=== PATIENT | female | born 1950 | race Caucasian/White ===

== ENCOUNTER 2017-01-08 17:03 | Inpatient (IN) | payer OTHER ==
[~2017-01-08] VITALS: Ht 157.5 cm; Wt 110.8 kg
[2017-01-08] MEDS ORDERED: dilTIAZem IV PUSH 25 MG/5 ML VIAL IVP ONE (18:15)
[2017-01-08] MEDS ORDERED: HYDROmorphone 2 MG/ML VIAL IV ONE (18:15)
[2017-01-08] MEDS ORDERED: IV NORMAL SALINE 1000ML BAG 1,000 ML IV ONE (18:15)
[2017-01-08] MEDS ORDERED: ONDANSETRON PF 4 MG/2 ML VIAL. IV ONE (18:15)
[2017-01-08 18:22] LABS: BASO # 0.1 x10^3/uL (0.0-0.2); BASO % 1 % (0-3); EOS % 1 % (0-3); HEMATOCRIT 48.1 % (36.0-47.0); HEMOGLOBIN 16.2 g/dL (12.0-15.5); LYMPH # 1.3 x10^3/uL (1.0-4.8); LYMPH % 13 % (24-48); MEAN CORPUSCULAR HEMOGLOBIN 34 pg (25-35); MEAN CORPUSCULAR HGB CONC 34 g/dL (31-37); MEAN CORPUSCULAR VOLUME 99 fL (79-100); MONO % 8 % (0-9); NEUT % 76 % (31-73); PLATELET COUNT 215 x10^3/uL (140-400); RED BLOOD COUNT 4.84 x10^6/uL (3.50-5.40); WHITE BLOOD COUNT 9.6 x10^3/uL (4.0-11.0)
[2017-01-08 18:30] LABS: PROTHROMBIN TIME PATIENT 12.6 SEC (11.7-14.0)
[2017-01-08 18:45] LABS: CALCIUM 10.1 mg/dL (8.5-10.1); CREATININE 0.9 mg/dL (0.6-1.0); GFR 62.3; POTASSIUM 3.7 mmol/L (3.5-5.1)
[2017-01-08 18:51] LABS: TOTAL BILIRUBIN 0.9 mg/dL (0.2-1.0); TOTAL PROTEIN 8.2 g/dL (6.4-8.2)
[2017-01-08] MEDS ORDERED: NITROGLYCERIN SUBLINGUAL 0.4 MG BOTTLE OF 25. SL PRN (19:15)
[2017-01-08] MEDS ORDERED: ACETAMINOPHEN 325 MG TABLET. PO PRN (19:15)
[2017-01-08] MEDS ORDERED: fentaNYL PF VIAL 100 MCG/2 ML VIAL IV PRN (19:15)
[2017-01-08] MEDS ORDERED: ONDANSETRON PF 4 MG/2 ML VIAL. IV PRN ×3 (19:15→19:30)
--- NOTE | 2017-01-08 19:34 | PDOC1 ---
History and Physical Date of Admission Date of Admission DATE: 01/08/17 TIME: 19:26 Identification/Chief Complaint Chief Complaint palpitations, SOA Problems: Source Source: Caregiver, Chart review, Patient History of Present Illness History of Present Illness 66 y.o obese female, BMI 36, sent by [facility] after being found on Atrial fib flutter with HR 112 at the office,. NEw to her, NO hx CAD, CHF, atrial fib, Only HTN, dyslipidemia and OA with prev knee sxs. She actually fell few days ago, hurt her back, went to [place] er where xrays done showed no fx and was dcd on PO flexeril, pain meds, with no resolve, SHe came to her PCP as ff up for her back pain issue today and thats where they found she was in atrial fib, hence advised ER,. NOW at ER, HR 112, some palpitations, 2 cups black coffee drinker, no known thyroid issues. BEing started omn cardizem gtt. Her back pain is signif, more bothersome to her than anything else. Past Medical History Cardiovascular: HTN, Hyperlipidemia Past Surgical History Past Surgical History: , Hysterectomy, Other (mensical sx) Family History Family History: Hypertension Social History Smoke: Quit ALCOHOL: none Drugs: None Current Medications Current Medications Current Medications Hydromorphone HCl (Dilaudid) 1 mg 1X ONCE IV Last administered on 01/08/17 18 :56; Start 01/08/17 at 18:15; Stop 01/08/17 at 18:16; Status DC Ondansetron HCl (Zofran) 4 mg 1X ONCE IV Last administered on 01/08/17 18:55 ; Start 01/08/17 at 18:15; Stop 01/08/17 at 18:16; Status DC Sodium Chloride 1,000 ml @ 1,000 mls/hr 1X ONCE IV Last administered on 18:52; Start 01/08/17 at 18:15; Stop 01/08/17 at 19:14; Status DC Diltiazem HCl 125 mg/Dextrose 125 ml @ 0 mls/hr CONT PRN IV SEE I/O RECORD Last administered on 01/08/17 18:46; Start 01/08/17 at 18:15 Diltiazem HCl (Cardizem) 10 mg 1X ONCE IVP Last administered on 01/08/17t 18: 53; Start 01/08/17 at 18:15; Stop 01/08/17 at 18:16; Status DC Ondansetron HCl (Zofran) 4 mg PRN Q8HRS PRN IV NAUSEA/VOMITING; Start 01/08/17 at 19:15; Stop 01/09/17 at 19:14 Fentanyl Citrate (Fentanyl 2ml Vial) 50 mcg PRN Q2HR PRN IV PAIN; Start at 19:15; Stop 01/09/17 at 19:14 Acetaminophen (Tylenol) 650 mg PRN Q4HRS PRN PO FEVER; Start 01/08/17 at 19:15 ; Stop 01/09/17 at 19:14 Nitroglycerin (Nitrostat) 0.4 mg PRN Q5MIN PRN SL CHEST PAIN; Start 01/08/17 at 19:15; Stop 01/09/17 at 19:14 Allergies Allergies: Coded Allergies: codeine (Unverified Adverse Reaction, Mild, Nausea and Vomiting, 09/27/13) ROS Review of System as per HPI, palpitations, no chest pain, does have SOA Physical Exam General: Alert, Oriented X3, Cooperative, No acute distress HEENT: PERRLA, EOMI Lungs: Clear to auscultation, Normal air movement, Other (dec BS sec to inc AP diameter) Heart: S1S2, no thrills, no rubs, no gallops, no murmurs, irregularly irregular Cardiovascular: S1, S2 Abdomen: Normal bowel sounds, Soft, No tenderness, No hepatosplenomegaly, No masses Extremities: No clubbing, No cyanosis, No edema, Normal pulses, No tenderness/ swelling Skin: No rashes, No breakdown, No significant lesion Neuro: Normal gait, Normal speech, Strength at 5/5 X4 ext, Normal tone, Sensation intact, Cranial nerves 3-12 NL, Reflexes 2+ Psych/Mental Status: Mental status NL, Mood NL Vitals Vitals Vital Signs Date Time Temp Pulse Resp B/P (MAP) Pulse Ox O2 Delivery O2 Flow Rate FiO2 01/08/17 19:00 118 18 140/83 (102) 95 Room Air 01/08/17 17:51 98.0 98.0 Labs Labs Laboratory Tests Test 01/08/17 17:40 White Blood Count 9.6 x10^3/uL (4.0-11.0) Red Blood Count 4.84 x10^6/uL (3.50-5.40) Hemoglobin 16.2 g/dL (12.0-15.5) Hematocrit 48.1 % (36.0-47.0) Mean Corpuscular Volume 99 fL (79-100) Mean Corpuscular Hemoglobin 34 pg (25-35) Mean Corpuscular Hemoglobin Concent 34 g/dL (31-37) Red Cell Distribution Width 14.0 % (11.5-14.5) Platelet Count 215 x10^3/uL (140-400) Neutrophils (%) (Auto) 76 % (31-73) Lymphocytes (%) (Auto) 13 % (24-48) Monocytes (%) (Auto) 8 % (0-9) Eosinophils (%) (Auto) 1 % (0-3) Basophils (%) (Auto) 1 % (0-3) Neutrophils # (Auto) 7.3 x10^3uL (1.8-7.7) Lymphocytes # (Auto) 1.3 x10^3/uL (1.0-4.8) Monocytes # (Auto) 0.8 x10^3/uL (0.0-1.1) Eosinophils # (Auto) 0.1 x10^3/uL (0.0-0.7) Basophils # (Auto) 0.1 x10^3/uL (0.0-0.2) Prothrombin Time 12.6 SEC (11.7-14.0) Prothromb Time International Ratio 1.0 (0.8-1.1) Sodium Level 143 mmol/L (136-145) Potassium Level 3.7 mmol/L (3.5-5.1) Chloride Level 100 mmol/L (98-107) Carbon Dioxide Level 32 mmol/L (21-32) Anion Gap 11 (6-14) Blood Urea Nitrogen 23 mg/dL (7-20) Creatinine 0.9 mg/dL (0.6-1.0) Estimated GFR (Cockcroft-Gault) 62.3 BUN/Creatinine Ratio 26 (6-20) Glucose Level 118 mg/dL (70-99) Calcium Level 10.1 mg/dL (8.5-10.1) Total Bilirubin 0.9 mg/dL (0.2-1.0) Aspartate Amino Transf (AST/SGOT) 30 U/L (15-37) Alanine Aminotransferase (ALT/SGPT) 32 U/L (14-59) Alkaline Phosphatase 95 U/L (46-116) Troponin I Quantitative < 0.017 ng/mL (0.000-0.055) FR-Xsz-A-Type Natriuretic Peptide 699 pg/mL (0-124) Total Protein 8.2 g/dL (6.4-8.2) Albumin 4.0 g/dL (3.4-5.0) Albumin/Globulin Ratio 1.0 (1.0-1.7) Thyroid Stimulating Hormone (TSH) 2.007 uIU/mL (0.358-3.74) Laboratory Tests Test 01/08/17 17:40 White Blood Count 9.6 x10^3/uL (4.0-11.0) Red Blood Count 4.84 x10^6/uL (3.50-5.40) Hemoglobin 16.2 g/dL (12.0-15.5) Hematocrit 48.1 % (36.0-47.0) Mean Corpuscular Volume 99 fL (79-100) Mean Corpuscular Hemoglobin 34 pg (25-35) Mean Corpuscular Hemoglobin Concent 34 g/dL (31-37) Red Cell Distribution Width 14.0 % (11.5-14.5) Platelet Count 215 x10^3/uL (140-400) Neutrophils (%) (Auto) 76 % (31-73) Lymphocytes (%) (Auto) 13 % (24-48) Monocytes (%) (Auto) 8 % (0-9) Eosinophils (%) (Auto) 1 % (0-3) Basophils (%) (Auto) 1 % (0-3) Neutrophils # (Auto) 7.3 x10^3uL (1.8-7.7) Lymphocytes # (Auto) 1.3 x10^3/uL (1.0-4.8) Monocytes # (Auto) 0.8 x10^3/uL (0.0-1.1) Eosinophils # (Auto) 0.1 x10^3/uL (0.0-0.7) Basophils # (Auto) 0.1 x10^3/uL (0.0-0.2) Prothrombin Time 12.6 SEC (11.7-14.0) Prothromb Time International Ratio 1.0 (0.8-1.1) Sodium Level 143 mmol/L (136-145) Potassium Level 3.7 mmol/L (3.5-5.1) Chloride Level 100 mmol/L (98-107) Carbon Dioxide Level 32 mmol/L (21-32) Anion Gap 11 (6-14) Blood Urea Nitrogen 23 mg/dL (7-20) Creatinine 0.9 mg/dL (0.6-1.0) Estimated GFR (Cockcroft-Gault) 62.3 BUN/Creatinine Ratio 26 (6-20) Glucose Level 118 mg/dL (70-99) Calcium Level 10.1 mg/dL (8.5-10.1) Total Bilirubin 0.9 mg/dL (0.2-1.0) Aspartate Amino Transf (AST/SGOT) 30 U/L (15-37) Alanine Aminotransferase (ALT/SGPT) 32 U/L (14-59) Alkaline Phosphatase 95 U/L (46-116) Troponin I Quantitative < 0.017 ng/mL (0.000-0.055) MG-Inu-O-Type Natriuretic Peptide 699 pg/mL (0-124) Total Protein 8.2 g/dL (6.4-8.2) Albumin 4.0 g/dL (3.4-5.0) Albumin/Globulin Ratio 1.0 (1.0-1.7) Thyroid Stimulating Hormone (TSH) 2.007 uIU/mL (0.358-3.74) VTE Prophylaxis Ordered VTE Prophylaxis Devices: Yes VTE Pharmacological Prophylaxi: Yes Assessment/Plan Assessment/Plan 1. New atrial fib/flutter RVR 2. Obesity BMI 36 3. Recent fall with back injury 4. Acute back pain no resolve with PO pain meds 5. HTN, dyslipidemia - chronic stable 6. Ex smoker - quit 30 yrs ago Plan: Admit 2 [place] [facility] consult Check TSH, check mag calcium given atrial fib Will likely need at least echo Lovenox for DVT prophy CHADS score 2 - will defer AC to cards - depends whether how long she remains atrial fib COnsult physiatry re back pain [place] of lidoderm patch CHRISTOPHER flexeril, nSAID and prn narcs If no resolve might need MRI or CT back PT/OT PLan of care dw family and pt - agreeable Seen at ER RAMANDEEP BABCOCK MD Jan 08, 2017 19:33
--- NOTE | 2017-01-08 20:15 | PHYS DOC ---
Past Medical History Past Medical History: Anxiety, Depression, High Cholesterol, Hypertension Past Surgical History: Hysterectomy Additional Information: Quit about 30 years ago. Alcohol Use: None Additional Information: "Use to drink quite often but quit about the same time, years ago." Drug Use: None, Barbituate Adult General Chief Complaint Chief Complaint: OTHER COMPLAINTS HPI HPI Patient is a 66 year old female with a history of hypertension, high cholesterol, obstructive sleep apnea, presents here today secondary to abnormal EKG that was found with Dr. Archer's office. Patient reports that she fell on Wednesday and was seen at [facility] by me. Patient reports that she was given adequate pain medicines and then followed up with Dr. Archer. Patient saw Dr. Archer in his office today secondary to persistent pain to her lower back. While in his office the patient was found to be in rapid A. fib. Patient was transferred here to the ER for further evaluation. Patient denies any fevers shakes chills. Patient has any vomiting or diarrhea. Patient reports she does feel nauseous. Patient has any chest pain or pressure. Patient has any shortness of breath. Patient reports that she does have lower extremity edema however that is chronic and unchanged. Patient denies any orthopnea PND or dyspnea on exertion. Patient has any history of diabetes lung liver or kidney problems. Patient has no history of hypertension, stroke, CHF, PE, DVT. Patient does not smoke or drink. Review of systems: Constitutional: Denies fever or chills Eyes: Denies change in visual acuity, redness, or eye pain HENT: Denies nasal congestion or sore throat All other review systems are negative except as documented in the history of present illness portion. Physical exam: Constitutional: Well developed, well nourished, no acute distress, non-toxic appearance. HENT: Normocephalic, atraumatic, bilateral external ears normal, oropharynx moist, no oral exudates, nose normal. Eyes: PERRLA, EOMI, conjunctiva normal, no discharge. Neck: Normal range of motion, no tenderness, supple, no stridor. Cardiovascular: Irregularly irregular tachycardic rhythm. Lungs & Thorax: Bilateral breath sounds clear to auscultation Abdomen: Bowel sounds normal, soft, no tenderness, no masses, no pulsatile masses. Skin: Warm, dry, no erythema, no rash. Cool and clammy. Back: No tenderness, no CVA tenderness. Extremities: No tenderness, no cyanosis, no clubbing, ROM intact, 1+ bipedal edema. No calf tenderness. Neurologic: Alert and oriented X 3, normal motor function, normal sensory function, no focal deficits noted. Psychologic: Affect normal, judgement normal, mood normal. EKG: Atrial fibrillation with nonspecific ST-T wave abnormalities heart rate of [address] elevation [place]. Right bundle-branch block. Chest x-ray reveals enlarged heart no infiltrates or effusions. Patient's labs were within normal limits except for BNP of 699. Assessment and plan This is a 58-year-old female who presents here today secondary to new onset atrial fibrillation. Patient aside from being cool and clammy is asymptomatic. Patient denies any chest pain shortness of breath dysuria exertion or other heart failure symptoms. While the ER the patient was started on a Cardizem drip and bolus of Cardizem. Patient will be admitted to the [facility] for further evaluation and management of her new onset atrial fibrillation. Case has been discussed with Dr. davidson with assisting with care of this patient. Cardiology will be consult. Critical care time of 35 minutes reutilized and treatment and management of this patient's atrial fibrillation, SVT with RVR, new onset. Patient was given IV Cardizem to control her rate. Patient's blood pressure and rhythm has been monitored while in the ED. Current Medications Current Medications Current Medications Medications (Trade) Dose Ordered Sig/Moose Start Time Stop Time Status Last Admin Dose Admin Diltiazem HCl (Cardizem) 10 mg 1X ONCE 01/08/17 18:15 01/08/17 18:16 DC 01/08/17 18:53 10 MG Diltiazem HCl 125 mg/Dextrose 125 ml @ 0 mls/hr CONT PRN 01/08/17 18:15 01/08/17 18:46 2.5 MLS/HR Hydromorphone HCl (Dilaudid) 1 mg 1X ONCE 01/08/17 18:15 01/08/17 18:16 DC 01/08/17 18:56 1 MG Ondansetron HCl (Zofran) 4 mg 1X ONCE 01/08/17 18:15 01/08/17 18:16 DC 01/08/17 18:55 4 MG Sodium Chloride 1,000 ml @ 1,000 mls/hr 1X ONCE 01/08/17 18:15 01/08/17 19:14 DC 01/08/17 18:52 1,000 MLS/HR Allergies Allergies Allergies Coded Allergies Type Severity Reaction Last Updated Verified codeine Adverse Reaction Mild Nausea and Vomiting 09/27/13 No Current Patient Data Vital Signs Vital Signs Date Time Temp Pulse Resp B/P (MAP) Pulse Ox O2 Delivery O2 Flow Rate FiO2 01/08/17 19:00 118 18 140/83 (102) 95 Room Air 01/08/17 17:51 98.0 98.0 Lab Values Laboratory Tests Test 01/08/17 17:40 White Blood Count 9.6 x10^3/uL (4.0-11.0) Red Blood Count 4.84 x10^6/uL (3.50-5.40) Hemoglobin 16.2 g/dL (12.0-15.5) H Hematocrit 48.1 % (36.0-47.0) H Mean Corpuscular Volume 99 fL (79-100) Mean Corpuscular Hemoglobin 34 pg (25-35) Mean Corpuscular Hemoglobin Concent 34 g/dL (31-37) Red Cell Distribution Width 14.0 % (11.5-14.5) Platelet Count 215 x10^3/uL (140-400) Neutrophils (%) (Auto) 76 % (31-73) H Lymphocytes (%) (Auto) 13 % (24-48) L Monocytes (%) (Auto) 8 % (0-9) Eosinophils (%) (Auto) 1 % (0-3) Basophils (%) (Auto) 1 % (0-3) Neutrophils # (Auto) 7.3 x10^3uL (1.8-7.7) Lymphocytes # (Auto) 1.3 x10^3/uL (1.0-4.8) Monocytes # (Auto) 0.8 x10^3/uL (0.0-1.1) Eosinophils # (Auto) 0.1 x10^3/uL (0.0-0.7) Basophils # (Auto) 0.1 x10^3/uL (0.0-0.2) Prothrombin Time 12.6 SEC (11.7-14.0) Prothrombin Time INR 1.0 (0.8-1.1) Sodium Level 143 mmol/L (136-145) Potassium Level 3.7 mmol/L (3.5-5.1) Chloride Level 100 mmol/L (98-107) Carbon Dioxide Level 32 mmol/L (21-32) Anion Gap 11 (6-14) Blood Urea Nitrogen 23 mg/dL (7-20) H Creatinine 0.9 mg/dL (0.6-1.0) Estimated GFR (Cockcroft-Gault) 62.3 BUN/Creatinine Ratio 26 (6-20) H Glucose Level 118 mg/dL (70-99) H Calcium Level 10.1 mg/dL (8.5-10.1) Magnesium Level 1.9 mg/dL (1.8-2.4) Total Bilirubin 0.9 mg/dL (0.2-1.0) Aspartate Amino Transferase (AST) 30 U/L (15-37) Alanine Aminotransferase (ALT) 32 U/L (14-59) Alkaline Phosphatase 95 U/L (46-116) Troponin I Quantitative < 0.017 ng/mL (0.000-0.055) KQ-Ssf-L-Type Natriuretic Peptide 699 pg/mL (0-124) H Total Protein 8.2 g/dL (6.4-8.2) Albumin 4.0 g/dL (3.4-5.0) Albumin/Globulin Ratio 1.0 (1.0-1.7) Thyroid Stimulating Hormone (TSH) 2.007 uIU/mL (0.358-3.74) Laboratory Tests 01/08/17 17:40 Laboratory Tests 01/08/17 17:40 EKG EKG [] Radiology/Procedures Radiology/Procedures [] Course & Med Decision Making Course & Med Decision Making Pertinent Labs and Imaging studies reviewed. (See chart for details) [] Dragon Disclaimer Dragon Disclaimer This electronic medical record was generated, in whole or in part, using a voice recognition dictation system. Departure Departure Impression: Primary Impression: New onset a-fib Disposition: ADMITTED INPATIENT Admitting Physician: Meredith Farley Condition: GUARDED Referrals: BEBETO ARCHER Jr, MD (PCP) YASMEEN REAL MD Jan 08, 2017 20:15
[2017-01-08 20:30] VITALS: BP 146/67
[2017-01-08] MEDS: LIDOCAINE (700MG/PATCH) PATCH. TD SCH (21:37)
[2017-01-08] MEDS: IBUPROFEN 600 MG TABLET. PO SCH (21:38)
[2017-01-08] MEDS: CYCLOBENZAPRINE 10 MG TABLET. PO SCH (21:38)
[2017-01-08] MEDS ORDERED: CYCL10TA2 PO (22:53)
[2017-01-08] MEDS ORDERED: HYDR-2758 PO (22:53)
[2017-01-08] MEDS ORDERED: LOSA1TAB22 PO (22:53)
[2017-01-08] MEDS ORDERED: SERT100T PO (22:53)
[2017-01-08] MEDS ORDERED: SIMV40TA3 PO (22:53)
[2017-01-08] MEDS ORDERED: IBUP-1007 PO (22:53)
[2017-01-08 23:45] VITALS: BP 129/67
[2017-01-09 03:30] VITALS: BP 113/71
[2017-01-09 07:00] VITALS: BP 106/64
[2017-01-09] MEDS ORDERED: DOCU-109 PO (07:17)
[2017-01-09] MEDS ORDERED: ENOXAPARIN 40 MG/0.4 ML SYRINGE. SQ SCH (09:00)
--- NOTE | 2017-01-09 09:06 | RAD ---
AP chest. History: Supraventricular tachycardia AP view was taken of the chest. Heart is upper normal in size. There is no effusion. There are no confluent infiltrates. Impression: 1. No acute chest disease.
[2017-01-09] MEDS: MAGNESIUM HYDROXIDE 2,400 MG/30 ML ORAL.SUSP. PO PRN (09:22)
[2017-01-09] MEDS: CYCLOBENZAPRINE 10 MG TABLET. PO SCH (09:23)
[2017-01-09] MEDS: LIDOCAINE (700MG/PATCH) PATCH. TD SCH (09:23)
[2017-01-09] MEDS: POLYETHYLENE GLYCOL 3350 17 GM PACKET. PO SCH (09:23)
[2017-01-09] MEDS: IBUPROFEN 600 MG TABLET. PO SCH (09:24)
--- NOTE | 2017-01-09 10:51 | PDOC ---
PROGRESS NOTES Chief Complaint Chief Complaint 1. New atrial fib/flutter RVR 2. Obesity BMI 36 3. Recent fall with back injury 4. Acute back pain no resolve with PO pain meds 5. HTN, dyslipidemia - chronic stable 6. Ex smoker - quit 30 yrs ago History of Present Illness History of Present Illness BAck hurts mid to lower, right side more Fell recently - xrays at [facility] neg In and out of atrial fib - [place] [facility] [place] electrical cardioversion on wednesday PLAN: CArdioversion Wednesday [facility] Phsyiatry is now seeing pt - dw physiatry might need some imaging - my lidoderm, NSAId etc not affording good relief Ok to have PT/OT - Dw Charlee Vitals Vitals Vital Signs Date Time Temp Pulse Resp B/P (MAP) Pulse Ox O2 Delivery O2 Flow Rate FiO2 01/09/17 07:00 97.6 82 18 106/64 (78) 90 Room Air 97.6 01/08/17 20:00 2.0 Physical Exam General: Alert, Oriented X3, Cooperative, No acute distress Abdomen: Normal bowel sounds, Soft, No tenderness, No hepatosplenomegaly, No masses Extremities: No clubbing, No cyanosis, No edema, Normal pulses, No tenderness/ swelling Skin: No rashes, No breakdown, No significant lesion Labs LABS Laboratory Tests Test 01/08/17 17:40 01/09/17 01:00 01/09/17 06:45 White Blood Count 9.6 x10^3/uL (4.0-11.0) Red Blood Count 4.84 x10^6/uL (3.50-5.40) Hemoglobin 16.2 g/dL (12.0-15.5) Hematocrit 48.1 % (36.0-47.0) Mean Corpuscular Volume 99 fL (79-100) Mean Corpuscular Hemoglobin 34 pg (25-35) Mean Corpuscular Hemoglobin Concent 34 g/dL (31-37) Red Cell Distribution Width 14.0 % (11.5-14.5) Platelet Count 215 x10^3/uL (140-400) Neutrophils (%) (Auto) 76 % (31-73) Lymphocytes (%) (Auto) 13 % (24-48) Monocytes (%) (Auto) 8 % (0-9) Eosinophils (%) (Auto) 1 % (0-3) Basophils (%) (Auto) 1 % (0-3) Neutrophils # (Auto) 7.3 x10^3uL (1.8-7.7) Lymphocytes # (Auto) 1.3 x10^3/uL (1.0-4.8) Monocytes # (Auto) 0.8 x10^3/uL (0.0-1.1) Eosinophils # (Auto) 0.1 x10^3/uL (0.0-0.7) Basophils # (Auto) 0.1 x10^3/uL (0.0-0.2) Prothrombin Time 12.6 SEC (11.7-14.0) Prothromb Time International Ratio 1.0 (0.8-1.1) Sodium Level 143 mmol/L (136-145) Potassium Level 3.7 mmol/L (3.5-5.1) Chloride Level 100 mmol/L (98-107) Carbon Dioxide Level 32 mmol/L (21-32) Anion Gap 11 (6-14) Blood Urea Nitrogen 23 mg/dL (7-20) Creatinine 0.9 mg/dL (0.6-1.0) Estimated GFR (Cockcroft-Gault) 62.3 BUN/Creatinine Ratio 26 (6-20) Glucose Level 118 mg/dL (70-99) Calcium Level 10.1 mg/dL (8.5-10.1) Magnesium Level 1.9 mg/dL (1.8-2.4) Total Bilirubin 0.9 mg/dL (0.2-1.0) Aspartate Amino Transf (AST/SGOT) 30 U/L (15-37) Alanine Aminotransferase (ALT/SGPT) 32 U/L (14-59) Alkaline Phosphatase 95 U/L (46-116) Troponin I Quantitative < 0.017 ng/mL (0.000-0.055) < 0.017 ng/mL (0.000-0.055) < 0.017 ng/mL (0.000-0.055) AA-Rbb-I-Type Natriuretic Peptide 699 pg/mL (0-124) Total Protein 8.2 g/dL (6.4-8.2) Albumin 4.0 g/dL (3.4-5.0) Albumin/Globulin Ratio 1.0 (1.0-1.7) Thyroid Stimulating Hormone (TSH) 2.007 uIU/mL (0.358-3.74) Review of Systems Review of Systems back hurts, no CP, no SOA Comment Review of Relevant I have reviewed the following items peter (where applicable) has been applied. Labs Laboratory Tests Test 01/08/17 17:40 01/09/17 01:00 01/09/17 06:45 White Blood Count 9.6 x10^3/uL (4.0-11.0) Red Blood Count 4.84 x10^6/uL (3.50-5.40) Hemoglobin 16.2 g/dL (12.0-15.5) Hematocrit 48.1 % (36.0-47.0) Mean Corpuscular Volume 99 fL (79-100) Mean Corpuscular Hemoglobin 34 pg (25-35) Mean Corpuscular Hemoglobin Concent 34 g/dL (31-37) Red Cell Distribution Width 14.0 % (11.5-14.5) Platelet Count 215 x10^3/uL (140-400) Neutrophils (%) (Auto) 76 % (31-73) Lymphocytes (%) (Auto) 13 % (24-48) Monocytes (%) (Auto) 8 % (0-9) Eosinophils (%) (Auto) 1 % (0-3) Basophils (%) (Auto) 1 % (0-3) Neutrophils # (Auto) 7.3 x10^3uL (1.8-7.7) Lymphocytes # (Auto) 1.3 x10^3/uL (1.0-4.8) Monocytes # (Auto) 0.8 x10^3/uL (0.0-1.1) Eosinophils # (Auto) 0.1 x10^3/uL (0.0-0.7) Basophils # (Auto) 0.1 x10^3/uL (0.0-0.2) Prothrombin Time 12.6 SEC (11.7-14.0) Prothromb Time International Ratio 1.0 (0.8-1.1) Sodium Level 143 mmol/L (136-145) Potassium Level 3.7 mmol/L (3.5-5.1) Chloride Level 100 mmol/L (98-107) Carbon Dioxide Level 32 mmol/L (21-32) Anion Gap 11 (6-14) Blood Urea Nitrogen 23 mg/dL (7-20) Creatinine 0.9 mg/dL (0.6-1.0) Estimated GFR (Cockcroft-Gault) 62.3 BUN/Creatinine Ratio 26 (6-20) Glucose Level 118 mg/dL (70-99) Calcium Level 10.1 mg/dL (8.5-10.1) Magnesium Level 1.9 mg/dL (1.8-2.4) Total Bilirubin 0.9 mg/dL (0.2-1.0) Aspartate Amino Transf (AST/SGOT) 30 U/L (15-37) Alanine Aminotransferase (ALT/SGPT) 32 U/L (14-59) Alkaline Phosphatase 95 U/L (46-116) Troponin I Quantitative < 0.017 ng/mL (0.000-0.055) < 0.017 ng/mL (0.000-0.055) < 0.017 ng/mL (0.000-0.055) YR-Oia-A-Type Natriuretic Peptide 699 pg/mL (0-124) Total Protein 8.2 g/dL (6.4-8.2) Albumin 4.0 g/dL (3.4-5.0) Albumin/Globulin Ratio 1.0 (1.0-1.7) Thyroid Stimulating Hormone (TSH) 2.007 uIU/mL (0.358-3.74) Laboratory Tests Test 01/08/17 17:40 01/09/17 01:00 01/09/17 06:45 White Blood Count 9.6 x10^3/uL (4.0-11.0) Red Blood Count 4.84 x10^6/uL (3.50-5.40) Hemoglobin 16.2 g/dL (12.0-15.5) Hematocrit 48.1 % (36.0-47.0) Mean Corpuscular Volume 99 fL (79-100) Mean Corpuscular Hemoglobin 34 pg (25-35) Mean Corpuscular Hemoglobin Concent 34 g/dL (31-37) Red Cell Distribution Width 14.0 % (11.5-14.5) Platelet Count 215 x10^3/uL (140-400) Neutrophils (%) (Auto) 76 % (31-73) Lymphocytes (%) (Auto) 13 % (24-48) Monocytes (%) (Auto) 8 % (0-9) Eosinophils (%) (Auto) 1 % (0-3) Basophils (%) (Auto) 1 % (0-3) Neutrophils # (Auto) 7.3 x10^3uL (1.8-7.7) Lymphocytes # (Auto) 1.3 x10^3/uL (1.0-4.8) Monocytes # (Auto) 0.8 x10^3/uL (0.0-1.1) Eosinophils # (Auto) 0.1 x10^3/uL (0.0-0.7) Basophils # (Auto) 0.1 x10^3/uL (0.0-0.2) Prothrombin Time 12.6 SEC (11.7-14.0) Prothromb Time International Ratio 1.0 (0.8-1.1) Sodium Level 143 mmol/L (136-145) Potassium Level 3.7 mmol/L (3.5-5.1) Chloride Level 100 mmol/L (98-107) Carbon Dioxide Level 32 mmol/L (21-32) Anion Gap 11 (6-14) Blood Urea Nitrogen 23 mg/dL (7-20) Creatinine 0.9 mg/dL (0.6-1.0) Estimated GFR (Cockcroft-Gault) 62.3 BUN/Creatinine Ratio 26 (6-20) Glucose Level 118 mg/dL (70-99) Calcium Level 10.1 mg/dL (8.5-10.1) Magnesium Level 1.9 mg/dL (1.8-2.4) Total Bilirubin 0.9 mg/dL (0.2-1.0) Aspartate Amino Transf (AST/SGOT) 30 U/L (15-37) Alanine Aminotransferase (ALT/SGPT) 32 U/L (14-59) Alkaline Phosphatase 95 U/L (46-116) Troponin I Quantitative < 0.017 ng/mL (0.000-0.055) < 0.017 ng/mL (0.000-0.055) < 0.017 ng/mL (0.000-0.055) VW-Bhr-J-Type Natriuretic Peptide 699 pg/mL (0-124) Total Protein 8.2 g/dL (6.4-8.2) Albumin 4.0 g/dL (3.4-5.0) Albumin/Globulin Ratio 1.0 (1.0-1.7) Thyroid Stimulating Hormone (TSH) 2.007 uIU/mL (0.358-3.74) Medications Current Medications Hydromorphone HCl (Dilaudid) 1 mg 1X ONCE IV Last administered on 01/08/17 18 :56; Start 01/08/17 at 18:15; Stop 01/08/17 at 18:16; Status DC Ondansetron HCl (Zofran) 4 mg 1X ONCE IV Last administered on 01/08/17 18:55 ; Start 01/08/17 at 18:15; Stop 01/08/17 at 18:16; Status DC Sodium Chloride 1,000 ml @ 1,000 mls/hr 1X ONCE IV Last administered on 18:52; Start 01/08/17 at 18:15; Stop 01/08/17 at 19:14; Status DC Diltiazem HCl 125 mg/Dextrose 125 ml @ 0 mls/hr CONT PRN IV SEE I/O RECORD Last administered on 01/09/17 06:14; Start 01/08/17 at 18:15 Diltiazem HCl (Cardizem) 10 mg 1X ONCE IVP Last administered on 01/08/17 18: 53; Start 01/08/17 at 18:15; Stop 01/08/17 at 18:16; Status DC Ondansetron HCl (Zofran) 4 mg PRN Q8HRS PRN IV NAUSEA/VOMITING; Start 01/08/17 at 19:15; Stop 01/08/17 at 19:25; Status DC Fentanyl Citrate (Fentanyl 2ml Vial) 50 mcg PRN Q2HR PRN IV PAIN Last administered on 01/09/17 04:22; Start 01/08/17 at 19:15; Stop 01/09/17 at 19:14 Acetaminophen (Tylenol) 650 mg PRN Q4HRS PRN PO FEVER; Start 01/08/17 at 19:15 ; Stop 01/09/17 at 19:14 Nitroglycerin (Nitrostat) 0.4 mg PRN Q5MIN PRN SL CHEST PAIN; Start 01/08/17 at 19:15; Stop 01/09/17 at 19:14 Ondansetron HCl (Zofran) 4 mg PRN Q6HRS PRN IV NAUSEA/VOMITING Last administered on 01/09/17 07:22; Start 01/08/17 at 19:30; Stop 01/09/17 at 19:29 Cyclobenzaprine HCl (Flexeril) 10 mg TID PO Last administered on 01/09/17 09: 23; Start 01/08/17 at 21:00 Ibuprofen (Motrin) 600 mg TID PO Last administered on 01/09/17 09:24; Start at 21:00 Lidocaine (Lidoderm) 1 patch DAILY TD Last administered on 01/09/17 09:23; Start 01/08/17 at 19:30 Ondansetron HCl (Zofran) 4 mg PRN Q6HRS PRN IV NAUSEA/VOMITING; Start 01/08/17 at 19:30; Stop 01/09/17 at 19:29; Status UNV Enoxaparin Sodium (Lovenox 40mg Syringe) 40 mg Q24H SQ Last administered on 09:24; Start 01/09/17 at 09:00 Polyethylene Glycol (miraLAX PACKET) 17 gm DAILY PO Last administered on 09:23; Start 01/09/17 at 09:30 Magnesium Hydroxide (Milk Of Magnesia) 2,400 mg PRN DAILY PRN PO CONSTIPATION Last administered on 01/09/17 09:22; Start 01/09/17 at 09:00 Active Scripts Active Reported Colace (Docusate Sodium) 100 Mg Capsule 100 Mg PO BID PRN Hydrocodone-Apap 5-325 (Hydrocodone Bit/Acetaminophen) 1 Each Tablet 1 Tab PO PRN Q6HRS PRN Cyclobenzaprine Hcl 10 Mg Tablet 1 Tab PO TID Ibuprofen 600 Mg Tablet 600 Mg PO PRN Q6HRS PRN Simvastatin 40 Mg Tablet 1 Tab PO QHS Losartan-Hctz 100-25 Mg Tab (Losartan/Hydrochlorothiazide) 1 Each Tablet 1 Tab PO DAILY Zoloft (Sertraline Hcl) 100 Mg Tablet 1 Tab PO DAILY Vitals/I & O Vital Sign - Last 24 Hours 01/08/17 01/08/17 01/08/17 01/08/17 17:51 18:30 18:53 18:56 Temp 98.0 98.0 Pulse 119 130 133 Resp 21 20 16 B/P (MAP) 153/94 (113) 151/111 (124) 157/83 Pulse Ox 94 92 96 O2 Delivery Room Air Room Air Room Air 01/08/17 01/08/17 01/08/17 01/08/17 19:00 19:30 20:00 20:30 Temp 97.4 97.4 Pulse 118 110 106 96 Resp 18 20 20 20 B/P (MAP) 140/83 (102) 129/57 (81) 127/72 (90) 146/67 (93) Pulse Ox 95 88 94 99 O2 Delivery Room Air Room Air Nasal Cannula Room Air O2 Flow Rate 2.0 01/08/17 01/09/17 01/09/17 01/09/17 23:45 03:30 04:22 04:40 Temp 97.8 98.6 97.8 98.6 Pulse 104 94 Resp 18 16 18 16 B/P (MAP) 129/67 (87) 113/71 (85) Pulse Ox 95 90 O2 Delivery Room Air Room Air Room Air Room Air 01/09/17 07:00 Temp 97.6 97.6 Pulse 82 Resp 18 B/P (MAP) 106/64 (78) Pulse Ox 90 O2 Delivery Room Air Intake and Output 01/09/17 01/09/17 01/10/17 14:59 22:59 06:59 Intake Total 250 ml Balance 250 ml RAMANDEEP BABCOCK MD Jan 09, 2017 10:51
[2017-01-09 11:00] VITALS: BP 128/59
--- NOTE | 2017-01-09 11:13 | CONS ---
DATE OF CONSULTATION: 01/09/2017 REASON FOR CONSULTATION: New onset atrial fibrillation. HISTORY OF PRESENT ILLNESS: Mrs. Goldstein is a pleasant 66-year-old woman who comes to the hospital in the setting of new onset atrial fibrillation. She had a fall approximately 3 weeks ago and did not have any fractures. She was followed up in the primary care physician's office for persistent back pain, at which time she was noted to be in atrial fibrillation, and sent to the ER for further evaluation and treatment. She was started on Cardizem drip and has had control of her heart rate, and Cardiology has been asked to provide further input regarding her atrial fibrillation. In speaking with the patient, she reports fatigue over the course of the last [id number] or so. Denies any syncope, but does have occasional palpitations. She denies any chest pain. She does have a NYHA class 2-3 symptoms, depending on activity level. She reports compliance with her medications. She unfortunately is not compliant with her CPAP yet due to issues related to her mask. PAST MEDICAL HISTORY: 1. Obstructive sleep apnea. 2. Hypertension. 3. Dyslipidemia. 4. Morbid obesity. ALLERGIES: CODEINE. HOME CARDIOVASCULAR MEDICATIONS: 1. Simvastatin 40 mg daily. 2. Losartan/hydrochlorothiazide 100/25 daily. FAMILY HISTORY: Noncontributory. REVIEW OF SYSTEMS: Negative for 10 out of 14 systems reviewed, unless otherwise mentioned above in HPI. CURRENT CARDIOVASCULAR MEDICATIONS: Include diltiazem drip and Lovenox 40 mg subq for DVT dose. PHYSICAL EXAMINATION: VITAL SIGNS: Afebrile, heart rate 98, respiratory rate 18, blood pressure 106/64, 90% on room air. GENERAL: She is in mild distress due to back pain and lying in bed. HEAD AND NECK: Unremarkable. HEART: Irregularly irregular, without any significant murmurs, rubs, gallops. ABDOMEN: Obese, nontender, and unable to appreciate significant masses. EXTREMITIES: No clubbing, cyanosis or significant edema. MUSCULOSKELETAL: No obvious traumatic lesions noted, but significant immobility and decreased mobility of her legs due to pain. NEUROLOGIC: No focal deficits. DIAGNOSTIC STUDIES: Chest x-ray is unremarkable. Cardiac enzymes are negative x 3. BNP is mildly elevated at 699. Telemetry reveals atrial fibrillation with heart rate of 98. IMPRESSION: Presumed new onset atrial fibrillation in the setting of chronic comorbidities including hypertension, dyslipidemia, morbid obesity and obstructive sleep apnea. RECOMMENDATIONS: I discussed extensively with the patient the pathophysiology of atrial fibrillation including rate versus rhythm control, and the risks, benefits of anticoagulation. We also discussed the various approaches including a MCKAYLA-guided cardioversion as well as outpatient ablative therapies versus conservative management including medical management alone. At this present time, the patient wishes to pursue a cardioversion procedure, which I think is very reasonable. We will continue a Cardizem drip at this time and plan for a MCKAYLA-guided cardioversion on Wednesday, and we will initiate her on anticoagulation, given her CHADS-VASc score that is elevated at 3 for female gender, hypertension and age. Thank you for this consultation. SERENITY RICO MD DR: CHE/carolyn JOB#: [id number] / [id number] TARA
[2017-01-09] MEDS ORDERED: MAGNESIUM CITRATE 296 ML SOLUTION. PO PRN (11:30)
[2017-01-09] MEDS ORDERED: BISACODYL 10 MG SUPP.RECT. PR PRN (11:30)
--- NOTE | 2017-01-09 12:48 | EKG ---
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
[2017-01-09] MEDS: methylPREDNISolone 4 MG TABLET. PO SCH ×4 (12:55→21:06)
[2017-01-09] MEDS: PANTOPRAZOLE 40 MG TABLET.DR. PO SCH (12:55)
[2017-01-09] MEDS: BISACODYL 5 MG TABLET.DR. PO SCH (12:55)
[2017-01-09] MEDS: HYDROcodone/APAP 10/325 1 TAB TABLET PO PRN ×2 (12:56→21:07)
[2017-01-09] MEDS ORDERED: HEPARIN PF for SUB-Q USE 5,000 UNIT/0.5 ML VIAL. SQ SCH (14:00)
[2017-01-09 15:00] VITALS: BP 164/84
[2017-01-09] MEDS: APIXABAN 5 MG TABLET. PO SCH ×2 (15:38→21:06)
--- NOTE | 2017-01-09 16:24 | RAD ---
MRI lumbar spine 01/09/2017. Reason for exam: Low back pain and right leg radiculopathy 5 days after falling. Sagittal STIR and sagittal and axial T1 and T2-weighted images were performed. There are no available comparison radiographs. FINDINGS: L1-2: Minimal disc bulging is seen. There is no significant disc protrusion. The canal and foramina are not significantly narrowed. L2-3: There is moderate broad-based disc protrusion. This flattens the thecal sac anteriorly and extends into the lower foramina on each side. On the right, there may be some extrusion of disc superiorly behind L2. There are mild hypertrophic changes in the posterior elements and there is mild spinal stenosis. L3-4: There is degenerative loss of disc height. There is suggestion of previous surgery. There is no disc protrusion or spinal stenosis. The foramina are not significantly narrowed. L4-5: There is degenerative loss of disc height. There is no disc protrusion. The spinal canal is not narrowed. The foramina appear fairly well maintained. L5-S1: There is some posterior lateral disc bulging into the lower foramina. There is no midline disc protrusion or spinal stenosis. There is suggestion of mild foraminal narrowing. There is some loss of height involving L1 inferiorly with evidence of a fracture line and bone marrow edema. This suggests a recent fracture. There is mild retropulsion. There is roughly 30 percent loss of height. The other lumbar vertebral bodies are normal in height. There is mild edema at the inferior endplate of L2 and superior endplate of L3, likely reactive to the adjacent disc disease. The conus medullaris ends at L1-2. IMPRESSION: There is moderate compression of L1. This appears recent. There is disc protrusion at L2-3 with possible mild extrusion of disc behind L2 toward the right side. Electronically signed by: Gregg Levine Jr., MD (01/09/2017 4:20 PM) [facility]
[2017-01-09 19:55] VITALS: BP 150/94
[2017-01-09] MEDS ORDERED: SERTRALINE 50 MG TABLET. PO ONE (21:00)
[2017-01-09] MEDS: SIMVASTATIN 40 MG TABLET. PO SCH (21:06)
[2017-01-09 23:48] VITALS: BP 154/70
--- NOTE | 2017-01-09 23:56 | CONS ---
DATE OF CONSULTATION: 01/09/2017 LOCATION: She is in room 210. ATTENDING PHYSICIAN: Dr. Farley. The patient was seen at the request of Dr. Farley for rehab evaluation. HISTORY: This is a 66-year-old right-handed female patient with known hypertension, hyperlipidemia, status post hysterectomy, meniscus surgery to her knees, family history of hypertension. The patient quit smoking in the past. The patient has known ALLERGIC TO CODEINE. Dr. Jamison Perez is her family physician. She was admitted after being seen by her nurse practitioner at Dr. Perez's office, noted with new onset atrial fibrillation and she was admitted for further evaluation and treatment. No apparent thyroid issues. The patient admits to lower back pain on and off before, but since she fell accidentally landed on her buttock on 01/04/2017, she started having severe lower back pain with radiation to her right lower extremity with associated tingling and numbness. She is not sure if she is emptying her bladder completely. She also admits left shoulder pain going on for about 3 years. The patient lives in [facility]. No steps for her to manage. Her granddaughter and her family lives upstairs. The patient was independent with her mobility and self-care skills prior to the present fall. PHYSICAL EXAMINATION: Today, revealed a middle-aged female. She is alert, oriented to time, place, person and circumstance and follows commands appropriately, moves all 4 extremities voluntarily where she had 5/5 grade muscle strength and deep tendon reflexes are 1 to 2+ and symmetrical with absent right ankle jerks and she had equal perception of touch and pinprick sensation bilaterally, positive straight leg raising test on the right side, which causes pain in her back. She had some pain on external rotation at right hip joint. She had painful limited movements of her lumbar spine with tenderness to palpation over lumbar paraspinal muscles extending over to sacroiliac joint area and she also had some tenderness to palpation over anterior aspect of the left shoulder. The patient is independent from rolling side to side. I have not tested her transfers or ambulation skills at this time. She had mild crepitus on range of motion of her knee joints without any obvious knee joint effusion. ASSESSMENT: A middle-aged female with recent fall and lumbar sprain with probable associated degenerative disk disease with right lumbar radiculitis to rule out herniated nucleus pulposus at L5-S1 level. The patient also presents with chronic left shoulder tendinitis and degenerative joints of both knees without much pain and hypertension and recent onset atrial fibrillation. RECOMMENDATIONS: Agree with the plans for physical therapy to obtain MRI scan of her lumbar vertebrae without contrast and to start her on Medrol Dosepak and hydrocodone for pain control, Flexeril p.r.n. as she is already complaining about dry mouth to check post-voiding urine residual to make sure she is emptying her bladder completely. Dr. Farley, I appreciate asking me to participate in the care of this interesting patient. I will be glad to follow her with you as needed for her rehabilitation. LOYDA ELLER MD DR: CHRISSY/carolyn JOB#: [id number] / [id number]
[2017-01-10 03:55] VITALS: BP 128/78
[2017-01-10] MEDS: HYDROcodone/APAP 10/325 1 TAB TABLET PO PRN ×4 (06:47→22:30)
[2017-01-10 07:00] VITALS: BP 121/76
--- NOTE | 2017-01-10 08:30 | PDOC ---
CARDIOLOGY PROGRESS NOTE SUBJECTIVE: Continues to have back pain. Denies any chest pain. Dyspnea stable. Fatigue persistent Having trouble with constipation. OBJECTIVE: Vital SIgns: Vital Signs Date Time Temp Pulse Resp B/P (MAP) Pulse Ox O2 Delivery O2 Flow Rate FiO2 01/10/17 06:47 18 01/10/17 03:55 97.9 94 128/78 (95) 94 Nasal Cannula 2.0 97.9 Objective: Resting in bed. Uncomfortable from back pain. Irr irr rhythm. no murmurs lungs clr abd obese no edema. CURRENT MEDICATIONS: eliquis cardizem losartan simvastatin ASSESSMENT: 1. New onset atrial fibrillation 2. Morbid obesity 3. intractable back pain Problems: PLAN: 1. Plan for MCKAYLA/CVN in a.m. Discussed r/b/a and patient wishes to proceed. 2. Continue present meds. SERENITY RICO MD Jan 10, 2017 08:30
[2017-01-10] MEDS: BISACODYL 5 MG TABLET.DR. PO SCH (09:00)
[2017-01-10] MEDS: POLYETHYLENE GLYCOL 3350 17 GM PACKET. PO SCH (09:03)
[2017-01-10] MEDS: SERTRALINE 50 MG TABLET. PO SCH (09:03)
[2017-01-10] MEDS: APIXABAN 5 MG TABLET. PO SCH ×2 (09:04→20:46)
[2017-01-10] MEDS: LOSARTAN POTASSIUM 50 MG TABLET. PO SCH (09:04)
[2017-01-10] MEDS: hydroCHLOROthiazide 25 MG TABLET PO SCH (09:05)
[2017-01-10] MEDS: methylPREDNISolone 4 MG TABLET. PO SCH ×3 (09:05→18:27)
[2017-01-10] MEDS: PANTOPRAZOLE 40 MG TABLET.DR. PO SCH (09:05)
[2017-01-10] MEDS: LIDOCAINE (700MG/PATCH) PATCH. TD SCH (09:06)
[2017-01-10] MEDS: CYCLOBENZAPRINE 10 MG TABLET. PO PRN ×2 (09:17→20:54)
[2017-01-10 11:00] VITALS: BP 152/76
[2017-01-10] MEDS: ANTI-COAG MONITOR BY PHARMACY. MC PRN (11:10)
--- NOTE | 2017-01-10 12:10 | PDOC ---
PROGRESS NOTES Chief Complaint Chief Complaint 1. New atrial fib/flutter RVR 2. Obesity BMI 36 3. Recent fall with back injury 4. Acute back pain no resolve with PO pain meds 5. HTN, dyslipidemia - chronic stable 6. Ex smoker - quit 30 yrs ago 7. Disc Bulge 2, L2 compression fx L1, recent - recent fall History of Present Illness History of Present Illness BAck pain continues MRI shows: IMPRESSION: There is moderate compression of L1. This appears recent. There is disc protrusion at L2-3 with possible mild extrusion of disc behind L2 toward the right side. Need to inc pain meds Plans on electrical cardioversion of atrial fib on wednesday PLAN: Involve neurosx re the above mRI Inc lortab to q4 Dw RN and pt Vitals Vitals Vital Signs Date Time Temp Pulse Resp B/P (MAP) Pulse Ox O2 Delivery O2 Flow Rate FiO2 01/10/17 11:00 97.4 91 18 152/76 (101) 94 Nasal Cannula 2.0 97.4 Physical Exam General: Alert, Oriented X3, Cooperative, No acute distress Abdomen: Normal bowel sounds, Soft, No tenderness, No hepatosplenomegaly, No masses Extremities: No clubbing, No cyanosis, No edema, Normal pulses, No tenderness/ swelling Skin: No rashes, No breakdown, No significant lesion Review of Systems Review of Systems back pain, no palp, CP, or SOA Comment Review of Relevant I have reviewed the following items peter (where applicable) has been applied. Labs Laboratory Tests Test 01/08/17 17:40 01/09/17 01:00 01/09/17 06:45 White Blood Count 9.6 x10^3/uL (4.0-11.0) Red Blood Count 4.84 x10^6/uL (3.50-5.40) Hemoglobin 16.2 g/dL (12.0-15.5) Hematocrit 48.1 % (36.0-47.0) Mean Corpuscular Volume 99 fL (79-100) Mean Corpuscular Hemoglobin 34 pg (25-35) Mean Corpuscular Hemoglobin Concent 34 g/dL (31-37) Red Cell Distribution Width 14.0 % (11.5-14.5) Platelet Count 215 x10^3/uL (140-400) Neutrophils (%) (Auto) 76 % (31-73) Lymphocytes (%) (Auto) 13 % (24-48) Monocytes (%) (Auto) 8 % (0-9) Eosinophils (%) (Auto) 1 % (0-3) Basophils (%) (Auto) 1 % (0-3) Neutrophils # (Auto) 7.3 x10^3uL (1.8-7.7) Lymphocytes # (Auto) 1.3 x10^3/uL (1.0-4.8) Monocytes # (Auto) 0.8 x10^3/uL (0.0-1.1) Eosinophils # (Auto) 0.1 x10^3/uL (0.0-0.7) Basophils # (Auto) 0.1 x10^3/uL (0.0-0.2) Prothrombin Time 12.6 SEC (11.7-14.0) Prothromb Time International Ratio 1.0 (0.8-1.1) Sodium Level 143 mmol/L (136-145) Potassium Level 3.7 mmol/L (3.5-5.1) Chloride Level 100 mmol/L (98-107) Carbon Dioxide Level 32 mmol/L (21-32) Anion Gap 11 (6-14) Blood Urea Nitrogen 23 mg/dL (7-20) Creatinine 0.9 mg/dL (0.6-1.0) Estimated GFR (Cockcroft-Gault) 62.3 BUN/Creatinine Ratio 26 (6-20) Glucose Level 118 mg/dL (70-99) Calcium Level 10.1 mg/dL (8.5-10.1) Magnesium Level 1.9 mg/dL (1.8-2.4) Total Bilirubin 0.9 mg/dL (0.2-1.0) Aspartate Amino Transf (AST/SGOT) 30 U/L (15-37) Alanine Aminotransferase (ALT/SGPT) 32 U/L (14-59) Alkaline Phosphatase 95 U/L (46-116) Troponin I Quantitative < 0.017 ng/mL (0.000-0.055) < 0.017 ng/mL (0.000-0.055) < 0.017 ng/mL (0.000-0.055) WJ-Llk-W-Type Natriuretic Peptide 699 pg/mL (0-124) Total Protein 8.2 g/dL (6.4-8.2) Albumin 4.0 g/dL (3.4-5.0) Albumin/Globulin Ratio 1.0 (1.0-1.7) Thyroid Stimulating Hormone (TSH) 2.007 uIU/mL (0.358-3.74) Medications Current Medications Hydromorphone HCl (Dilaudid) 1 mg 1X ONCE IV Last administered on 01/08/17 18 :56; Start 01/08/17 at 18:15; Stop 01/08/17 at 18:16; Status DC Ondansetron HCl (Zofran) 4 mg 1X ONCE IV Last administered on 01/08/17 18:55 ; Start 01/08/17 at 18:15; Stop 01/08/17 at 18:16; Status DC Sodium Chloride 1,000 ml @ 1,000 mls/hr 1X ONCE IV Last administered on 18:52; Start 01/08/17 at 18:15; Stop 01/08/17 at 19:14; Status DC Diltiazem HCl 125 mg/Dextrose 125 ml @ 0 mls/hr CONT PRN IV SEE I/O RECORD Last administered on 01/09/17 06:14; Start 01/08/17 at 18:15 Diltiazem HCl (Cardizem) 10 mg 1X ONCE IVP Last administered on 01/08/17 18: 53; Start 01/08/17 at 18:15; Stop 01/08/17 at 18:16; Status DC Ondansetron HCl (Zofran) 4 mg PRN Q8HRS PRN IV NAUSEA/VOMITING; Start 01/08/17 at 19:15; Stop 01/08/17 at 19:25; Status DC Fentanyl Citrate (Fentanyl 2ml Vial) 50 mcg PRN Q2HR PRN IV PAIN Last administered on 01/09/17 04:22; Start 01/08/17 at 19:15; Stop 01/09/17 at 19:14 ; Status DC Acetaminophen (Tylenol) 650 mg PRN Q4HRS PRN PO FEVER; Start 01/08/17 at 19:15 ; Stop 01/09/17 at 19:14; Status DC Nitroglycerin (Nitrostat) 0.4 mg PRN Q5MIN PRN SL CHEST PAIN; Start 01/08/17 at 19:15; Stop 01/09/17 at 19:14; Status DC Ondansetron HCl (Zofran) 4 mg PRN Q6HRS PRN IV NAUSEA/VOMITING Last administered on 01/09/17 07:22; Start 01/08/17 at 19:30; Stop 01/09/17 at 19:29 ; Status DC Cyclobenzaprine HCl (Flexeril) 10 mg TID PO Last administered on 01/09/17 09: 23; Start 01/08/17 at 21:00; Stop 01/09/17 at 11:12; Status DC Ibuprofen (Motrin) 600 mg TID PO Last administered on 01/09/17 09:24; Start at 21:00; Stop 01/09/17 at 11:12; Status DC Lidocaine (Lidoderm) 1 patch DAILY TD Last administered on 01/10/17 09:06; Start 01/08/17 at 19:30 Ondansetron HCl (Zofran) 4 mg PRN Q6HRS PRN IV NAUSEA/VOMITING; Start 01/08/17 at 19:30; Stop 01/09/17 at 19:29; Status UNV Enoxaparin Sodium (Lovenox 40mg Syringe) 40 mg Q24H SQ Last administered on 09:24; Start 01/09/17 at 09:00; Stop 01/09/17 at 10:55; Status DC Polyethylene Glycol (miraLAX PACKET) 17 gm DAILY PO Last administered on 09:03; Start 01/09/17 at 09:30 Magnesium Hydroxide (Milk Of Magnesia) 2,400 mg PRN DAILY PRN PO CONSTIPATION Last administered on 01/09/17 09:22; Start 01/09/17 at 09:00 Heparin Sodium (Porcine) (Heparin Sq) 5,000 unit Q8HRS SQ ; Start 01/09/17 at 14 :00; Stop 01/09/17 at 14:00; Status DC Cyclobenzaprine HCl (Flexeril) 10 mg PRN Q6HRS PRN PO MUSCLE SPASMS Last administered on 01/10/17 09:17; Start 01/10/17 at 09:00 Methylprednisolone (Medrol) 8 mg BID PO Last administered on 01/09/17 21:06; Start 01/09/17 at 11:30; Stop 01/09/17 at 21:01; Status DC Methylprednisolone (Medrol) 4 mg BIDPCLD PO Last administered on 01/09/17 18: 30; Start 01/09/17 at 12:30; Stop 01/09/17 at 17:31; Status DC Methylprednisolone (Medrol) 4 mg TIDPC PO Last administered on 01/10/17 09:05 ; Start 01/10/17 at 08:30; Stop 01/10/17 at 17:31 Methylprednisolone (Medrol) 8 mg QHS PO ; Start 01/10/17 at 21:00; Stop at 21:01 Methylprednisolone (Medrol) 4 mg QIDAFTMEAL PO ; Start 01/11/17 at 09:00; Stop 01/11/17 at 21:01 Methylprednisolone (Medrol) 4 mg TID PO ; Start 01/12/17 at 09:00; Stop at 21:01 Methylprednisolone (Medrol) 4 mg BID PO ; Start 01/13/17 at 09:00; Stop at 21:01 Methylprednisolone (Medrol) 4 mg DAILY PO ; Start 01/14/17 at 09:00; Stop at 09:01 Pantoprazole Sodium (Protonix) 40 mg DAILYAC PO Last administered on 01/10/17 09:05; Start 01/09/17 at 11:30 Acetaminophen/ Hydrocodone Bitart (Lortab 10/325) 1 tab PRN Q6HRS PRN PO PAIN Last administered on 01/10/17 06:47; Start 01/09/17 at 11:15 Bisacodyl (Dulcolax Supp) 10 mg PRN DAILY PRN [place] CONSTIPATION; Start 01/09/17 at 11:30 Bisacodyl (Dulcolax Tab) 10 mg DAILY PO Last administered on 01/09/17 12:55; Start 01/09/17 at 12:00 Magnesium Citrate (Citroma) 296 ml PRN 1X PRN PO CONSTIPATION Last administered on 01/09/17 15:41; Start 01/09/17 at 11:30 Apixaban (Eliquis) 5 mg BID PO Last administered on 01/10/17 09:04; Start at 14:30 Diltiazem HCl (Cardizem 24hr Cd) 120 mg DAILY PO Last administered on 09:05; Start 01/09/17 at 14:30 Info (Anti-Coagulation Monitoring By Pharmacy) 1 each PRN DAILY PRN MC SEE COMMENTS Last administered on 01/10/17 11:10; Start 01/09/17 at 14:00 Simvastatin (Zocor) 40 mg QHS PO Last administered on 01/09/17 21:06; Start at 21:00 Losartan Potassium (Cozaar) 100 mg DAILY PO Last administered on 01/10/17 09: 04; Start 01/10/17 at 09:00 Sertraline HCl (Zoloft) 100 mg DAILY PO Last administered on 01/10/17 09:03; Start 01/10/17 at 09:00 Hydrochlorothiazide (Hydrodiuril) 25 mg DAILY PO Last administered on 09:05; Start 01/10/17 at 09:00 Sertraline HCl (Zoloft) 100 mg 1X ONCE PO Last administered on 01/09/17 21:07 ; Start 01/09/17 at 21:00; Stop 01/09/17 at 21:01; Status DC Active Scripts Active Reported Colace (Docusate Sodium) 100 Mg Capsule 100 Mg PO BID PRN Hydrocodone-Apap 5-325 (Hydrocodone Bit/Acetaminophen) 1 Each Tablet 1 Tab PO PRN Q6HRS PRN Cyclobenzaprine Hcl 10 Mg Tablet 1 Tab PO TID Ibuprofen 600 Mg Tablet 600 Mg PO PRN Q6HRS PRN Simvastatin 40 Mg Tablet 1 Tab PO QHS Losartan-Hctz 100-25 Mg Tab (Losartan/Hydrochlorothiazide) 1 Each Tablet 1 Tab PO DAILY Zoloft (Sertraline Hcl) 100 Mg Tablet 1 Tab PO DAILY Vitals/I & O Vital Sign - Last 24 Hours 01/09/17 01/09/17 01/09/17 01/09/17 12:56 15:00 15:39 19:28 Temp 97.8 97.8 Pulse 92 94 Resp 18 16 B/P (MAP) 164/84 (110) 164/84 Pulse Ox 93 O2 Delivery Nasal Cannula Nasal Cannula Room Air O2 Flow Rate 2.0 2.0 01/09/17 01/09/17 01/09/17 01/09/17 19:55 21:07 22:15 23:48 Temp 98.0 97.5 98.0 97.5 Pulse 100 108 Resp 16 16 16 B/P (MAP) 150/94 (112) 154/70 (98) Pulse Ox 92 96 O2 Delivery Room Air Room Air Room Air Nasal Cannula O2 Flow Rate 2.0 01/10/17 01/10/17 01/10/17 01/10/17 03:55 06:47 07:00 08:00 Temp 97.9 97.6 97.9 97.6 Pulse 94 88 Resp 16 18 18 B/P (MAP) 128/78 (95) 121/76 (91) Pulse Ox 94 92 O2 Delivery Nasal Cannula Nasal Cannula Nasal Cannula O2 Flow Rate 2.0 2.0 2.0 01/10/17 01/10/17 01/10/17 09:04 09:05 11:00 Temp 97.4 97.4 Pulse 99 90 91 Resp 18 B/P (MAP) 121/76 121/76 152/76 (101) Pulse Ox 94 O2 Delivery Nasal Cannula O2 Flow Rate 2.0 Intake and Output 01/10/17 01/10/17 01/11/17 15:00 23:00 07:00 Intake Total 250 ml Balance 250 ml RAMANDEEP BABCOCK MD Jan 10, 2017 12:10
[2017-01-10 15:01] VITALS: BP 138/78
[2017-01-10 19:27] VITALS: BP 135/83
[2017-01-10] MEDS: SIMVASTATIN 40 MG TABLET. PO SCH (20:46)
[2017-01-10] MEDS ORDERED: methylPREDNISolone 4 MG TABLET. PO SCH (21:00)
[2017-01-10 22:42] VITALS: BP 142/92
[2017-01-11 03:51] VITALS: BP 111/70
[2017-01-11] MEDS: ANTI-COAG MONITOR BY PHARMACY. MC PRN (08:49)
[2017-01-11] MEDS: PANTOPRAZOLE 40 MG TABLET.DR. PO SCH (08:53)
[2017-01-11] MEDS: SERTRALINE 50 MG TABLET. PO SCH (08:54)
[2017-01-11] MEDS: HYDROcodone/APAP 10/325 1 TAB TABLET PO PRN ×4 (08:56→22:55)
[2017-01-11] MEDS: LIDOCAINE (700MG/PATCH) PATCH. TD SCH (08:59)
[2017-01-11] MEDS: BISACODYL 5 MG TABLET.DR. PO SCH ×2 (09:00→16:49)
[2017-01-11] MEDS: LOSARTAN POTASSIUM 50 MG TABLET. PO SCH (09:00)
[2017-01-11] MEDS: APIXABAN 5 MG TABLET. PO SCH (09:00)
[2017-01-11] MEDS: methylPREDNISolone 4 MG TABLET. PO SCH ×4 (09:00→22:51)
[2017-01-11] MEDS: POLYETHYLENE GLYCOL 3350 17 GM PACKET. PO SCH ×2 (09:00→16:49)
--- NOTE | 2017-01-11 09:59 | PDOC ---
PROGRESS NOTES Subjective Subjective She continues with low back pain with radiation to right lower extremity. 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 Plan Plan of Care To ask for neurosurgical advises and to ask IR to see for consideration of L1 kyphoplasty. Comment Review of Relevant I have reviewed the following items peter (where applicable) has been applied. Medications Current Medications Hydromorphone HCl (Dilaudid) 1 mg 1X ONCE IV Last administered on 01/08/17 18 :56; Start 01/08/17 at 18:15; Stop 01/08/17 at 18:16; Status DC Ondansetron HCl (Zofran) 4 mg 1X ONCE IV Last administered on 01/08/17 18:55 ; Start 01/08/17 at 18:15; Stop 01/08/17 at 18:16; Status DC Sodium Chloride 1,000 ml @ 1,000 mls/hr 1X ONCE IV Last administered on 18:52; Start 01/08/17 at 18:15; Stop 01/08/17 at 19:14; Status DC Diltiazem HCl 125 mg/Dextrose 125 ml @ 0 mls/hr CONT PRN IV SEE I/O RECORD Last administered on 01/09/17 06:14; Start 01/08/17 at 18:15 Diltiazem HCl (Cardizem) 10 mg 1X ONCE IVP Last administered on 01/08/17 18: 53; Start 01/08/17 at 18:15; Stop 01/08/17 at 18:16; Status DC Ondansetron HCl (Zofran) 4 mg PRN Q8HRS PRN IV NAUSEA/VOMITING; Start 01/08/17 at 19:15; Stop 01/08/17 at 19:25; Status DC Fentanyl Citrate (Fentanyl 2ml Vial) 50 mcg PRN Q2HR PRN IV PAIN Last administered on 01/09/17 04:22; Start 01/08/17 at 19:15; Stop 01/09/17 at 19:14 ; Status DC Acetaminophen (Tylenol) 650 mg PRN Q4HRS PRN PO FEVER; Start 01/08/17 at 19:15 ; Stop 01/09/17 at 19:14; Status DC Nitroglycerin (Nitrostat) 0.4 mg PRN Q5MIN PRN SL CHEST PAIN; Start 01/08/17 at 19:15; Stop 01/09/17 at 19:14; Status DC Ondansetron HCl (Zofran) 4 mg PRN Q6HRS PRN IV NAUSEA/VOMITING Last administered on 01/09/17 07:22; Start 01/08/17 at 19:30; Stop 01/09/17 at 19:29 ; Status DC Cyclobenzaprine HCl (Flexeril) 10 mg TID PO Last administered on 01/09/17 09: 23; Start 01/08/17 at 21:00; Stop 01/09/17 at 11:12; Status DC Ibuprofen (Motrin) 600 mg TID PO Last administered on 01/09/17 09:24; Start at 21:00; Stop 01/09/17 at 11:12; Status DC Lidocaine (Lidoderm) 1 patch DAILY TD Last administered on 01/11/17 08:59; Start 01/08/17 at 19:30 Ondansetron HCl (Zofran) 4 mg PRN Q6HRS PRN IV NAUSEA/VOMITING; Start 01/08/17 at 19:30; Stop 01/09/17 at 19:29; Status UNV Enoxaparin Sodium (Lovenox 40mg Syringe) 40 mg Q24H SQ Last administered on 09:24; Start 01/09/17 at 09:00; Stop 01/09/17 at 10:55; Status DC Polyethylene Glycol (miraLAX PACKET) 17 gm DAILY PO Last administered on 09:03; Start 01/09/17 at 09:30 Magnesium Hydroxide (Milk Of Magnesia) 2,400 mg PRN DAILY PRN PO CONSTIPATION Last administered on 01/09/17 09:22; Start 01/09/17 at 09:00 Heparin Sodium (Porcine) (Heparin Sq) 5,000 unit Q8HRS SQ ; Start 01/09/17 at 14 :00; Stop 01/09/17 at 14:00; Status DC Cyclobenzaprine HCl (Flexeril) 10 mg PRN Q6HRS PRN PO MUSCLE SPASMS Last administered on 01/10/17 20:54; Start 01/10/17 at 09:00 Methylprednisolone (Medrol) 8 mg BID PO Last administered on 01/09/17 21:06; Start 01/09/17 at 11:30; Stop 01/09/17 at 21:01; Status DC Methylprednisolone (Medrol) 4 mg BIDPCLD PO Last administered on 01/09/17 18: 30; Start 01/09/17 at 12:30; Stop 01/09/17 at 17:31; Status DC Methylprednisolone (Medrol) 4 mg TIDPC PO Last administered on 01/10/17 18:27 ; Start 01/10/17 at 08:30; Stop 01/10/17 at 17:31; Status DC Methylprednisolone (Medrol) 8 mg QHS PO Last administered on 01/10/17 20:46; Start 01/10/17 at 21:00; Stop 01/10/17 at 21:01; Status DC Methylprednisolone (Medrol) 4 mg QIDAFTMEAL PO Last administered on 01/11/17 09:00; Start 01/11/17 at 09:00; Stop 01/11/17 at 21:01 Methylprednisolone (Medrol) 4 mg TID PO ; Start 01/12/17 at 09:00; Stop at 21:01 Methylprednisolone (Medrol) 4 mg BID PO ; Start 01/13/17 at 09:00; Stop at 21:01 Methylprednisolone (Medrol) 4 mg DAILY PO ; Start 01/14/17 at 09:00; Stop at 09:01 Pantoprazole Sodium (Protonix) 40 mg DAILYAC PO Last administered on 01/11/17 08:53; Start 01/09/17 at 11:30 Acetaminophen/ Hydrocodone Bitart (Lortab 10/325) 1 tab PRN Q6HRS PRN PO PAIN Last administered on 01/10/17 06:47; Start 01/09/17 at 11:15; Stop 01/10/17 at 12:09; Status DC Bisacodyl (Dulcolax Supp) 10 mg PRN DAILY PRN [place] CONSTIPATION; Start 01/09/17 at 11:30 Bisacodyl (Dulcolax Tab) 10 mg DAILY PO Last administered on 01/09/17 12:55; Start 01/09/17 at 12:00 Magnesium Citrate (Citroma) 296 ml PRN 1X PRN PO CONSTIPATION Last administered on 01/09/17 15:41; Start 01/09/17 at 11:30 Apixaban (Eliquis) 5 mg BID PO Last administered on 01/11/17 09:00; Start at 14:30 Diltiazem HCl (Cardizem 24hr Cd) 120 mg DAILY PO Last administered on 08:59; Start 01/09/17 at 14:30 Info (Anti-Coagulation Monitoring By Pharmacy) 1 each PRN DAILY PRN MC SEE COMMENTS Last administered on 01/11/17 08:49; Start 01/09/17 at 14:00 Simvastatin (Zocor) 40 mg QHS PO Last administered on 01/10/17 20:46; Start at 21:00 Losartan Potassium (Cozaar) 100 mg DAILY PO Last administered on 01/11/17 09: 00; Start 01/10/17 at 09:00 Sertraline HCl (Zoloft) 100 mg DAILY PO Last administered on 01/11/17 08:54; Start 01/10/17 at 09:00 Hydrochlorothiazide (Hydrodiuril) 25 mg DAILY PO Last administered on 09:05; Start 01/10/17 at 09:00 Sertraline HCl (Zoloft) 100 mg 1X ONCE PO Last administered on 01/09/17 21:07 ; Start 01/09/17 at 21:00; Stop 01/09/17 at 21:01; Status DC Acetaminophen/ Hydrocodone Bitart (Lortab 10/325) 1 tab PRN Q4HRS PRN PO PAIN Last administered on 01/11/17 08:56; Start 01/10/17 at 12:15 Active Scripts Active Reported Colace (Docusate Sodium) 100 Mg Capsule 100 Mg PO BID PRN Hydrocodone-Apap 5-325 (Hydrocodone Bit/Acetaminophen) 1 Each Tablet 1 Tab PO PRN Q6HRS PRN Cyclobenzaprine Hcl 10 Mg Tablet 1 Tab PO TID Ibuprofen 600 Mg Tablet 600 Mg PO PRN Q6HRS PRN Simvastatin 40 Mg Tablet 1 Tab PO QHS Losartan-Hctz 100-25 Mg Tab (Losartan/Hydrochlorothiazide) 1 Each Tablet 1 Tab PO DAILY Zoloft (Sertraline Hcl) 100 Mg Tablet 1 Tab PO DAILY Vitals/I & O Vital Sign - Last 24 Hours 01/10/17 01/10/17 01/10/17 01/10/17 11:00 12:29 13:29 15:01 Temp 97.4 97.5 97.4 97.5 Pulse 91 94 Resp 18 18 16 18 B/P (MAP) 152/76 (101) 138/78 (98) Pulse Ox 94 92 O2 Delivery Nasal Cannula Room Air Nasal Cannula Nasal Cannula O2 Flow Rate 2.0 2.0 2.0 01/10/17 01/10/17 01/10/17 01/10/17 18:28 19:27 20:40 22:30 Temp 98.2 98.2 Pulse 94 Resp 18 16 B/P (MAP) 135/83 (100) Pulse Ox 93 O2 Delivery Nasal Cannula Nasal Cannula Nasal Cannula Room Air O2 Flow Rate 2.0 2.0 2.0 01/10/17 01/11/17 01/11/17 01/11/17 22:42 03:51 08:56 08:59 Temp 98.1 97.5 98.1 97.5 Pulse 90 91 101 Resp 18 18 B/P (MAP) 142/92 (109) 111/70 (84) 124/76 Pulse Ox 91 93 O2 Delivery Nasal Cannula Nasal Cannula Room Air O2 Flow Rate 2.0 2.0 01/11/17 09:00 Pulse 101 B/P (MAP) 124/76 LOYDA ELLER MD Jan 11, 2017 09:59
[2017-01-11] MEDS: hydroCHLOROthiazide 25 MG TABLET PO SCH (10:34)
[2017-01-11] MEDS ORDERED: ASPIRIN ENTERIC COATED 325 MG TABLET.DR. PO ONE (10:45)
--- NOTE | 2017-01-11 10:45 | PDOC ---
DANAY JHAVERI COLOR WEIGHER 01/11/17 1045: CARDIO Progress Notes Date and Time Date of Service 01/11/2017 Time of Evaluation 0950 Subjective Subjective: No Chest Pain, No shortness of breath, No Palpitations, Other Vitals Vitals Vital Signs Date Time Temp Pulse Resp B/P (MAP) Pulse Ox O2 Delivery O2 Flow Rate FiO2 01/11/17 09:56 Room Air 01/11/17 09:00 101 124/76 01/11/17 03:51 97.5 18 93 2.0 97.5 Weight Weight [ ] Physical Exam HEENT: Neck Supple W Full Motion Chest: Symmetric LUNGS: Clear to Auscultation Heart: S1S2, no thrills, irregularly irregular Abdomen: Soft N/T Extremities: No Calf Tenderness Neurology: alert, oriented, follow commands Assessment Assessment 1. New onset atrial fibrillation; remains on AFIB, rate 90-120 2. Morbid obesity 3. intractable back pain: pain remains but better at supine position Recommendations 1. Kyphoplasty being planned 2. Will hold Eliquis and will start on ASA for the meantime. 3. Will restart eliquis and proceed with MCKAYLA/CVN 24-48 post kyphoplasty. 4. TTE today. Will decrease losartan with anticipation to increase cardizem SERENITY RICO MD 01/12/17 0054: CARDIO Progress Notes Plan Plan Late entry for 01/11 Pt. seen and examined. Plans changed as noted above. Supportive care till wed, plan for MCKAYLA/CVN then Thanks will follow. DANAY JHAVERI APRN Jan 11, 2017 10:45 SERENITY RICO MD Jan 12, 2017 00:54
--- NOTE | 2017-01-11 10:53 | PDOC ---
PROGRESS NOTES Chief Complaint Chief Complaint 1. New atrial fib/flutter RVR 2. Obesity BMI 36 3. Recent fall with back injury 4. Acute back pain no resolve with PO pain meds 5. HTN, dyslipidemia - chronic stable 6. Ex smoker - quit 30 yrs ago 7. Disc Bulge 2, L2 compression fx L1, recent - recent fall History of Present Illness History of Present Illness Neurosx has evaluated her and now plans kypholasty\But got eliquis Hence kyphoplasty planned for , then electrical cardioversion on wed BAck pain persists PLAN: Kyphoplasty melany Cardioversion electrical on wed Will go home on eliquis and rate controlling agents and pain meds with ff up NEurosx and cards as OP Vitals Vitals Vital Signs Date Time Temp Pulse Resp B/P (MAP) Pulse Ox O2 Delivery O2 Flow Rate FiO2 01/11/17 09:56 Room Air 01/11/17 09:00 101 124/76 01/11/17 03:51 97.5 18 93 2.0 97.5 Physical Exam General: Alert, Oriented X3, Cooperative, No acute distress Heart: Regular rate Lungs: Clear Abdomen: Normal bowel sounds, Soft, No tenderness, No hepatosplenomegaly, No masses Extremities: No clubbing, No cyanosis, No edema, Normal pulses, No tenderness/ swelling Skin: No rashes, No breakdown, No significant lesion Review of Systems Review of Systems back apin Comment Review of Relevant I have reviewed the following items peter (where applicable) has been applied. Medications Current Medications Hydromorphone HCl (Dilaudid) 1 mg 1X ONCE IV Last administered on 01/08/17 18 :56; Start 01/08/17 at 18:15; Stop 01/08/17 at 18:16; Status DC Ondansetron HCl (Zofran) 4 mg 1X ONCE IV Last administered on 01/08/17 18:55 ; Start 01/08/17 at 18:15; Stop 01/08/17 at 18:16; Status DC Sodium Chloride 1,000 ml @ 1,000 mls/hr 1X ONCE IV Last administered on 18:52; Start 01/08/17 at 18:15; Stop 01/08/17 at 19:14; Status DC Diltiazem HCl 125 mg/Dextrose 125 ml @ 0 mls/hr CONT PRN IV SEE I/O RECORD Last administered on 01/09/17 06:14; Start 01/08/17 at 18:15; Stop 01/11/17 at 10:43; Status DC Diltiazem HCl (Cardizem) 10 mg 1X ONCE IVP Last administered on 01/08/17 18: 53; Start 01/08/17 at 18:15; Stop 01/08/17 at 18:16; Status DC Ondansetron HCl (Zofran) 4 mg PRN Q8HRS PRN IV NAUSEA/VOMITING; Start 01/08/17 at 19:15; Stop 01/08/17 at 19:25; Status DC Fentanyl Citrate (Fentanyl 2ml Vial) 50 mcg PRN Q2HR PRN IV PAIN Last administered on 01/09/17 04:22; Start 01/08/17 at 19:15; Stop 01/09/17 at 19:14 ; Status DC Acetaminophen (Tylenol) 650 mg PRN Q4HRS PRN PO FEVER; Start 01/08/17 at 19:15 ; Stop 01/09/17 at 19:14; Status DC Nitroglycerin (Nitrostat) 0.4 mg PRN Q5MIN PRN SL CHEST PAIN; Start 01/08/17 at 19:15; Stop 01/09/17 at 19:14; Status DC Ondansetron HCl (Zofran) 4 mg PRN Q6HRS PRN IV NAUSEA/VOMITING Last administered on 01/09/17 07:22; Start 01/08/17 at 19:30; Stop 01/09/17 at 19:29 ; Status DC Cyclobenzaprine HCl (Flexeril) 10 mg TID PO Last administered on 01/09/17 09: 23; Start 01/08/17 at 21:00; Stop 01/09/17 at 11:12; Status DC Ibuprofen (Motrin) 600 mg TID PO Last administered on 01/09/17 09:24; Start at 21:00; Stop 01/09/17 at 11:12; Status DC Lidocaine (Lidoderm) 1 patch DAILY TD Last administered on 01/11/17 08:59; Start 01/08/17 at 19:30 Ondansetron HCl (Zofran) 4 mg PRN Q6HRS PRN IV NAUSEA/VOMITING; Start 01/08/17 at 19:30; Stop 01/09/17 at 19:29; Status UNV Enoxaparin Sodium (Lovenox 40mg Syringe) 40 mg Q24H SQ Last administered on 09:24; Start 01/09/17 at 09:00; Stop 01/09/17 at 10:55; Status DC Polyethylene Glycol (miraLAX PACKET) 17 gm DAILY PO Last administered on 09:03; Start 01/09/17 at 09:30 Magnesium Hydroxide (Milk Of Magnesia) 2,400 mg PRN DAILY PRN PO CONSTIPATION Last administered on 01/09/17 09:22; Start 01/09/17 at 09:00 Heparin Sodium (Porcine) (Heparin Sq) 5,000 unit Q8HRS SQ ; Start 01/09/17 at 14 :00; Stop 01/09/17 at 14:00; Status DC Cyclobenzaprine HCl (Flexeril) 10 mg PRN Q6HRS PRN PO MUSCLE SPASMS Last administered on 01/10/17 20:54; Start 01/10/17 at 09:00 Methylprednisolone (Medrol) 8 mg BID PO Last administered on 01/09/17 21:06; Start 01/09/17 at 11:30; Stop 01/09/17 at 21:01; Status DC Methylprednisolone (Medrol) 4 mg BIDPCLD PO Last administered on 01/09/17 18: 30; Start 01/09/17 at 12:30; Stop 01/09/17 at 17:31; Status DC Methylprednisolone (Medrol) 4 mg TIDPC PO Last administered on 01/10/17 18:27 ; Start 01/10/17 at 08:30; Stop 01/10/17 at 17:31; Status DC Methylprednisolone (Medrol) 8 mg QHS PO Last administered on 01/10/17 20:46; Start 01/10/17 at 21:00; Stop 01/10/17 at 21:01; Status DC Methylprednisolone (Medrol) 4 mg QIDAFTMEAL PO Last administered on 01/11/17 09:00; Start 01/11/17 at 09:00; Stop 01/11/17 at 21:01 Methylprednisolone (Medrol) 4 mg TID PO ; Start 01/12/17 at 09:00; Stop at 21:01 Methylprednisolone (Medrol) 4 mg BID PO ; Start 01/13/17 at 09:00; Stop at 21:01 Methylprednisolone (Medrol) 4 mg DAILY PO ; Start 01/14/17 at 09:00; Stop at 09:01 Pantoprazole Sodium (Protonix) 40 mg DAILYAC PO Last administered on 01/11/17 08:53; Start 01/09/17 at 11:30 Acetaminophen/ Hydrocodone Bitart (Lortab 10/325) 1 tab PRN Q6HRS PRN PO PAIN Last administered on 01/10/17 06:47; Start 01/09/17 at 11:15; Stop 01/10/17 at 12:09; Status DC Bisacodyl (Dulcolax Supp) 10 mg PRN DAILY PRN [place] CONSTIPATION; Start 01/09/17 at 11:30 Bisacodyl (Dulcolax Tab) 10 mg DAILY PO Last administered on 01/09/17 12:55; Start 01/09/17 at 12:00 Magnesium Citrate (Citroma) 296 ml PRN 1X PRN PO CONSTIPATION Last administered on 01/09/17 15:41; Start 01/09/17 at 11:30 Apixaban (Eliquis) 5 mg BID PO Last administered on 01/11/17 09:00; Start at 14:30; Stop 01/11/17 at 10:38; Status DC Diltiazem HCl (Cardizem 24hr Cd) 120 mg DAILY PO Last administered on 08:59; Start 01/09/17 at 14:30; Stop 01/11/17 at 10:43; Status DC Info (Anti-Coagulation Monitoring By Pharmacy) 1 each PRN DAILY PRN MC SEE COMMENTS Last administered on 01/11/17 08:49; Start 01/09/17 at 14:00 Simvastatin (Zocor) 40 mg QHS PO Last administered on 01/10/17 20:46; Start at 21:00; Stop 01/11/17 at 10:45; Status DC Losartan Potassium (Cozaar) 100 mg DAILY PO Last administered on 01/11/17 09: 00; Start 01/10/17 at 09:00; Stop 01/11/17 at 10:43; Status DC Sertraline HCl (Zoloft) 100 mg DAILY PO Last administered on 01/11/17 08:54; Start 01/10/17 at 09:00 Hydrochlorothiazide (Hydrodiuril) 25 mg DAILY PO Last administered on 10:34; Start 01/10/17 at 09:00 Sertraline HCl (Zoloft) 100 mg 1X ONCE PO Last administered on 01/09/17 21:07 ; Start 01/09/17 at 21:00; Stop 01/09/17 at 21:01; Status DC Acetaminophen/ Hydrocodone Bitart (Lortab 10/325) 1 tab PRN Q4HRS PRN PO PAIN Last administered on 01/11/17 08:56; Start 01/10/17 at 12:15 Aspirin (Ecotrin) 325 mg 1X ONCE PO ; Start 01/11/17 at 10:45; Stop 01/11/17 at 10:46; Status DC Diltiazem HCl (Cardizem 24hr Cd) 240 mg DAILY PO ; Start 01/12/17 at 09:00 Losartan Potassium (Cozaar) 50 mg DAILY PO ; Start 01/12/17 at 09:00 Atorvastatin Calcium (Lipitor) 20 mg QHS PO ; Start 01/11/17 at 21:00 Active Scripts Active Reported Colace (Docusate Sodium) 100 Mg Capsule 100 Mg PO BID PRN Hydrocodone-Apap 5-325 (Hydrocodone Bit/Acetaminophen) 1 Each Tablet 1 Tab PO PRN Q6HRS PRN Cyclobenzaprine Hcl 10 Mg Tablet 1 Tab PO TID Ibuprofen 600 Mg Tablet 600 Mg PO PRN Q6HRS PRN Simvastatin 40 Mg Tablet 1 Tab PO QHS Losartan-Hctz 100-25 Mg Tab (Losartan/Hydrochlorothiazide) 1 Each Tablet 1 Tab PO DAILY Zoloft (Sertraline Hcl) 100 Mg Tablet 1 Tab PO DAILY Vitals/I & O Vital Sign - Last 24 Hours 01/10/17 01/10/17 01/10/17 01/10/17 11:00 12:29 13:29 15:01 Temp 97.4 97.5 97.4 97.5 Pulse 91 94 Resp 18 18 16 18 B/P (MAP) 152/76 (101) 138/78 (98) Pulse Ox 94 92 O2 Delivery Nasal Cannula Room Air Nasal Cannula O2 Flow Rate 2.0 2.0 2.0 01/10/17 01/10/17 01/10/17 01/10/17 18:28 19:27 20:40 22:30 Temp 98.2 98.2 Pulse 94 Resp 18 16 B/P (MAP) 135/83 (100) Pulse Ox 93 O2 Delivery Nasal Cannula Nasal Cannula Nasal Cannula Room Air O2 Flow Rate 2.0 2.0 2.0 01/10/17 01/11/17 01/11/17 01/11/17 22:42 03:51 08:56 08:59 Temp 98.1 97.5 98.1 97.5 Pulse 90 91 101 Resp 18 18 B/P (MAP) 142/92 (109) 111/70 (84) 124/76 Pulse Ox 91 93 O2 Delivery Nasal Cannula Nasal Cannula Room Air O2 Flow Rate 2.0 2.0 01/11/17 01/11/17 09:00 09:56 Pulse 101 B/P (MAP) 124/76 O2 Delivery Room Air RAMANDEEP BABCOCK MD Jan 11, 2017 10:53
[2017-01-11 11:00] VITALS: BP 130/76
[2017-01-11] MEDS: CYCLOBENZAPRINE 10 MG TABLET. PO PRN ×2 (11:34→22:55)
--- NOTE | 2017-01-11 11:34 | PDOC ---
Provider Note Provider Note patient seen and examined L1 compression fx, s/p fall a fib neuro intact Dr. Davis following agree with kyphoplasty Full consult to follow MARY THACKER MD Jan 11, 2017 11:34
[2017-01-11 15:00] VITALS: BP 125/66
[2017-01-11 16:21] VITALS: BP 125/66
[2017-01-11 19:00] VITALS: BP 125/84
[2017-01-11] MEDS ORDERED: MORPHINE SULFATE 4 MG/ML DISP.SYRIN. IV PRN (20:15)
[2017-01-11] MEDS: ATORVASTATIN CALCIUM 20 MG TABLET PO SCH (20:56)
[2017-01-11 22:49] VITALS: BP 138/81
[2017-01-12] VITALS (12 sets, daily range): BP systolic 136–156; BP diastolic 69–97
[2017-01-12] MEDS: PANTOPRAZOLE 40 MG TABLET.DR. PO SCH (07:30)
[2017-01-12] MEDS: SERTRALINE 50 MG TABLET. PO SCH (08:36)
[2017-01-12] MEDS: LOSARTAN POTASSIUM 50 MG TABLET. PO SCH (08:36)
[2017-01-12] MEDS: hydroCHLOROthiazide 25 MG TABLET PO SCH (08:36)
[2017-01-12] MEDS: methylPREDNISolone 4 MG TABLET. PO SCH ×3 (08:36→21:28)
[2017-01-12] MEDS: LIDOCAINE (700MG/PATCH) PATCH. TD SCH (08:37)
--- NOTE | 2017-01-12 09:43 | PDOC ---
PROGRESS NOTES Subjective Subjective She admits continued low back pain but some help with lumbar corset. Objective Objective Vital Signs Date Time Temp Pulse Resp B/P (MAP) Pulse Ox O2 Delivery O2 Flow Rate FiO2 01/12/17 08:36 126 142/97 01/12/17 07:00 98.2 19 94 Nasal Cannula 2.0 98.2 Physical Exam Physical Exam She is supine in bed and alert and waiting for kyphoplasty later on today. Plan Plan of Care To get her up as tolerated after kyphoplasty. Comment Review of Relevant I have reviewed the following items peter (where applicable) has been applied. Medications Current Medications Hydromorphone HCl (Dilaudid) 1 mg 1X ONCE IV Last administered on 01/08/17 18 :56; Start 01/08/17 at 18:15; Stop 01/08/17 at 18:16; Status DC Ondansetron HCl (Zofran) 4 mg 1X ONCE IV Last administered on 01/08/17 18:55 ; Start 01/08/17 at 18:15; Stop 01/08/17 at 18:16; Status DC Sodium Chloride 1,000 ml @ 1,000 mls/hr 1X ONCE IV Last administered on 18:52; Start 01/08/17 at 18:15; Stop 01/08/17 at 19:14; Status DC Diltiazem HCl 125 mg/Dextrose 125 ml @ 0 mls/hr CONT PRN IV SEE I/O RECORD Last administered on 01/09/17 06:14; Start 01/08/17 at 18:15; Stop 01/11/17 at 10:43; Status DC Diltiazem HCl (Cardizem) 10 mg 1X ONCE IVP Last administered on 01/08/17 18: 53; Start 01/08/17 at 18:15; Stop 01/08/17 at 18:16; Status DC Ondansetron HCl (Zofran) 4 mg PRN Q8HRS PRN IV NAUSEA/VOMITING; Start 01/08/17 at 19:15; Stop 01/08/17 at 19:25; Status DC Fentanyl Citrate (Fentanyl 2ml Vial) 50 mcg PRN Q2HR PRN IV PAIN Last administered on 01/09/17 04:22; Start 01/08/17 at 19:15; Stop 01/09/17 at 19:14 ; Status DC Acetaminophen (Tylenol) 650 mg PRN Q4HRS PRN PO FEVER; Start 01/08/17 at 19:15 ; Stop 01/09/17 at 19:14; Status DC Nitroglycerin (Nitrostat) 0.4 mg PRN Q5MIN PRN SL CHEST PAIN; Start 01/08/17 at 19:15; Stop 01/09/17 at 19:14; Status DC Ondansetron HCl (Zofran) 4 mg PRN Q6HRS PRN IV NAUSEA/VOMITING Last administered on 01/09/17 07:22; Start 01/08/17 at 19:30; Stop 01/09/17 at 19:29 ; Status DC Cyclobenzaprine HCl (Flexeril) 10 mg TID PO Last administered on 01/09/17 09: 23; Start 01/08/17 at 21:00; Stop 01/09/17 at 11:12; Status DC Ibuprofen (Motrin) 600 mg TID PO Last administered on 01/09/17 09:24; Start at 21:00; Stop 01/09/17 at 11:12; Status DC Lidocaine (Lidoderm) 1 patch DAILY TD Last administered on 01/11/17 08:59; Start 01/08/17 at 19:30 Ondansetron HCl (Zofran) 4 mg PRN Q6HRS PRN IV NAUSEA/VOMITING; Start 01/08/17 at 19:30; Stop 01/09/17 at 19:29; Status UNV Enoxaparin Sodium (Lovenox 40mg Syringe) 40 mg Q24H SQ Last administered on 09:24; Start 01/09/17 at 09:00; Stop 01/09/17 at 10:55; Status DC Polyethylene Glycol (miraLAX PACKET) 17 gm DAILY PO Last administered on 16:49; Start 01/09/17 at 09:30 Magnesium Hydroxide (Milk Of Magnesia) 2,400 mg PRN DAILY PRN PO CONSTIPATION Last administered on 01/09/17 09:22; Start 01/09/17 at 09:00 Heparin Sodium (Porcine) (Heparin Sq) 5,000 unit Q8HRS SQ ; Start 01/09/17 at 14 :00; Stop 01/09/17 at 14:00; Status DC Cyclobenzaprine HCl (Flexeril) 10 mg PRN Q6HRS PRN PO MUSCLE SPASMS Last administered on 01/11/17 22:55; Start 01/10/17 at 09:00 Methylprednisolone (Medrol) 8 mg BID PO Last administered on 01/09/17 21:06; Start 01/09/17 at 11:30; Stop 01/09/17 at 21:01; Status DC Methylprednisolone (Medrol) 4 mg BIDPCLD PO Last administered on 01/09/17 18: 30; Start 01/09/17 at 12:30; Stop 01/09/17 at 17:31; Status DC Methylprednisolone (Medrol) 4 mg TIDPC PO Last administered on 01/10/17 18:27 ; Start 01/10/17 at 08:30; Stop 01/10/17 at 17:31; Status DC Methylprednisolone (Medrol) 8 mg QHS PO Last administered on 01/10/17 20:46; Start 01/10/17 at 21:00; Stop 01/10/17 at 21:01; Status DC Methylprednisolone (Medrol) 4 mg QIDAFTMEAL PO Last administered on 01/11/17 22:51; Start 01/11/17 at 09:00; Stop 01/11/17 at 21:01; Status DC Methylprednisolone (Medrol) 4 mg TID PO ; Start 01/12/17 at 09:00; Stop at 21:01 Methylprednisolone (Medrol) 4 mg BID PO ; Start 01/13/17 at 09:00; Stop at 21:01 Methylprednisolone (Medrol) 4 mg DAILY PO ; Start 01/14/17 at 09:00; Stop at 09:01 Pantoprazole Sodium (Protonix) 40 mg DAILYAC PO Last administered on 01/11/17 08:53; Start 01/09/17 at 11:30 Acetaminophen/ Hydrocodone Bitart (Lortab 10/325) 1 tab PRN Q6HRS PRN PO PAIN Last administered on 01/10/17 06:47; Start 01/09/17 at 11:15; Stop 01/10/17 at 12:09; Status DC Bisacodyl (Dulcolax Supp) 10 mg PRN DAILY PRN [place] CONSTIPATION; Start 01/09/17 at 11:30 Bisacodyl (Dulcolax Tab) 10 mg DAILY PO Last administered on 01/11/17 16:49; Start 01/09/17 at 12:00 Magnesium Citrate (Citroma) 296 ml PRN 1X PRN PO CONSTIPATION Last administered on 01/09/17 15:41; Start 01/09/17 at 11:30 Apixaban (Eliquis) 5 mg BID PO Last administered on 01/11/17 09:00; Start at 14:30; Stop 01/11/17 at 10:38; Status DC Diltiazem HCl (Cardizem 24hr Cd) 120 mg DAILY PO Last administered on 08:59; Start 01/09/17 at 14:30; Stop 01/11/17 at 10:43; Status DC Info (Anti-Coagulation Monitoring By Pharmacy) 1 each PRN DAILY PRN MC SEE COMMENTS Last administered on 01/11/17 08:49; Start 01/09/17 at 14:00 Simvastatin (Zocor) 40 mg QHS PO Last administered on 01/10/17 20:46; Start at 21:00; Stop 01/11/17 at 10:45; Status DC Losartan Potassium (Cozaar) 100 mg DAILY PO Last administered on 01/11/17 09: 00; Start 01/10/17 at 09:00; Stop 01/11/17 at 10:43; Status DC Sertraline HCl (Zoloft) 100 mg DAILY PO Last administered on 01/11/17 08:54; Start 01/10/17 at 09:00 Hydrochlorothiazide (Hydrodiuril) 25 mg DAILY PO Last administered on 08:36; Start 01/10/17 at 09:00 Sertraline HCl (Zoloft) 100 mg 1X ONCE PO Last administered on 01/09/17 21:07 ; Start 01/09/17 at 21:00; Stop 01/09/17 at 21:01; Status DC Acetaminophen/ Hydrocodone Bitart (Lortab 10/325) 1 tab PRN Q4HRS PRN PO PAIN Last administered on 01/11/17 22:55; Start 01/10/17 at 12:15 Aspirin (Ecotrin) 325 mg 1X ONCE PO Last administered on 01/11/17 11:34; Start 01/11/17 at 10:45; Stop 01/11/17 at 10:46; Status DC Diltiazem HCl (Cardizem 24hr Cd) 240 mg DAILY PO Last administered on 08:35; Start 01/12/17 at 09:00 Losartan Potassium (Cozaar) 50 mg DAILY PO Last administered on 01/12/17 08:36 ; Start 01/12/17 at 09:00 Atorvastatin Calcium (Lipitor) 20 mg QHS PO Last administered on 01/11/17 20: 56; Start 01/11/17 at 21:00 Morphine Sulfate 2 mg PRN Q4HRS PRN IV PAIN SEVERE; Start 01/11/17 at 20:15 Ondansetron HCl (Zofran) 4 mg PRN Q6HRS PRN IV NAUSEA/VOMITING; Start 01/13/17 at 07:00; Stop 01/14/17 at 06:59 Fentanyl Citrate (Fentanyl 2ml Vial) 25 mcg PRN Q5MIN PRN IV MILD PAIN; Start 01/13/17 at 07:00; Stop 01/14/17 at 06:59 Fentanyl Citrate (Fentanyl 2ml Vial) 50 mcg PRN Q5MIN PRN IV MODERATE PAIN; Start 01/13/17 at 07:00; Stop 01/14/17 at 06:59 Morphine Sulfate 1 mg PRN Q10MIN PRN IV SEVERE PAIN; Start 01/13/17 at 07:00; Stop 01/14/17 at 06:59 Ringer's Solution 1,000 ml @ 30 mls/hr Q24H IV ; Start 01/13/17 at 07:00; Stop 01/13/17 at 18:59 Lidocaine HCl (Xylocaine-Mpf 1% Vial) 2 ml PRN 1X PRN ID IV START; Start at 07:00; Stop 01/14/17 at 06:59 Hydromorphone HCl (Dilaudid) 0.5 mg PRN Q10MIN PRN IV SEV PAIN, Second choice; Start 01/13/17 at 07:00; Stop 01/14/17 at 06:59 Prochlorperazine Edisylate (Compazine) 5 mg PACU PRN PRN IV NAUSEA, MRX1; Start 01/13/17 at 07:00; Stop 01/14/17 at 06:59 Active Scripts Active Reported Colace (Docusate Sodium) 100 Mg Capsule 100 Mg PO BID PRN Hydrocodone-Apap 5-325 (Hydrocodone Bit/Acetaminophen) 1 Each Tablet 1 Tab PO PRN Q6HRS PRN Cyclobenzaprine Hcl 10 Mg Tablet 1 Tab PO TID Ibuprofen 600 Mg Tablet 600 Mg PO PRN Q6HRS PRN Simvastatin 40 Mg Tablet 1 Tab PO QHS Losartan-Hctz 100-25 Mg Tab (Losartan/Hydrochlorothiazide) 1 Each Tablet 1 Tab PO DAILY Zoloft (Sertraline Hcl) 100 Mg Tablet 1 Tab PO DAILY Vitals/I & O Vital Sign - Last 24 Hours 01/11/17 01/11/17 01/11/17 01/11/17 11:00 12:50 15:00 16:21 Temp 97.9 98.4 98.4 97.9 98.4 98.4 Pulse 93 94 92 Resp 18 20 19 B/P (MAP) 130/76 (94) 125/66 (85) 125/66 (85) Pulse Ox 94 96 93 O2 Delivery Nasal Cannula Nasal Cannula Nasal Cannula Nasal Cannula O2 Flow Rate 2.0 2.0 2.0 01/11/17 01/11/17 01/11/17 01/11/17 16:55 17:55 19:00 19:45 Temp 97.9 97.9 Pulse 92 Resp 18 B/P (MAP) 125/84 (98) Pulse Ox 93 O2 Delivery Nasal Cannula Nasal Cannula Nasal Cannula Nasal Cannula O2 Flow Rate 2.0 2.0 2.0 2.0 01/11/17 01/11/17 01/12/17 01/12/17 22:49 22:55 02:55 07:00 Temp 97.9 97.5 98.2 97.9 97.5 98.2 Pulse 98 102 100 Resp 16 16 19 B/P (MAP) 138/81 (100) 143/85 (104) 142/97 (112) Pulse Ox 94 93 94 O2 Delivery Nasal Cannula Nasal Cannula Nasal Cannula Nasal Cannula O2 Flow Rate 2.0 2.0 2.0 01/12/17 01/12/17 08:35 08:36 Pulse 121 126 B/P (MAP) 142/97 142/97 LOYDA ELLER MD Jan 12, 2017 09:43
--- NOTE | 2017-01-12 10:18 | CARD ---
APPROVED REPORT EXAM: Two-dimensional and M-mode echocardiogram with Doppler and color Doppler. Other Information Quality : Good INDICATION Atrial Fibrillation 2D DIMENSIONS RVDd3.6 (2.9-3.5cm)Left Atrium(2D)4.6 (1.6-4.0cm) IVSd1.7 (0.7-1.1cm)Aortic Root(2D)3.3 (2.0-3.7cm) LVDd3.2 (3.9-5.9cm)LVOT Diameter2.0 (1.8-2.4cm) PWd1.6 (0.7-1.1cm)LVDs1.7 (2.5-4.0cm) FS (%) 35.0 %SV31.4 ml LVEF(%)70.0 (>50%) Aortic Valve AoV Peak Subhash.108.7cm/Mark Peak GR.4.7mmHg Mitral Valve MV E [id number]/sMV DECEL [id number] TDI Lateral E' P. V6.18cm/sMedial E' P. V6.50cm/s E/Lateral E'20.2E/Medial E'19.2 Tricuspid Valve TR P. [id number]/sRAP [id number] TR Peak Gr.[id number] LEFT VENTRICLE The left ventricle is normal size. There is moderate concentric left ventricular hypertrophy. The lef t ventricular systolic function is normal and the ejection fraction is within normal range. The Eject ion Fraction is 65-70%. There is normal LV segmental wall motion. Tissue Doppler imaging reveals mode rate left ventricular diastolic dysfunction. RIGHT VENTRICLE The right ventricle is normal size. The right ventricular systolic function is normal. ATRIA The left atrium is mildly dilated. The right atrium size is normal. The interatrial septum is intact with no evidence for an atrial septal defect or patent foramen ovale as noted on 2-D or Doppler imagi ng. AORTIC VALVE The aortic valve is calcified but opens well. Doppler and Color Flow revealed no significant aortic r egurgitation. There is no significant aortic valvular stenosis. MITRAL VALVE The mitral valve is normal in structure and function. Posterior mitral annular calcification is mild. There is no evidence of mitral valve prolapse. There is no mitral valve stenosis. Doppler and Color- flow revealed trace mitral regurgitation. TRICUSPID VALVE The tricuspid valve is normal in structure and function. Doppler and Color Flow revealed trace tricus pid regurgitation.There is mild-moderate pulmonary hypertension.The PA pressure was estimated at 42 m mHg. There is no tricuspid valve stenosis. PULMONIC VALVE Doppler and Color Flow revealed trace pulmonic valvular regurgitation. There is no pulmonic valvular stenosis. GREAT VESSELS The aortic root is normal in size. The ascending aorta is normal in size. The IVC is normal in size a nd collapses >50% with inspiration. PERICARDIAL EFFUSION There is no evidence of significant pericardial effusion. Critical Notification Critical Value: No <Conclusion> The left ventricular systolic function is normal and the ejection fraction is within normal range. Th e Ejection Fraction is 65-70%. There is normal LV segmental wall motion.
[2017-01-12] MEDS ORDERED: LIDOCAINE 1% / SOD BICARB 8.4% 20 ML VIAL. IJ ONE ×2 (10:24→11:15)
[2017-01-12] MEDS ORDERED: IOHEXOL 300 MG/ML 50 ML VIAL. ONE (10:26)
[2017-01-12] MEDS ORDERED: MIDAZOLAM HCL/PF 5 MG/5 ML VIAL. ONE (10:44)
[2017-01-12] MEDS ORDERED: fentaNYL PF VIAL 250 MCG/5 ML VIAL ONE (10:44)
[2017-01-12] MEDS ORDERED: fentaNYL PF VIAL 250 MCG/5 ML VIAL IV ONE (11:15)
[2017-01-12] MEDS ORDERED: IOHEXOL 300 MG/ML 50 ML VIAL. IART ONE (11:15)
[2017-01-12] MEDS ORDERED: MIDAZOLAM HCL/PF 5 MG/5 ML VIAL. IV ONE (11:15)
--- NOTE | 2017-01-12 11:36 | PDOC ---
PROGRESS NOTES Chief Complaint Chief Complaint 1. New atrial fib/flutter RVR 2. Obesity BMI 36 3. Recent fall with back injury 4. Acute back pain no resolve with PO pain meds 5. HTN, dyslipidemia - chronic stable 6. Ex smoker - quit 30 yrs ago 7. Disc Bulge 2, L2 compression fx L1, recent - recent fall History of Present Illness History of Present Illness Out getting kyphoplasty PLAn: PLanned for electrical cardioversion tmr by cards No acute issues per RN Vitals Vitals Vital Signs Date Time Temp Pulse Resp B/P (MAP) Pulse Ox O2 Delivery O2 Flow Rate FiO2 01/12/17 08:36 126 142/97 01/12/17 08:00 Nasal Cannula 2.0 01/12/17 07:00 98.2 19 94 98.2 Physical Exam General: Alert, Oriented X3, Cooperative, No acute distress Heart: Regular rate Lungs: Clear Abdomen: Normal bowel sounds, Soft, No tenderness, No hepatosplenomegaly, No masses Extremities: No clubbing, No cyanosis, No edema, Normal pulses, No tenderness/ swelling Skin: No rashes, No breakdown, No significant lesion Review of Systems Review of Systems out in OR Comment Review of Relevant I have reviewed the following items peter (where applicable) has been applied. Medications Current Medications Hydromorphone HCl (Dilaudid) 1 mg 1X ONCE IV Last administered on 01/08/17 18 :56; Start 01/08/17 at 18:15; Stop 01/08/17 at 18:16; Status DC Ondansetron HCl (Zofran) 4 mg 1X ONCE IV Last administered on 01/08/17 18:55 ; Start 01/08/17 at 18:15; Stop 01/08/17 at 18:16; Status DC Sodium Chloride 1,000 ml @ 1,000 mls/hr 1X ONCE IV Last administered on 18:52; Start 01/08/17 at 18:15; Stop 01/08/17 at 19:14; Status DC Diltiazem HCl 125 mg/Dextrose 125 ml @ 0 mls/hr CONT PRN IV SEE I/O RECORD Last administered on 01/09/17 06:14; Start 01/08/17 at 18:15; Stop 01/11/17 at 10:43; Status DC Diltiazem HCl (Cardizem) 10 mg 1X ONCE IVP Last administered on 01/08/17 18: 53; Start 01/08/17 at 18:15; Stop 01/08/17 at 18:16; Status DC Ondansetron HCl (Zofran) 4 mg PRN Q8HRS PRN IV NAUSEA/VOMITING; Start 01/08/17 at 19:15; Stop 01/08/17 at 19:25; Status DC Fentanyl Citrate (Fentanyl 2ml Vial) 50 mcg PRN Q2HR PRN IV PAIN Last administered on 01/09/17 04:22; Start 01/08/17 at 19:15; Stop 01/09/17 at 19:14 ; Status DC Acetaminophen (Tylenol) 650 mg PRN Q4HRS PRN PO FEVER; Start 01/08/17 at 19:15 ; Stop 01/09/17 at 19:14; Status DC Nitroglycerin (Nitrostat) 0.4 mg PRN Q5MIN PRN SL CHEST PAIN; Start 01/08/17 at 19:15; Stop 01/09/17 at 19:14; Status DC Ondansetron HCl (Zofran) 4 mg PRN Q6HRS PRN IV NAUSEA/VOMITING Last administered on 01/09/17 07:22; Start 01/08/17 at 19:30; Stop 01/09/17 at 19:29 ; Status DC Cyclobenzaprine HCl (Flexeril) 10 mg TID PO Last administered on 01/09/17 09: 23; Start 01/08/17 at 21:00; Stop 01/09/17 at 11:12; Status DC Ibuprofen (Motrin) 600 mg TID PO Last administered on 01/09/17 09:24; Start at 21:00; Stop 01/09/17 at 11:12; Status DC Lidocaine (Lidoderm) 1 patch DAILY TD Last administered on 01/11/17 08:59; Start 01/08/17 at 19:30 Ondansetron HCl (Zofran) 4 mg PRN Q6HRS PRN IV NAUSEA/VOMITING; Start 01/08/17 at 19:30; Stop 01/09/17 at 19:29; Status UNV Enoxaparin Sodium (Lovenox 40mg Syringe) 40 mg Q24H SQ Last administered on 09:24; Start 01/09/17 at 09:00; Stop 01/09/17 at 10:55; Status DC Polyethylene Glycol (miraLAX PACKET) 17 gm DAILY PO Last administered on 16:49; Start 01/09/17 at 09:30 Magnesium Hydroxide (Milk Of Magnesia) 2,400 mg PRN DAILY PRN PO CONSTIPATION Last administered on 01/09/17 09:22; Start 01/09/17 at 09:00 Heparin Sodium (Porcine) (Heparin Sq) 5,000 unit Q8HRS SQ ; Start 01/09/17 at 14 :00; Stop 01/09/17 at 14:00; Status DC Cyclobenzaprine HCl (Flexeril) 10 mg PRN Q6HRS PRN PO MUSCLE SPASMS Last administered on 01/11/17 22:55; Start 01/10/17 at 09:00 Methylprednisolone (Medrol) 8 mg BID PO Last administered on 01/09/17 21:06; Start 01/09/17 at 11:30; Stop 01/09/17 at 21:01; Status DC Methylprednisolone (Medrol) 4 mg BIDPCLD PO Last administered on 01/09/17 18: 30; Start 01/09/17 at 12:30; Stop 01/09/17 at 17:31; Status DC Methylprednisolone (Medrol) 4 mg TIDPC PO Last administered on 01/10/17 18:27 ; Start 01/10/17 at 08:30; Stop 01/10/17 at 17:31; Status DC Methylprednisolone (Medrol) 8 mg QHS PO Last administered on 01/10/17 20:46; Start 01/10/17 at 21:00; Stop 01/10/17 at 21:01; Status DC Methylprednisolone (Medrol) 4 mg QIDAFTMEAL PO Last administered on 01/11/17 22:51; Start 01/11/17 at 09:00; Stop 01/11/17 at 21:01; Status DC Methylprednisolone (Medrol) 4 mg TID PO ; Start 01/12/17 at 09:00; Stop at 21:01 Methylprednisolone (Medrol) 4 mg BID PO ; Start 01/13/17 at 09:00; Stop at 21:01 Methylprednisolone (Medrol) 4 mg DAILY PO ; Start 01/14/17 at 09:00; Stop at 09:01 Pantoprazole Sodium (Protonix) 40 mg DAILYAC PO Last administered on 01/11/17 08:53; Start 01/09/17 at 11:30 Acetaminophen/ Hydrocodone Bitart (Lortab 10/325) 1 tab PRN Q6HRS PRN PO PAIN Last administered on 01/10/17 06:47; Start 01/09/17 at 11:15; Stop 01/10/17 at 12:09; Status DC Bisacodyl (Dulcolax Supp) 10 mg PRN DAILY PRN RI CONSTIPATION; Start 01/09/17 at 11:30 Bisacodyl (Dulcolax Tab) 10 mg DAILY PO Last administered on 01/11/17 16:49; Start 01/09/17 at 12:00 Magnesium Citrate (Citroma) 296 ml PRN 1X PRN PO CONSTIPATION Last administered on 01/09/17 15:41; Start 01/09/17 at 11:30 Apixaban (Eliquis) 5 mg BID PO Last administered on 01/11/17 09:00; Start at 14:30; Stop 01/11/17 at 10:38; Status DC Diltiazem HCl (Cardizem 24hr Cd) 120 mg DAILY PO Last administered on 08:59; Start 01/09/17 at 14:30; Stop 01/11/17 at 10:43; Status DC Info (Anti-Coagulation Monitoring By Pharmacy) 1 each PRN DAILY PRN MC SEE COMMENTS Last administered on 01/11/17 08:49; Start 01/09/17 at 14:00 Simvastatin (Zocor) 40 mg QHS PO Last administered on 01/10/17 20:46; Start at 21:00; Stop 01/11/17 at 10:45; Status DC Losartan Potassium (Cozaar) 100 mg DAILY PO Last administered on 01/11/17 09: 00; Start 01/10/17 at 09:00; Stop 01/11/17 at 10:43; Status DC Sertraline HCl (Zoloft) 100 mg DAILY PO Last administered on 01/11/17 08:54; Start 01/10/17 at 09:00 Hydrochlorothiazide (Hydrodiuril) 25 mg DAILY PO Last administered on 08:36; Start 01/10/17 at 09:00 Sertraline HCl (Zoloft) 100 mg 1X ONCE PO Last administered on 01/09/17 21:07 ; Start 01/09/17 at 21:00; Stop 01/09/17 at 21:01; Status DC Acetaminophen/ Hydrocodone Bitart (Lortab 10/325) 1 tab PRN Q4HRS PRN PO PAIN Last administered on 01/11/17 22:55; Start 01/10/17 at 12:15 Aspirin (Ecotrin) 325 mg 1X ONCE PO Last administered on 01/11/17 11:34; Start 01/11/17 at 10:45; Stop 01/11/17 at 10:46; Status DC Diltiazem HCl (Cardizem 24hr Cd) 240 mg DAILY PO Last administered on 08:35; Start 01/12/17 at 09:00 Losartan Potassium (Cozaar) 50 mg DAILY PO Last administered on 01/12/17 08:36 ; Start 01/12/17 at 09:00 Atorvastatin Calcium (Lipitor) 20 mg QHS PO Last administered on 01/11/17 20: 56; Start 01/11/17 at 21:00 Morphine Sulfate 2 mg PRN Q4HRS PRN IV PAIN SEVERE; Start 01/11/17 at 20:15 Ondansetron HCl (Zofran) 4 mg PRN Q6HRS PRN IV NAUSEA/VOMITING; Start 01/13/17 at 07:00; Stop 01/14/17 at 06:59 Fentanyl Citrate (Fentanyl 2ml Vial) 25 mcg PRN Q5MIN PRN IV MILD PAIN; Start 01/13/17 at 07:00; Stop 01/14/17 at 06:59 Fentanyl Citrate (Fentanyl 2ml Vial) 50 mcg PRN Q5MIN PRN IV MODERATE PAIN; Start 01/13/17 at 07:00; Stop 01/14/17 at 06:59 Morphine Sulfate 1 mg PRN Q10MIN PRN IV SEVERE PAIN; Start 01/13/17 at 07:00; Stop 01/14/17 at 06:59 Ringer's Solution 1,000 ml @ 30 mls/hr Q24H IV ; Start 01/13/17 at 07:00; Stop 01/13/17 at 18:59 Lidocaine HCl (Xylocaine-Mpf 1% Vial) 2 ml PRN 1X PRN ID IV START; Start at 07:00; Stop 01/14/17 at 06:59 Hydromorphone HCl (Dilaudid) 0.5 mg PRN Q10MIN PRN IV SEV PAIN, Second choice; Start 01/13/17 at 07:00; Stop 01/14/17 at 06:59 Prochlorperazine Edisylate (Compazine) 5 mg PACU PRN PRN IV NAUSEA, MRX1; Start 01/13/17 at 07:00; Stop 01/14/17 at 06:59 Lidocaine/Sodium Bicarbonate (Buffered Lidocaine 1%) 20 ml STK-MED ONCE IJ ; Start 01/12/17 at 10:24; Stop 01/12/17 at 10:25; Status DC Iohexol (Omnipaque 300 Mg/ml) 50 ml STK-MED ONCE .ROUTE ; Start 01/12/17 at 10: 26; Stop 01/12/17 at 10:27; Status DC Midazolam HCl (Versed) 5 mg STK-MED ONCE .ROUTE ; Start 01/12/17 at 10:44; Stop 01/12/17 at 10:45; Status DC Fentanyl Citrate (Fentanyl 5ml Vial) 250 mcg STK-MED ONCE .ROUTE ; Start at 10:44; Stop 01/12/17 at 10:45; Status DC Cefazolin Sodium/ Dextrose 50 ml @ As Directed STK-MED ONCE IV ; Start 01/12/17 at 10:45; Stop 01/12/17 at 10:46; Status DC Lidocaine/Sodium Bicarbonate (Buffered Lidocaine 1%) 20 ml 1X ONCE IJ ; Start 01/12/17 at 11:15; Stop 01/12/17 at 11:20; Status DC Midazolam HCl (Versed) 5 mg 1X ONCE IV ; Start 01/12/17 at 11:15; Stop at 11:20; Status DC Fentanyl Citrate (Fentanyl 5ml Vial) 250 mcg 1X ONCE IV ; Start 01/12/17 at 11: 15; Stop 01/12/17 at 11:20; Status DC Iohexol (Omnipaque 300 Mg/ml) 50 ml 1X ONCE IART ; Start 01/12/17 at 11:15; Stop 01/12/17 at 11:20; Status DC Cefazolin Sodium/ Dextrose 50 ml @ 100 mls/hr 1X ONCE IV ; Start 01/12/17 at 11:15; Stop 01/12/17 at 11:44 Active Scripts Active Reported Colace (Docusate Sodium) 100 Mg Capsule 100 Mg PO BID PRN Hydrocodone-Apap 5-325 (Hydrocodone Bit/Acetaminophen) 1 Each Tablet 1 Tab PO PRN Q6HRS PRN Cyclobenzaprine Hcl 10 Mg Tablet 1 Tab PO TID Ibuprofen 600 Mg Tablet 600 Mg PO PRN Q6HRS PRN Simvastatin 40 Mg Tablet 1 Tab PO QHS Losartan-Hctz 100-25 Mg Tab (Losartan/Hydrochlorothiazide) 1 Each Tablet 1 Tab PO DAILY Zoloft (Sertraline Hcl) 100 Mg Tablet 1 Tab PO DAILY Vitals/I & O Vital Sign - Last 24 Hours 01/11/17 01/11/17 01/11/17 01/11/17 12:50 15:00 16:21 16:55 Temp 98.4 98.4 98.4 98.4 Pulse 94 92 Resp 20 19 B/P (MAP) 125/66 (85) 125/66 (85) Pulse Ox 96 93 O2 Delivery Nasal Cannula Nasal Cannula Nasal Cannula Nasal Cannula O2 Flow Rate 2.0 2.0 2.0 01/11/17 01/11/17 01/11/17 01/11/17 17:55 19:00 19:45 22:49 Temp 97.9 97.9 97.9 97.9 Pulse 92 98 Resp 18 16 B/P (MAP) 125/84 (98) 138/81 (100) Pulse Ox 93 94 O2 Delivery Nasal Cannula Nasal Cannula Nasal Cannula Nasal Cannula O2 Flow Rate 2.0 2.0 2.0 2.0 01/11/17 01/12/17 01/12/17 01/12/17 22:55 02:55 07:00 08:00 Temp 97.5 98.2 97.5 98.2 Pulse 102 100 Resp 16 19 B/P (MAP) 143/85 (104) 142/97 (112) Pulse Ox 93 94 O2 Delivery Nasal Cannula Nasal Cannula Nasal Cannula Nasal Cannula O2 Flow Rate 2.0 2.0 2.0 01/12/17 01/12/17 08:35 08:36 Pulse 121 126 B/P (MAP) 142/97 142/97 RAMANDEEP BABCOCK MD Jan 12, 2017 11:36
--- NOTE | 2017-01-12 11:42 | PDOC1 ---
IR Pre-Procedure H&P H&P Update L1 fracture seen on MRI. Otherwise, no significant change from Dr. Farley's admit H&P done on 01/08/17. TOMAS MULLINS MD Jan 12, 2017 11:42
--- NOTE | 2017-01-12 11:47 | PDOC ---
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
[2017-01-12] MEDS: HYDROcodone/APAP 10/325 1 TAB TABLET PO PRN ×2 (13:29→22:55)
--- NOTE | 2017-01-12 13:33 | RAD ---
PROCEDURES: 1. Left transpedicular kyphoplasty The procedure, risks, and complications, to include bleeding, infection, cement embolization, compression of the spinal canal and cement extrusion were explained to the patient and they understood and wished to proceed. Consent form signed. The back was prepped and draped using maximal sterile technique and 1% Xylocaine used for local topical anesthesia and deep periosteal anesthesia. Utilizing careful fluoroscopic biplane positioning, the L1 pedicles were identified. Using a left transpedicular approach, a trocar needle into the posterior aspect of the L1 vertebral body. Using curved needle technique, the kyphoplasty balloon was advanced across midline in the vertebral body. Kyphoplasty was then performed under fluoroscopic guidance. Balloon was deflated and carefully removed. Under very careful biplane fluoroscopic guidance, curved cement needle was advanced across midline. Polymethylmethacrylate was carefully injected into the vertebral body filling the the site of the compression fracture. Following the cement injections, the needles were removed, pressure placed, and hemostasis obtained. The patient tolerated the procedure well and returned to the floor in stable condition. Sedation: Conscious sedation for 41 minutes. Intravenous versed and fentanyl were given and the patient was monitored by the nurses in attendance. Complications: None Antibiotics: 2 g Ancef Fluoroscopy time: 1.8 minutes DAP: [id number] [id number] IMPRESSION: 1. Fluoroscopy-guided percutaneous transpedicular L1 kyphoplasty.
--- NOTE | 2017-01-12 15:04 | PDOC ---
DANAY JHAVERI CLINICAL RECRUITER 01/12/17 1503: CARDIO Progress Notes Date and Time Date of Service 01/12/2017 Time of Evaluation 1415 Subjective Subjective: No Chest Pain, No shortness of breath, No Palpitations, Other ( back pain feels a little better) Vitals Vitals Vital Signs Date Time Temp Pulse Resp B/P (MAP) Pulse Ox O2 Delivery O2 Flow Rate FiO2 01/12/17 14:45 99 Nasal Cannula 2.0 01/12/17 13:29 18 01/12/17 08:36 126 142/97 01/12/17 07:00 98.2 98.2 Weight Weight [ ] Physical Exam HEENT: Neck Supple W Full Motion Chest: Symmetric LUNGS: Clear to Auscultation Heart: S1S2, irregularly irregular (AFIB) Abdomen: Soft N/T Extremities: No Calf Tenderness Neurology: alert, oriented, follow commands Assessment Assessment 1. New onset atrial fibrillation; remains on AFIB, rate better controlled at this time 2. Morbid obesity 3. Intractable back pain: S/P kyphoplasty today Recommendations 1. Resume eliquis tonight. Discussed with staff and verified ok to start tonight. 2. MODESTA/CVN tomorrow, discussed risks and benefits and agreeable to proceed. 3. Will restart eliquis and proceed with MODESTA/CVN 24-48 post kyphoplasty. 4. Continue with cardizem and losartan. SERENITY RICO MD 01/12/17 1712: CARDIO Progress Notes Plan Plan Pt. seen and examined. 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 No acute events overnight. s/p kyphoplasty Denies any chest pain. HR not yet under good control restart anticoagulation plan for [place]/cvn tomorrow a.m. discussed with family and patient. DANAY JHAVERI APRN Jan 12, 2017 15:03 SERENITY RICO MD Jan 12, 2017 17:12
[2017-01-12] MEDS: APIXABAN 5 MG TABLET. PO SCH (21:28)
[2017-01-12] MEDS: ATORVASTATIN CALCIUM 20 MG TABLET PO SCH (21:28)
[2017-01-13 02:44] VITALS: BP 134/78
[2017-01-13] MEDS ORDERED: HYDROmorphone 2 MG/ML VIAL IV PRN (07:00)
[2017-01-13] MEDS ORDERED: ONDANSETRON PF 4 MG/2 ML VIAL. IV PRN (07:00)
[2017-01-13] MEDS ORDERED: PROCHLORPERAZINE 10 MG/2 ML VIAL. IV PRN (07:00)
[2017-01-13] MEDS ORDERED: LIDOCAINE 1% PF 2 ML VIAL. ID PRN (07:00)
[2017-01-13] MEDS ORDERED: IV RINGERS,LACTATED 1000ML 1,000 ML IV SCH (07:00)
[2017-01-13] MEDS ORDERED: fentaNYL PF VIAL 100 MCG/2 ML VIAL IV PRN (07:00)
[2017-01-13] MEDS ORDERED: MORPHINE SULFATE 4 MG/ML DISP.SYRIN. IV PRN (07:00)
[2017-01-13 07:15] VITALS: BP 135/94
[2017-01-13] MEDS: PANTOPRAZOLE 40 MG TABLET.DR. PO SCH (07:30)
[2017-01-13] MEDS: APIXABAN 5 MG TABLET. PO SCH ×2 (08:38→21:16)
[2017-01-13] MEDS: BISACODYL 5 MG TABLET.DR. PO SCH (08:42)
[2017-01-13] MEDS: LOSARTAN POTASSIUM 50 MG TABLET. PO SCH (08:42)
[2017-01-13] MEDS: hydroCHLOROthiazide 25 MG TABLET PO SCH (08:42)
[2017-01-13] MEDS: POLYETHYLENE GLYCOL 3350 17 GM PACKET. PO SCH (08:43)
[2017-01-13] MEDS: methylPREDNISolone 4 MG TABLET. PO SCH ×2 (08:43→21:16)
[2017-01-13] MEDS: LIDOCAINE (700MG/PATCH) PATCH. TD SCH (08:43)
[2017-01-13] MEDS: SERTRALINE 50 MG TABLET. PO SCH (08:43)
[2017-01-13] MEDS: ANTI-COAG MONITOR BY PHARMACY. MC PRN (09:53)
[2017-01-13] MEDS ORDERED: LIDOCAINE 2% TOPICAL JELLY 30GM TUBE. TP ONE (10:15)
[2017-01-13] MEDS ORDERED: BENZOCAINE ONE 20% MUCOSAL SPRAY. MM (10:15)
[2017-01-13] MEDS ORDERED: LIDOCAINE 2% VISCOUS 15 ML SOLUTION. SWSW ONE (10:15)
--- NOTE | 2017-01-13 11:01 | PDOC ---
PROGRESS NOTES Chief Complaint Chief Complaint 1. New atrial fib/flutter RVR 2. Obesity BMI 36 3. Recent fall with back injury 4. Acute back pain no resolve with PO pain meds 5. HTN, dyslipidemia - chronic stable 6. Ex smoker - quit 30 yrs ago 7. Disc Bulge 2, L2 compression fx L1, recent - s/p kyphoplasty 01/12/17 History of Present Illness History of Present Illness Out getting MCKAYLA tehn cardioversion NO overnight calls s./p kyphoplasty PLAn: Await from [facility] and cardioversion WIll need 6 MW - 92-94% Vitals Vitals Vital Signs Date Time Temp Pulse Resp B/P (MAP) Pulse Ox O2 Delivery O2 Flow Rate FiO2 01/13/17 10:33 97.5 90 20 113/94 91 Room Air 97.5 01/13/17 08:00 2.0 Physical Exam General: Alert, Oriented X3, Cooperative, No acute distress Heart: Regular rate Lungs: Clear Abdomen: Normal bowel sounds, Soft, No tenderness, No hepatosplenomegaly, No masses Extremities: No clubbing, No cyanosis, No edema, Normal pulses, No tenderness/ swelling Skin: No rashes, No breakdown, No significant lesion Review of Systems Review of Systems not in room Comment Review of Relevant I have reviewed the following items peter (where applicable) has been applied. Medications Current Medications Hydromorphone HCl (Dilaudid) 1 mg 1X ONCE IV Last administered on 01/08/17 18 :56; Start 01/08/17 at 18:15; Stop 01/08/17 at 18:16; Status DC Ondansetron HCl (Zofran) 4 mg 1X ONCE IV Last administered on 01/08/17 18:55 ; Start 01/08/17 at 18:15; Stop 01/08/17 at 18:16; Status DC Sodium Chloride 1,000 ml @ 1,000 mls/hr 1X ONCE IV Last administered on 18:52; Start 01/08/17 at 18:15; Stop 01/08/17 at 19:14; Status DC Diltiazem HCl 125 mg/Dextrose 125 ml @ 0 mls/hr CONT PRN IV SEE I/O RECORD Last administered on 01/09/17 06:14; Start 01/08/17 at 18:15; Stop 01/11/17 at 10:43; Status DC Diltiazem HCl (Cardizem) 10 mg 1X ONCE IVP Last administered on 01/08/17 18: 53; Start 01/08/17 at 18:15; Stop 01/08/17 at 18:16; Status DC Ondansetron HCl (Zofran) 4 mg PRN Q8HRS PRN IV NAUSEA/VOMITING; Start 01/08/17 at 19:15; Stop 01/08/17 at 19:25; Status DC Fentanyl Citrate (Fentanyl 2ml Vial) 50 mcg PRN Q2HR PRN IV PAIN Last administered on 01/09/17 04:22; Start 01/08/17 at 19:15; Stop 01/09/17 at 19:14 ; Status DC Acetaminophen (Tylenol) 650 mg PRN Q4HRS PRN PO FEVER; Start 01/08/17 at 19:15 ; Stop 01/09/17 at 19:14; Status DC Nitroglycerin (Nitrostat) 0.4 mg PRN Q5MIN PRN SL CHEST PAIN; Start 01/08/17 at 19:15; Stop 01/09/17 at 19:14; Status DC Ondansetron HCl (Zofran) 4 mg PRN Q6HRS PRN IV NAUSEA/VOMITING Last administered on 01/09/17 07:22; Start 01/08/17 at 19:30; Stop 01/09/17 at 19:29 ; Status DC Cyclobenzaprine HCl (Flexeril) 10 mg TID PO Last administered on 01/09/17 09: 23; Start 01/08/17 at 21:00; Stop 01/09/17 at 11:12; Status DC Ibuprofen (Motrin) 600 mg TID PO Last administered on 01/09/17 09:24; Start at 21:00; Stop 01/09/17 at 11:12; Status DC Lidocaine (Lidoderm) 1 patch DAILY TD Last administered on 01/11/17 08:59; Start 01/08/17 at 19:30 Ondansetron HCl (Zofran) 4 mg PRN Q6HRS PRN IV NAUSEA/VOMITING; Start 01/08/17 at 19:30; Stop 01/09/17 at 19:29; Status UNV Enoxaparin Sodium (Lovenox 40mg Syringe) 40 mg Q24H SQ Last administered on 09:24; Start 01/09/17 at 09:00; Stop 01/09/17 at 10:55; Status DC Polyethylene Glycol (miraLAX PACKET) 17 gm DAILY PO Last administered on 16:49; Start 01/09/17 at 09:30 Magnesium Hydroxide (Milk Of Magnesia) 2,400 mg PRN DAILY PRN PO CONSTIPATION Last administered on 01/09/17 09:22; Start 01/09/17 at 09:00 Heparin Sodium (Porcine) (Heparin Sq) 5,000 unit Q8HRS SQ ; Start 01/09/17 at 14 :00; Stop 01/09/17 at 14:00; Status DC Cyclobenzaprine HCl (Flexeril) 10 mg PRN Q6HRS PRN PO MUSCLE SPASMS Last administered on 01/11/17 22:55; Start 01/10/17 at 09:00 Methylprednisolone (Medrol) 8 mg BID PO Last administered on 01/09/17 21:06; Start 01/09/17 at 11:30; Stop 01/09/17 at 21:01; Status DC Methylprednisolone (Medrol) 4 mg BIDPCLD PO Last administered on 01/09/17 18: 30; Start 01/09/17 at 12:30; Stop 01/09/17 at 17:31; Status DC Methylprednisolone (Medrol) 4 mg TIDPC PO Last administered on 01/10/17 18:27 ; Start 01/10/17 at 08:30; Stop 01/10/17 at 17:31; Status DC Methylprednisolone (Medrol) 8 mg QHS PO Last administered on 01/10/17 20:46; Start 01/10/17 at 21:00; Stop 01/10/17 at 21:01; Status DC Methylprednisolone (Medrol) 4 mg QIDAFTMEAL PO Last administered on 01/11/17 22:51; Start 01/11/17 at 09:00; Stop 01/11/17 at 21:01; Status DC Methylprednisolone (Medrol) 4 mg TID PO Last administered on 01/12/17 21:28; Start 01/12/17 at 09:00; Stop 01/12/17 at 21:01; Status DC Methylprednisolone (Medrol) 4 mg BID PO ; Start 01/13/17 at 09:00; Stop at 21:01 Methylprednisolone (Medrol) 4 mg DAILY PO ; Start 01/14/17 at 09:00; Stop at 09:01 Pantoprazole Sodium (Protonix) 40 mg DAILYAC PO Last administered on 01/11/17 08:53; Start 01/09/17 at 11:30 Acetaminophen/ Hydrocodone Bitart (Lortab 10/325) 1 tab PRN Q6HRS PRN PO PAIN Last administered on 01/10/17 06:47; Start 01/09/17 at 11:15; Stop 01/10/17 at 12:09; Status DC Bisacodyl (Dulcolax Supp) 10 mg PRN DAILY PRN [place] CONSTIPATION; Start 01/09/17 at 11:30 Bisacodyl (Dulcolax Tab) 10 mg DAILY PO Last administered on 01/11/17 16:49; Start 01/09/17 at 12:00 Magnesium Citrate (Citroma) 296 ml PRN 1X PRN PO CONSTIPATION Last administered on 01/09/17 15:41; Start 01/09/17 at 11:30 Apixaban (Eliquis) 5 mg BID PO Last administered on 01/11/17 09:00; Start at 14:30; Stop 01/11/17 at 10:38; Status DC Diltiazem HCl (Cardizem 24hr Cd) 120 mg DAILY PO Last administered on 08:59; Start 01/09/17 at 14:30; Stop 01/11/17 at 10:43; Status DC Info (Anti-Coagulation Monitoring By Pharmacy) 1 each PRN DAILY PRN MC SEE COMMENTS Last administered on 01/13/17 09:53; Start 01/09/17 at 14:00 Simvastatin (Zocor) 40 mg QHS PO Last administered on 01/10/17 20:46; Start at 21:00; Stop 01/11/17 at 10:45; Status DC Losartan Potassium (Cozaar) 100 mg DAILY PO Last administered on 01/11/17 09: 00; Start 01/10/17 at 09:00; Stop 01/11/17 at 10:43; Status DC Sertraline HCl (Zoloft) 100 mg DAILY PO Last administered on 01/11/17 08:54; Start 01/10/17 at 09:00 Hydrochlorothiazide (Hydrodiuril) 25 mg DAILY PO Last administered on 08:36; Start 01/10/17 at 09:00 Sertraline HCl (Zoloft) 100 mg 1X ONCE PO Last administered on 01/09/17 21:07 ; Start 01/09/17 at 21:00; Stop 01/09/17 at 21:01; Status DC Acetaminophen/ Hydrocodone Bitart (Lortab 10/325) 1 tab PRN Q4HRS PRN PO PAIN Last administered on 01/12/17 22:55; Start 01/10/17 at 12:15 Aspirin (Ecotrin) 325 mg 1X ONCE PO Last administered on 01/11/17 11:34; Start 01/11/17 at 10:45; Stop 01/11/17 at 10:46; Status DC Diltiazem HCl (Cardizem 24hr Cd) 240 mg DAILY PO Last administered on 08:35; Start 01/12/17 at 09:00 Losartan Potassium (Cozaar) 50 mg DAILY PO Last administered on 01/12/17 08:36 ; Start 01/12/17 at 09:00 Atorvastatin Calcium (Lipitor) 20 mg QHS PO Last administered on 01/12/17 21: 28; Start 01/11/17 at 21:00 Morphine Sulfate 2 mg PRN Q4HRS PRN IV PAIN SEVERE; Start 01/11/17 at 20:15 Ondansetron HCl (Zofran) 4 mg PRN Q6HRS PRN IV NAUSEA/VOMITING; Start 01/13/17 at 07:00; Stop 01/14/17 at 06:59 Fentanyl Citrate (Fentanyl 2ml Vial) 25 mcg PRN Q5MIN PRN IV MILD PAIN; Start 01/13/17 at 07:00; Stop 01/14/17 at 06:59 Fentanyl Citrate (Fentanyl 2ml Vial) 50 mcg PRN Q5MIN PRN IV MODERATE PAIN; Start 01/13/17 at 07:00; Stop 01/14/17 at 06:59 Morphine Sulfate 1 mg PRN Q10MIN PRN IV SEVERE PAIN; Start 01/13/17 at 07:00; Stop 01/14/17 at 06:59 Ringer's Solution 1,000 ml @ 30 mls/hr Q24H IV Last administered on 01/13/17 10:05; Start 01/13/17 at 07:00; Stop 01/13/17 at 18:59 Lidocaine HCl (Xylocaine-Mpf 1% Vial) 2 ml PRN 1X PRN ID IV START Last administered on 01/13/17 10:08; Start 01/13/17 at 07:00; Stop 01/14/17 at 06:59 Hydromorphone HCl (Dilaudid) 0.5 mg PRN Q10MIN PRN IV SEV PAIN, Second choice; Start 01/13/17 at 07:00; Stop 01/14/17 at 06:59 Prochlorperazine Edisylate (Compazine) 5 mg PACU PRN PRN IV NAUSEA, MRX1; Start 01/13/17 at 07:00; Stop 01/14/17 at 06:59 Lidocaine/Sodium Bicarbonate (Buffered Lidocaine 1%) 20 ml STK-MED ONCE IJ ; Start 01/12/17 at 10:24; Stop 01/12/17 at 10:25; Status DC Iohexol (Omnipaque 300 Mg/ml) 50 ml STK-MED ONCE .ROUTE ; Start 01/12/17 at 10: 26; Stop 01/12/17 at 10:27; Status DC Midazolam HCl (Versed) 5 mg STK-MED ONCE .ROUTE ; Start 01/12/17 at 10:44; Stop 01/12/17 at 10:45; Status DC Fentanyl Citrate (Fentanyl 5ml Vial) 250 mcg STK-MED ONCE .ROUTE ; Start at 10:44; Stop 01/12/17 at 10:45; Status DC Cefazolin Sodium/ Dextrose 50 ml @ As Directed STK-MED ONCE IV ; Start 01/12/17 at 10:45; Stop 01/12/17 at 10:46; Status DC Lidocaine/Sodium Bicarbonate (Buffered Lidocaine 1%) 20 ml 1X ONCE IJ Last administered on 01/12/17 11:40; Start 01/12/17 at 11:15; Stop 01/12/17 at 11:20 ; Status DC Midazolam HCl (Versed) 5 mg 1X ONCE IV Last administered on 01/12/17 11:41; Start 01/12/17 at 11:15; Stop 01/12/17 at 11:20; Status DC Fentanyl Citrate (Fentanyl 5ml Vial) 250 mcg 1X ONCE IV Last administered on 01/12/17 11:45; Start 01/12/17 at 11:15; Stop 01/12/17 at 11:20; Status DC Iohexol (Omnipaque 300 Mg/ml) 50 ml 1X ONCE IART Last administered on 11:45; Start 01/12/17 at 11:15; Stop 01/12/17 at 11:20; Status DC Cefazolin Sodium/ Dextrose 50 ml @ 100 mls/hr 1X ONCE IV Last administered on 01/12/17 11:04; Start 01/12/17 at 11:15; Stop 01/12/17 at 11:44; Status DC Apixaban (Eliquis) 5 mg BID PO Last administered on 01/13/17 08:38; Start 01/12/17 at 21:00 Lidocaine HCl (Xylocaine 2% Topical 30gm Tube) 1 qamar 1X ONCE TP Last administered on 01/13/17 10:24; Start 01/13/17 at 10:15; Stop 01/13/17 at 10:20 ; Status DC Benzocaine (Hurricaine One) 2 spray 1X ONCE MM Last administered on 01/13/17 10:24; Start 01/13/17 at 10:15; Stop 01/13/17 at 10:20; Status DC Lidocaine HCl (Viscous Lidocaine) 15 ml 1X ONCE SWSW Last administered on 01/13 10:25; Start 01/13/17 at 10:15; Stop 01/13/17 at 10:20; Status DC Active Scripts Active Reported Colace (Docusate Sodium) 100 Mg Capsule 100 Mg PO BID PRN Hydrocodone-Apap 5-325 (Hydrocodone Bit/Acetaminophen) 1 Each Tablet 1 Tab PO PRN Q6HRS PRN Cyclobenzaprine Hcl 10 Mg Tablet 1 Tab PO TID Ibuprofen 600 Mg Tablet 600 Mg PO PRN Q6HRS PRN Simvastatin 40 Mg Tablet 1 Tab PO QHS Losartan-Hctz 100-25 Mg Tab (Losartan/Hydrochlorothiazide) 1 Each Tablet 1 Tab PO DAILY Zoloft (Sertraline Hcl) 100 Mg Tablet 1 Tab PO DAILY Vitals/I & O Vital Sign - Last 24 Hours 01/12/17 01/12/17 01/12/17 01/12/17 11:45 13:29 14:45 15:00 Temp 98.3 98.3 Pulse 96 Resp 16 18 20 B/P (MAP) 156/88 (110) Pulse Ox 93 99 99 97 O2 Delivery Room Air Nasal Cannula BiPAP/CPAP O2 Flow Rate 2.0 2.0 01/12/17 01/12/17 01/12/17 01/12/17 19:40 19:50 22:45 22:55 Temp 98.4 98.6 98.4 98.6 Pulse 111 100 Resp 16 16 B/P (MAP) 138/79 (98) 137/78 (97) Pulse Ox 97 98 O2 Delivery Nasal Cannula Nasal Cannula Nasal Cannula Nasal Cannula O2 Flow Rate 2.0 4.5 4.5 2.0 01/12/17 01/13/17 01/13/17 01/13/17 23:55 02:44 07:15 08:00 Temp 97.7 98.3 97.7 98.3 Pulse 101 105 Resp 16 20 B/P (MAP) 134/78 (96) 135/94 (108) Pulse Ox 96 96 O2 Delivery Nasal Cannula Nasal Cannula Nasal Cannula Nasal Cannula O2 Flow Rate 2.0 4.5 4.5 2.0 01/13/17 10:33 Temp 97.5 97.5 Pulse 90 Resp 20 B/P (MAP) 113/94 Pulse Ox 91 O2 Delivery Room Air Intake and Output 01/13/17 01/13/17 01/14/17 15:00 23:00 07:00 Output Total 200 ml Balance -200 ml RAMANDEEP BABCOCK MD Jan 13, 2017 11:01
[2017-01-13] MEDS ORDERED: PROPOFOL 20 ML IV ONE (11:10)
[2017-01-13] MEDS: fentaNYL PF VIAL 100 MCG/2 ML VIAL IV PRN ×2 (11:27→11:48)
--- NOTE | 2017-01-13 11:53 | EKG ---
[facility] [address] [place] [id number] Test Date: 2017-01-13 Test Time: 11:34:54 Pat Name: HERNAN SUBRAMANIAN Department: Room: 210 1 Gender: F Glaucoma Specialist: : [id number] Requested By: SERENITY RICO Order Number: [id number] Reading MD: Measurements Intervals [place] Rate: 84 P: 56 ID: [id number] QRS: 88 QRSD: 126 T: 32 QT: 392 QTc: 467 Interpretive Statements SINUS RHYTHM LEFT ATRIAL ABNORMALITY RIGHT BUNDLE BRANCH BLOCK RVH WITH REPOLARIZATION ABNORMALITY ABNORMAL ECG RI6.01 No previous ECG available for comparison
[2017-01-13] MEDS: HYDROcodone/APAP 10/325 1 TAB TABLET PO PRN ×3 (12:25→21:15)
[2017-01-13 15:26] VITALS: BP 137/67
--- NOTE | 2017-01-13 15:47 | PDOC ---
PROGRESS NOTES Subjective Subjective She admits continued low back pain. Objective Objective Vital Signs Date Time Temp Pulse Resp B/P (MAP) Pulse Ox O2 Delivery O2 Flow Rate FiO2 01/13/17 15:26 98.4 92 18 137/67 (90) 96 Nasal Cannula 4.5 98.4 Intake and Output 01/14/17 07:00 Intake Total 660 ml Output Total 200 ml Balance 460 ml Intake Oral 10 ml IV Total 650 ml Output Urine Total 200 ml Physical Exam Physical Exam She is supine in bed after cardioversion but she did walk for 20' with roller walker with physical therapy and pain is controlled with hydrocodone. Plan Plan of Usp with home health or out patient follow up when medically stable. Comment Review of Relevant I have reviewed the following items peter (where applicable) has been applied. Medications Current Medications Hydromorphone HCl (Dilaudid) 1 mg 1X ONCE IV Last administered on 01/08/17 18 :56; Start 01/08/17 at 18:15; Stop 01/08/17 at 18:16; Status DC Ondansetron HCl (Zofran) 4 mg 1X ONCE IV Last administered on 01/08/17 18:55 ; Start 01/08/17 at 18:15; Stop 01/08/17 at 18:16; Status DC Sodium Chloride 1,000 ml @ 1,000 mls/hr 1X ONCE IV Last administered on 18:52; Start 01/08/17 at 18:15; Stop 01/08/17 at 19:14; Status DC Diltiazem HCl 125 mg/Dextrose 125 ml @ 0 mls/hr CONT PRN IV SEE I/O RECORD Last administered on 01/09/17 06:14; Start 01/08/17 at 18:15; Stop 01/11/17 at 10:43; Status DC Diltiazem HCl (Cardizem) 10 mg 1X ONCE IVP Last administered on 01/08/17 18: 53; Start 01/08/17 at 18:15; Stop 01/08/17 at 18:16; Status DC Ondansetron HCl (Zofran) 4 mg PRN Q8HRS PRN IV NAUSEA/VOMITING; Start 01/08/17 at 19:15; Stop 01/08/17 at 19:25; Status DC Fentanyl Citrate (Fentanyl 2ml Vial) 50 mcg PRN Q2HR PRN IV PAIN Last administered on 01/09/17 04:22; Start 01/08/17 at 19:15; Stop 01/09/17 at 19:14 ; Status DC Acetaminophen (Tylenol) 650 mg PRN Q4HRS PRN PO FEVER; Start 01/08/17 at 19:15 ; Stop 01/09/17 at 19:14; Status DC Nitroglycerin (Nitrostat) 0.4 mg PRN Q5MIN PRN SL CHEST PAIN; Start 01/08/17 at 19:15; Stop 01/09/17 at 19:14; Status DC Ondansetron HCl (Zofran) 4 mg PRN Q6HRS PRN IV NAUSEA/VOMITING Last administered on 01/09/17 07:22; Start 01/08/17 at 19:30; Stop 01/09/17 at 19:29 ; Status DC Cyclobenzaprine HCl (Flexeril) 10 mg TID PO Last administered on 01/09/17 09: 23; Start 01/08/17 at 21:00; Stop 01/09/17 at 11:12; Status DC Ibuprofen (Motrin) 600 mg TID PO Last administered on 01/09/17 09:24; Start at 21:00; Stop 01/09/17 at 11:12; Status DC Lidocaine (Lidoderm) 1 patch DAILY TD Last administered on 01/11/17 08:59; Start 01/08/17 at 19:30 Ondansetron HCl (Zofran) 4 mg PRN Q6HRS PRN IV NAUSEA/VOMITING; Start 01/08/17 at 19:30; Stop 01/09/17 at 19:29; Status UNV Enoxaparin Sodium (Lovenox 40mg Syringe) 40 mg Q24H SQ Last administered on 09:24; Start 01/09/17 at 09:00; Stop 01/09/17 at 10:55; Status DC Polyethylene Glycol (miraLAX PACKET) 17 gm DAILY PO Last administered on 16:49; Start 01/09/17 at 09:30 Magnesium Hydroxide (Milk Of Magnesia) 2,400 mg PRN DAILY PRN PO CONSTIPATION Last administered on 01/09/17 09:22; Start 01/09/17 at 09:00 Heparin Sodium (Porcine) (Heparin Sq) 5,000 unit Q8HRS SQ ; Start 01/09/17 at 14 :00; Stop 01/09/17 at 14:00; Status DC Cyclobenzaprine HCl (Flexeril) 10 mg PRN Q6HRS PRN PO MUSCLE SPASMS Last administered on 01/11/17 22:55; Start 01/10/17 at 09:00 Methylprednisolone (Medrol) 8 mg BID PO Last administered on 01/09/17 21:06; Start 01/09/17 at 11:30; Stop 01/09/17 at 21:01; Status DC Methylprednisolone (Medrol) 4 mg BIDPCLD PO Last administered on 01/09/17 18: 30; Start 01/09/17 at 12:30; Stop 01/09/17 at 17:31; Status DC Methylprednisolone (Medrol) 4 mg TIDPC PO Last administered on 01/10/17 18:27 ; Start 01/10/17 at 08:30; Stop 01/10/17 at 17:31; Status DC Methylprednisolone (Medrol) 8 mg QHS PO Last administered on 01/10/17 20:46; Start 01/10/17 at 21:00; Stop 01/10/17 at 21:01; Status DC Methylprednisolone (Medrol) 4 mg QIDAFTMEAL PO Last administered on 01/11/17 22:51; Start 01/11/17 at 09:00; Stop 01/11/17 at 21:01; Status DC Methylprednisolone (Medrol) 4 mg TID PO Last administered on 01/12/17 21:28; Start 01/12/17 at 09:00; Stop 01/12/17 at 21:01; Status DC Methylprednisolone (Medrol) 4 mg BID PO ; Start 01/13/17 at 09:00; Stop at 21:01 Methylprednisolone (Medrol) 4 mg DAILY PO ; Start 01/14/17 at 09:00; Stop at 09:01 Pantoprazole Sodium (Protonix) 40 mg DAILYAC PO Last administered on 01/11/17 08:53; Start 01/09/17 at 11:30 Acetaminophen/ Hydrocodone Bitart (Lortab 10/325) 1 tab PRN Q6HRS PRN PO PAIN Last administered on 01/10/17 06:47; Start 01/09/17 at 11:15; Stop 01/10/17 at 12:09; Status DC Bisacodyl (Dulcolax Supp) 10 mg PRN DAILY PRN [place] CONSTIPATION; Start 01/09/17 at 11:30 Bisacodyl (Dulcolax Tab) 10 mg DAILY PO Last administered on 01/11/17 16:49; Start 01/09/17 at 12:00 Magnesium Citrate (Citroma) 296 ml PRN 1X PRN PO CONSTIPATION Last administered on 01/09/17 15:41; Start 01/09/17 at 11:30 Apixaban (Eliquis) 5 mg BID PO Last administered on 01/11/17 09:00; Start at 14:30; Stop 01/11/17 at 10:38; Status DC Diltiazem HCl (Cardizem 24hr Cd) 120 mg DAILY PO Last administered on 08:59; Start 01/09/17 at 14:30; Stop 01/11/17 at 10:43; Status DC Info (Anti-Coagulation Monitoring By Pharmacy) 1 each PRN DAILY PRN MC SEE COMMENTS Last administered on 01/13/17 09:53; Start 01/09/17 at 14:00 Simvastatin (Zocor) 40 mg QHS PO Last administered on 01/10/17 20:46; Start at 21:00; Stop 01/11/17 at 10:45; Status DC Losartan Potassium (Cozaar) 100 mg DAILY PO Last administered on 01/11/17 09: 00; Start 01/10/17 at 09:00; Stop 01/11/17 at 10:43; Status DC Sertraline HCl (Zoloft) 100 mg DAILY PO Last administered on 01/11/17 08:54; Start 01/10/17 at 09:00 Hydrochlorothiazide (Hydrodiuril) 25 mg DAILY PO Last administered on 08:36; Start 01/10/17 at 09:00 Sertraline HCl (Zoloft) 100 mg 1X ONCE PO Last administered on 01/09/17 21:07 ; Start 01/09/17 at 21:00; Stop 01/09/17 at 21:01; Status DC Acetaminophen/ Hydrocodone Bitart (Lortab 10/325) 1 tab PRN Q4HRS PRN PO PAIN Last administered on 01/13/17 12:25; Start 01/10/17 at 12:15 Aspirin (Ecotrin) 325 mg 1X ONCE PO Last administered on 01/11/17 11:34; Start 01/11/17 at 10:45; Stop 01/11/17 at 10:46; Status DC Diltiazem HCl (Cardizem 24hr Cd) 240 mg DAILY PO Last administered on 08:35; Start 01/12/17 at 09:00 Losartan Potassium (Cozaar) 50 mg DAILY PO Last administered on 01/12/17 08:36 ; Start 01/12/17 at 09:00 Atorvastatin Calcium (Lipitor) 20 mg QHS PO Last administered on 01/12/17 21: 28; Start 01/11/17 at 21:00 Morphine Sulfate 2 mg PRN Q4HRS PRN IV PAIN SEVERE; Start 01/11/17 at 20:15 Ondansetron HCl (Zofran) 4 mg PRN Q6HRS PRN IV NAUSEA/VOMITING; Start 01/13/17 at 07:00; Stop 01/14/17 at 06:59 Fentanyl Citrate (Fentanyl 2ml Vial) 25 mcg PRN Q5MIN PRN IV MILD PAIN; Start 01/13/17 at 07:00; Stop 01/14/17 at 06:59 Fentanyl Citrate (Fentanyl 2ml Vial) 50 mcg PRN Q5MIN PRN IV MODERATE PAIN Last administered on 01/13/17 11:48; Start 01/13/17 at 07:00; Stop 01/14/17 at 06:59 Morphine Sulfate 1 mg PRN Q10MIN PRN IV SEVERE PAIN; Start 01/13/17 at 07:00; Stop 01/14/17 at 06:59 Ringer's Solution 1,000 ml @ 30 mls/hr Q24H IV Last administered on 01/13/17 10:05; Start 01/13/17 at 07:00; Stop 01/13/17 at 18:59 Lidocaine HCl (Xylocaine-Mpf 1% Vial) 2 ml PRN 1X PRN ID IV START Last administered on 01/13/17 10:08; Start 01/13/17 at 07:00; Stop 01/14/17 at 06:59 Hydromorphone HCl (Dilaudid) 0.5 mg PRN Q10MIN PRN IV SEV PAIN, Second choice; Start 01/13/17 at 07:00; Stop 01/14/17 at 06:59 Prochlorperazine Edisylate (Compazine) 5 mg PACU PRN PRN IV NAUSEA, MRX1; Start 01/13/17 at 07:00; Stop 01/14/17 at 06:59 Lidocaine/Sodium Bicarbonate (Buffered Lidocaine 1%) 20 ml STK-MED ONCE IJ ; Start 01/12/17 at 10:24; Stop 01/12/17 at 10:25; Status DC Iohexol (Omnipaque 300 Mg/ml) 50 ml STK-MED ONCE .ROUTE ; Start 01/12/17 at 10: 26; Stop 01/12/17 at 10:27; Status DC Midazolam HCl (Versed) 5 mg STK-MED ONCE .ROUTE ; Start 01/12/17 at 10:44; Stop 01/12/17 at 10:45; Status DC Fentanyl Citrate (Fentanyl 5ml Vial) 250 mcg STK-MED ONCE .ROUTE ; Start at 10:44; Stop 01/12/17 at 10:45; Status DC Cefazolin Sodium/ Dextrose 50 ml @ As Directed STK-MED ONCE IV ; Start 01/12/17 at 10:45; Stop 01/12/17 at 10:46; Status DC Lidocaine/Sodium Bicarbonate (Buffered Lidocaine 1%) 20 ml 1X ONCE IJ Last administered on 01/12/17 11:40; Start 01/12/17 at 11:15; Stop 01/12/17 at 11:20 ; Status DC Midazolam HCl (Versed) 5 mg 1X ONCE IV Last administered on 01/12/17 11:41; Start 01/12/17 at 11:15; Stop 01/12/17 at 11:20; Status DC Fentanyl Citrate (Fentanyl 5ml Vial) 250 mcg 1X ONCE IV Last administered on 01/12/17 11:45; Start 01/12/17 at 11:15; Stop 01/12/17 at 11:20; Status DC Iohexol (Omnipaque 300 Mg/ml) 50 ml 1X ONCE IART Last administered on 11:45; Start 01/12/17 at 11:15; Stop 01/12/17 at 11:20; Status DC Cefazolin Sodium/ Dextrose 50 ml @ 100 mls/hr 1X ONCE IV Last administered on 01/12/17 11:04; Start 01/12/17 at 11:15; Stop 01/12/17 at 11:44; Status DC Apixaban (Eliquis) 5 mg BID PO Last administered on 01/13/17 08:38; Start 01/12/17 at 21:00 Lidocaine HCl (Xylocaine 2% Topical 30gm Tube) 1 qamar 1X ONCE TP Last administered on 01/13/17 10:24; Start 01/13/17 at 10:15; Stop 01/13/17 at 10:20 ; Status DC Benzocaine (Hurricaine One) 2 spray 1X ONCE MM Last administered on 01/13/17 10:24; Start 01/13/17 at 10:15; Stop 01/13/17 at 10:20; Status DC Lidocaine HCl (Viscous Lidocaine) 15 ml 1X ONCE SWSW Last administered on 01/13 10:25; Start 01/13/17 at 10:15; Stop 01/13/17 at 10:20; Status DC Propofol 20 ml @ As Directed STK-MED ONCE IV ; Start 01/13/17 at 11:10; Stop at 11:11; Status DC Active Scripts Active Reported Colace (Docusate Sodium) 100 Mg Capsule 100 Mg PO BID PRN Hydrocodone-Apap 5-325 (Hydrocodone Bit/Acetaminophen) 1 Each Tablet 1 Tab PO PRN Q6HRS PRN Cyclobenzaprine Hcl 10 Mg Tablet 1 Tab PO TID Ibuprofen 600 Mg Tablet 600 Mg PO PRN Q6HRS PRN Simvastatin 40 Mg Tablet 1 Tab PO QHS Losartan-Hctz 100-25 Mg Tab (Losartan/Hydrochlorothiazide) 1 Each Tablet 1 Tab PO DAILY Zoloft (Sertraline Hcl) 100 Mg Tablet 1 Tab PO DAILY Vitals/I & O Vital Sign - Last 24 Hours 01/12/17 01/12/17 01/12/17 01/12/17 19:40 19:50 22:45 22:55 Temp 98.4 98.6 98.4 98.6 Pulse 111 100 Resp 16 16 B/P (MAP) 138/79 (98) 137/78 (97) Pulse Ox 97 98 O2 Delivery Nasal Cannula Nasal Cannula Nasal Cannula Nasal Cannula O2 Flow Rate 2.0 4.5 4.5 2.0 01/13/17 01/13/17 01/13/17 01/13/17 02:44 07:15 08:00 10:33 Temp 97.7 98.3 97.5 97.7 98.3 97.5 Pulse 101 105 90 Resp 16 20 20 B/P (MAP) 134/78 (96) 135/94 (108) 113/94 Pulse Ox 96 96 91 O2 Delivery Nasal Cannula Nasal Cannula Nasal Cannula Room Air O2 Flow Rate 4.5 4.5 2.0 01/13/17 01/13/17 01/13/17 01/13/17 11:06 11:06 11:21 11:27 Temp 97.5 97.5 Pulse 90 88 Resp 22 20 20 B/P (MAP) 104/60 64/ Pulse Ox 96 96 96 O2 Delivery Nasal Cannula Nasal Cannula Nasal Cannula Nasal Cannula O2 Flow Rate 3 3 3.0 01/13/17 01/13/17 01/13/17 01/13/17 11:46 11:48 12:25 13:30 Temp 97.5 97.5 Pulse 90 Resp 20 20 B/P (MAP) 112/58 Pulse Ox 96 96 O2 Delivery Nasal Cannula Nasal Cannula Nasal Cannula Nasal Cannula O2 Flow Rate 2 2.0 2.0 2.0 01/13/17 15:26 Temp 98.4 98.4 Pulse 92 Resp 18 B/P (MAP) 137/67 (90) Pulse Ox 96 O2 Delivery Nasal Cannula O2 Flow Rate 4.5 Intake and Output 01/13/17 01/13/17 01/14/17 15:00 23:00 07:00 Intake Total 660 ml Output Total 200 ml Balance 460 ml LOYDA ELLER MD Jan 13, 2017 15:46
--- NOTE | 2017-01-13 16:50 | CARD ---
APPROVED REPORT EXAM: Transesophageal echocardiogram with color flow Doppler and Synchronized Cardioversion. Reason For Test : Rule out cardiac source of emboli. PROCEDURE After obtaining informed consent, patient underwent transesophageal echo in the PACU. Type of Sedation : General Anesthesia Sedation was provided by anesthesiologist, see EMR for medications administered. Sedation was achieved with Propofol 180mg intravenously. Transesophageal probe was inserted and advanced into esophagus by Reji Julien MD. The MCKAYLA was performed without complications. Synchronized Cardioversion acheived with 200 Joules after 1 attempt(s). Rhythm following Synchronized Cardioversion: Normal Sinus Rhythm Throughout the procedure, the blood pressure, pulse oximetry, cardiac rhythm, and rate were monitored . The patient tolerated the procedure without adverse effects. Recovery from conscious sedation was une ventful and vital signs were stable. LEFT VENTRICLE The left ventricle is normal size. There is normal left ventricular wall thickness. Left ventricle sy stolic function is normal. The Ejection Fraction is 55-60%. There is normal LV segmental wall motion. RIGHT VENTRICLE The right ventricle is normal size. The right ventricular systolic function is normal. ATRIA The left atrium size is normal. The right atrium size is normal. The interatrial septum is intact wit h no evidence for an atrial septal defect or patent foramen ovale as noted on 2-D or Doppler imaging. There is no thrombus noted in the left atrial appendage. AORTIC VALVE The aortic valve is normal in structure and function. The aortic valve is trileaflet. Doppler and Col or Flow revealed no significant aortic regurgitation. MITRAL VALVE The mitral valve is normal in structure and function. There is no evidence of mitral valve prolapse. Doppler and Color Flow revealed no mitral valve regurgitation noted. TRICUSPID VALVE The tricuspid valve is normal in structure and function. Doppler and Color Flow revealed no tricuspid valve regurgitation noted. There is no tricuspid valve stenosis. PULMONIC VALVE The pulmonic valve is not well visualized. Doppler and Color Flow revealed no pulmonic valvular regur gitation. GREAT VESSELS The aortic root is normal in size. The ascending aorta is normal in size. The IVC was visualized and appears normal in size. The SVC was visualized and appears normal in size. PERICARDIAL EFFUSION There is no evidence of significant pericardial effusion. Critical Notification Critical Value: No <Conclusion> There is no thrombus noted in the left atrial appendage. Left ventricle systolic function is normal. The Ejection Fraction is 55-60%. Successful cardioversion to SR with 200 J shock.
[2017-01-13 19:55] VITALS: BP 125/86
[2017-01-13] MEDS: ATORVASTATIN CALCIUM 20 MG TABLET PO SCH (21:14)
[2017-01-13] MEDS: AMIODARONE HCL 200 MG TABLET. PO SCH (21:16)
[2017-01-13 23:35] VITALS: BP 142/67
[2017-01-14 02:03] VITALS: BP 125/83
[2017-01-14 07:00] VITALS: BP 159/84
[2017-01-14] MEDS: HYDROcodone/APAP 10/325 1 TAB TABLET PO PRN ×4 (08:39→20:15)
[2017-01-14] MEDS: CYCLOBENZAPRINE 10 MG TABLET. PO PRN (08:39)
[2017-01-14] MEDS: PANTOPRAZOLE 40 MG TABLET.DR. PO SCH (08:41)
[2017-01-14] MEDS: POLYETHYLENE GLYCOL 3350 17 GM PACKET. PO SCH (08:44)
[2017-01-14] MEDS: hydroCHLOROthiazide 25 MG TABLET PO SCH (08:45)
[2017-01-14] MEDS: SERTRALINE 50 MG TABLET. PO SCH (08:45)
[2017-01-14] MEDS: LIDOCAINE (700MG/PATCH) PATCH. TD SCH (08:45)
[2017-01-14] MEDS: BISACODYL 5 MG TABLET.DR. PO SCH (08:45)
[2017-01-14] MEDS: APIXABAN 5 MG TABLET. PO SCH ×2 (08:46→20:15)
[2017-01-14] MEDS: AMIODARONE HCL 200 MG TABLET. PO SCH ×2 (08:49→20:15)
[2017-01-14] MEDS: LOSARTAN POTASSIUM 50 MG TABLET. PO SCH (08:52)
[2017-01-14] MEDS ORDERED: methylPREDNISolone 4 MG TABLET. PO SCH (09:00)
--- NOTE | 2017-01-14 10:55 | PDOC ---
DANAY JHAVERI AUDIO SPECIALIST 01/14/17 1055: CARDIO Progress Notes Date and Time Date of Service 01/14/2017 Time of Evaluation 1040 Subjective Subjective: No Chest Pain, No shortness of breath, No Palpitations, Other ( stillhas back pain) Vitals Vitals Vital Signs Date Time Temp Pulse Resp B/P (MAP) Pulse Ox O2 Delivery O2 Flow Rate FiO2 01/14/17 09:39 18 94 Nasal Cannula 2.0 01/14/17 08:52 95 159/84 01/14/17 07:00 98.0 98.0 Weight Weight [ ] Physical Exam HEENT: Neck Supple W Full Motion Chest: Symmetric LUNGS: Clear to Auscultation Heart: S1S2, irregularly irregular (Atrial flutter with variable conduction) Abdomen: Soft N/T Extremities: No Calf Tenderness Neurology: alert, oriented, follow commands Assessment Assessment 1. New onset atrial fibrillation: S/P MCKAYLA/CVN with conversion to SR. Pt is now on atrial flutter with variable conduction rate controlled 2. Morbid obesity 3. Intractable back pain: S/P kyphoplasty, still has some back pain. 4. HTN: mildly labile likely from pain 5. HLP; on statin 6. ROSANNE; has been off her CPAP for 3 weeks due to mask problem and its on order. Recommendations 1. EF normal with normal wall motion, No JEMIMA thrombus via MCKAYLA. Continue with eliquis and cardizem. Amiodarone on board 2. Follow up in office in 4 weeks. If no conversion at that time then will consider referring to EP for ablation. 3. Will also consider for MPI as an outpt for further risk stratification 4. Continue with pain management per PCP SERENITY RICO MD 01/14/17 1141: CARDIO Progress Notes Plan Plan Pt. seen and examined. Continue anticoagulation. Plan for repeat MCKAYLA/CVN in 4 weeks if still in afib. Amiodarone/Dilt for rate control. Outpt MPI. Ok to DC from CV perspective. Pls call with questions. DANAY JHAVERI APRN Jan 14, 2017 10:55 SERENITY RICO MD Jan 14, 2017 11:41
[2017-01-14 11:00] VITALS: BP 129/69
--- NOTE | 2017-01-14 12:15 | PDOC ---
PROGRESS NOTES Subjective Subjective She admits continued low back pain with mobility and tiredness feeling today. Objective Objective Vital Signs Date Time Temp Pulse Resp B/P (MAP) Pulse Ox O2 Delivery O2 Flow Rate FiO2 01/14/17 09:39 18 94 Nasal Cannula 2.0 01/14/17 08:52 95 159/84 01/14/17 07:00 98.0 98.0 Physical Exam Physical Exam She is sitting up in bedside chair and seems to be in moderate distress form low back pain with tenderness to palpation lumbar area and painfully limited lumbar spine ROM Plan Plan of Longterm hopefully with home health follow up tomorrow if medically stable and to consider transfer to SNF for a short stay if needed. Comment Review of Relevant I have reviewed the following items peter (where applicable) has been applied. Medications Current Medications Hydromorphone HCl (Dilaudid) 1 mg 1X ONCE IV Last administered on 01/08/17 18 :56; Start 01/08/17 at 18:15; Stop 01/08/17 at 18:16; Status DC Ondansetron HCl (Zofran) 4 mg 1X ONCE IV Last administered on 01/08/17 18:55 ; Start 01/08/17 at 18:15; Stop 01/08/17 at 18:16; Status DC Sodium Chloride 1,000 ml @ 1,000 mls/hr 1X ONCE IV Last administered on 18:52; Start 01/08/17 at 18:15; Stop 01/08/17 at 19:14; Status DC Diltiazem HCl 125 mg/Dextrose 125 ml @ 0 mls/hr CONT PRN IV SEE I/O RECORD Last administered on 01/09/17 06:14; Start 01/08/17 at 18:15; Stop 01/11/17 at 10:43; Status DC Diltiazem HCl (Cardizem) 10 mg 1X ONCE IVP Last administered on 01/08/17 18: 53; Start 01/08/17 at 18:15; Stop 01/08/17 at 18:16; Status DC Ondansetron HCl (Zofran) 4 mg PRN Q8HRS PRN IV NAUSEA/VOMITING; Start 01/08/17 at 19:15; Stop 01/08/17 at 19:25; Status DC Fentanyl Citrate (Fentanyl 2ml Vial) 50 mcg PRN Q2HR PRN IV PAIN Last administered on 01/09/17 04:22; Start 01/08/17 at 19:15; Stop 01/09/17 at 19:14 ; Status DC Acetaminophen (Tylenol) 650 mg PRN Q4HRS PRN PO FEVER; Start 01/08/17 at 19:15 ; Stop 01/09/17 at 19:14; Status DC Nitroglycerin (Nitrostat) 0.4 mg PRN Q5MIN PRN SL CHEST PAIN; Start 01/08/17 at 19:15; Stop 01/09/17 at 19:14; Status DC Ondansetron HCl (Zofran) 4 mg PRN Q6HRS PRN IV NAUSEA/VOMITING Last administered on 01/09/17 07:22; Start 01/08/17 at 19:30; Stop 01/09/17 at 19:29 ; Status DC Cyclobenzaprine HCl (Flexeril) 10 mg TID PO Last administered on 01/09/17 09: 23; Start 01/08/17 at 21:00; Stop 01/09/17 at 11:12; Status DC Ibuprofen (Motrin) 600 mg TID PO Last administered on 01/09/17 09:24; Start at 21:00; Stop 01/09/17 at 11:12; Status DC Lidocaine (Lidoderm) 1 patch DAILY TD Last administered on 01/14/17 08:45; Start 01/08/17 at 19:30 Ondansetron HCl (Zofran) 4 mg PRN Q6HRS PRN IV NAUSEA/VOMITING; Start 01/08/17 at 19:30; Stop 01/09/17 at 19:29; Status UNV Enoxaparin Sodium (Lovenox 40mg Syringe) 40 mg Q24H SQ Last administered on 09:24; Start 01/09/17 at 09:00; Stop 01/09/17 at 10:55; Status DC Polyethylene Glycol (miraLAX PACKET) 17 gm DAILY PO Last administered on 08:44; Start 01/09/17 at 09:30 Magnesium Hydroxide (Milk Of Magnesia) 2,400 mg PRN DAILY PRN PO CONSTIPATION Last administered on 01/09/17 09:22; Start 01/09/17 at 09:00 Heparin Sodium (Porcine) (Heparin Sq) 5,000 unit Q8HRS SQ ; Start 01/09/17 at 14 :00; Stop 01/09/17 at 14:00; Status DC Cyclobenzaprine HCl (Flexeril) 10 mg PRN Q6HRS PRN PO MUSCLE SPASMS Last administered on 01/14/17 08:39; Start 01/10/17 at 09:00 Methylprednisolone (Medrol) 8 mg BID PO Last administered on 01/09/17 21:06; Start 01/09/17 at 11:30; Stop 01/09/17 at 21:01; Status DC Methylprednisolone (Medrol) 4 mg BIDPCLD PO Last administered on 01/09/17 18: 30; Start 01/09/17 at 12:30; Stop 01/09/17 at 17:31; Status DC Methylprednisolone (Medrol) 4 mg TIDPC PO Last administered on 01/10/17 18:27 ; Start 01/10/17 at 08:30; Stop 01/10/17 at 17:31; Status DC Methylprednisolone (Medrol) 8 mg QHS PO Last administered on 01/10/17 20:46; Start 01/10/17 at 21:00; Stop 01/10/17 at 21:01; Status DC Methylprednisolone (Medrol) 4 mg QIDAFTMEAL PO Last administered on 01/11/17 22:51; Start 01/11/17 at 09:00; Stop 01/11/17 at 21:01; Status DC Methylprednisolone (Medrol) 4 mg TID PO Last administered on 01/12/17 21:28; Start 01/12/17 at 09:00; Stop 01/12/17 at 21:01; Status DC Methylprednisolone (Medrol) 4 mg BID PO Last administered on 01/13/17 21:16; Start 01/13/17 at 09:00; Stop 01/13/17 at 21:01; Status DC Methylprednisolone (Medrol) 4 mg DAILY PO Last administered on 01/14/17 08:45 ; Start 01/14/17 at 09:00; Stop 01/14/17 at 09:01; Status DC Pantoprazole Sodium (Protonix) 40 mg DAILYAC PO Last administered on 01/14/17 08:41; Start 01/09/17 at 11:30 Acetaminophen/ Hydrocodone Bitart (Lortab 10/325) 1 tab PRN Q6HRS PRN PO PAIN Last administered on 01/10/17 06:47; Start 01/09/17 at 11:15; Stop 01/10/17 at 12:09; Status DC Bisacodyl (Dulcolax Supp) 10 mg PRN DAILY PRN MD CONSTIPATION; Start 01/09/17 at 11:30 Bisacodyl (Dulcolax Tab) 10 mg DAILY PO Last administered on 01/14/17 08:45; Start 01/09/17 at 12:00 Magnesium Citrate (Citroma) 296 ml PRN 1X PRN PO CONSTIPATION Last administered on 01/09/17 15:41; Start 01/09/17 at 11:30 Apixaban (Eliquis) 5 mg BID PO Last administered on 01/11/17 09:00; Start at 14:30; Stop 01/11/17 at 10:38; Status DC Diltiazem HCl (Cardizem 24hr Cd) 120 mg DAILY PO Last administered on 08:59; Start 01/09/17 at 14:30; Stop 01/11/17 at 10:43; Status DC Info (Anti-Coagulation Monitoring By Pharmacy) 1 each PRN DAILY PRN MC SEE COMMENTS Last administered on 01/13/17 09:53; Start 01/09/17 at 14:00 Simvastatin (Zocor) 40 mg QHS PO Last administered on 01/10/17 20:46; Start at 21:00; Stop 01/11/17 at 10:45; Status DC Losartan Potassium (Cozaar) 100 mg DAILY PO Last administered on 01/11/17 09: 00; Start 01/10/17 at 09:00; Stop 01/11/17 at 10:43; Status DC Sertraline HCl (Zoloft) 100 mg DAILY PO Last administered on 01/14/17 08:45; Start 01/10/17 at 09:00 Hydrochlorothiazide (Hydrodiuril) 25 mg DAILY PO Last administered on 08:45; Start 01/10/17 at 09:00 Sertraline HCl (Zoloft) 100 mg 1X ONCE PO Last administered on 01/09/17 21:07 ; Start 01/09/17 at 21:00; Stop 01/09/17 at 21:01; Status DC Acetaminophen/ Hydrocodone Bitart (Lortab 10/325) 1 tab PRN Q4HRS PRN PO PAIN Last administered on 01/14/17 08:39; Start 01/10/17 at 12:15 Aspirin (Ecotrin) 325 mg 1X ONCE PO Last administered on 01/11/17 11:34; Start 01/11/17 at 10:45; Stop 01/11/17 at 10:46; Status DC Diltiazem HCl (Cardizem 24hr Cd) 240 mg DAILY PO Last administered on 08:44; Start 01/12/17 at 09:00 Losartan Potassium (Cozaar) 50 mg DAILY PO Last administered on 01/14/17 08:52 ; Start 01/12/17 at 09:00 Atorvastatin Calcium (Lipitor) 20 mg QHS PO Last administered on 01/13/17 21: 14; Start 01/11/17 at 21:00 Morphine Sulfate 2 mg PRN Q4HRS PRN IV PAIN SEVERE; Start 01/11/17 at 20:15 Ondansetron HCl (Zofran) 4 mg PRN Q6HRS PRN IV NAUSEA/VOMITING; Start 01/13/17 at 07:00; Stop 01/14/17 at 06:59; Status DC Fentanyl Citrate (Fentanyl 2ml Vial) 25 mcg PRN Q5MIN PRN IV MILD PAIN; Start 01/13/17 at 07:00; Stop 01/14/17 at 06:59; Status DC Fentanyl Citrate (Fentanyl 2ml Vial) 50 mcg PRN Q5MIN PRN IV MODERATE PAIN Last administered on 01/13/17 11:48; Start 01/13/17 at 07:00; Stop 01/14/17 at 06:59; Status DC Morphine Sulfate 1 mg PRN Q10MIN PRN IV SEVERE PAIN; Start 01/13/17 at 07:00; Stop 01/14/17 at 06:59; Status DC Ringer's Solution 1,000 ml @ 30 mls/hr Q24H IV Last administered on 10/4/17at 10:05; Start 01/13/17 at 07:00; Stop 01/13/17 at 18:59; Status DC Lidocaine HCl (Xylocaine-Mpf 1% Vial) 2 ml PRN 1X PRN ID IV START Last administered on 01/13/17 10:08; Start 01/13/17 at 07:00; Stop 01/14/17 at 06:59 ; Status DC Hydromorphone HCl (Dilaudid) 0.5 mg PRN Q10MIN PRN IV SEV PAIN, Second choice; Start 01/13/17 at 07:00; Stop 01/14/17 at 06:59; Status DC Prochlorperazine Edisylate (Compazine) 5 mg PACU PRN PRN IV NAUSEA, MRX1; Start 01/13/17 at 07:00; Stop 01/14/17 at 06:59; Status DC Lidocaine/Sodium Bicarbonate (Buffered Lidocaine 1%) 20 ml STK-MED ONCE IJ ; Start 01/12/17 at 10:24; Stop 01/12/17 at 10:25; Status DC Iohexol (Omnipaque 300 Mg/ml) 50 ml STK-MED ONCE .ROUTE ; Start 01/12/17 at 10: 26; Stop 01/12/17 at 10:27; Status DC Midazolam HCl (Versed) 5 mg STK-MED ONCE .ROUTE ; Start 01/12/17 at 10:44; Stop 01/12/17 at 10:45; Status DC Fentanyl Citrate (Fentanyl 5ml Vial) 250 mcg STK-MED ONCE .ROUTE ; Start at 10:44; Stop 01/12/17 at 10:45; Status DC Cefazolin Sodium/ Dextrose 50 ml @ As Directed STK-MED ONCE IV ; Start 01/12/17 at 10:45; Stop 01/12/17 at 10:46; Status DC Lidocaine/Sodium Bicarbonate (Buffered Lidocaine 1%) 20 ml 1X ONCE IJ Last administered on 01/12/17 11:40; Start 01/12/17 at 11:15; Stop 01/12/17 at 11:20 ; Status DC Midazolam HCl (Versed) 5 mg 1X ONCE IV Last administered on 01/12/17 11:41; Start 01/12/17 at 11:15; Stop 01/12/17 at 11:20; Status DC Fentanyl Citrate (Fentanyl 5ml Vial) 250 mcg 1X ONCE IV Last administered on 01/12/17 11:45; Start 01/12/17 at 11:15; Stop 01/12/17 at 11:20; Status DC Iohexol (Omnipaque 300 Mg/ml) 50 ml 1X ONCE IART Last administered on 11:45; Start 01/12/17 at 11:15; Stop 01/12/17 at 11:20; Status DC Cefazolin Sodium/ Dextrose 50 ml @ 100 mls/hr 1X ONCE IV Last administered on 01/12/17 11:04; Start 01/12/17 at 11:15; Stop 01/12/17 at 11:44; Status DC Apixaban (Eliquis) 5 mg BID PO Last administered on 01/14/17 08:46; Start 01/12/17 at 21:00 Lidocaine HCl (Xylocaine 2% Topical 30gm Tube) 1 qamar 1X ONCE TP Last administered on 01/13/17 10:24; Start 01/13/17 at 10:15; Stop 01/13/17 at 10:20 ; Status DC Benzocaine (Hurricaine One) 2 spray 1X ONCE MM Last administered on 01/13/17 10:24; Start 01/13/17 at 10:15; Stop 01/13/17 at 10:20; Status DC Lidocaine HCl (Viscous Lidocaine) 15 ml 1X ONCE SWSW Last administered on 01/13 10:25; Start 01/13/17 at 10:15; Stop 01/13/17 at 10:20; Status DC Propofol 20 ml @ As Directed STK-MED ONCE IV ; Start 01/13/17 at 11:10; Stop at 11:11; Status DC Amiodarone HCl (Cordarone) 200 mg BID PO Last administered on 01/14/17 08:49; Start 01/13/17 at 21:00 Active Scripts Active Reported Colace (Docusate Sodium) 100 Mg Capsule 100 Mg PO BID PRN Hydrocodone-Apap 5-325 (Hydrocodone Bit/Acetaminophen) 1 Each Tablet 1 Tab PO PRN Q6HRS PRN Cyclobenzaprine Hcl 10 Mg Tablet 1 Tab PO TID Ibuprofen 600 Mg Tablet 600 Mg PO PRN Q6HRS PRN Simvastatin 40 Mg Tablet 1 Tab PO QHS Losartan-Hctz 100-25 Mg Tab (Losartan/Hydrochlorothiazide) 1 Each Tablet 1 Tab PO DAILY Zoloft (Sertraline Hcl) 100 Mg Tablet 1 Tab PO DAILY Vitals/I & O Vital Sign - Last 24 Hours 01/13/17 01/13/17 01/13/17 01/13/17 12:25 15:26 17:30 17:35 Temp 98.4 98.4 Pulse 92 122 Resp 18 B/P (MAP) 137/67 (90) 137/67 Pulse Ox 96 O2 Delivery Nasal Cannula Nasal Cannula Nasal Cannula O2 Flow Rate 2.0 4.5 2.0 01/13/17 01/13/17 01/13/17 01/13/17 19:55 20:00 21:15 21:16 Temp 98.0 98.0 Pulse 104 110 Resp 20 18 B/P (MAP) 125/86 (99) 125/86 Pulse Ox 96 96 O2 Delivery Nasal Cannula Nasal Cannula Nasal Cannula O2 Flow Rate 2.0 2.0 2.0 01/13/17 01/14/17 01/14/17 01/14/17 23:35 02:03 07:00 08:00 Temp 97.3 98.0 98.0 97.3 98.0 98.0 Pulse 100 96 101 Resp 18 18 18 B/P (MAP) 142/67 (92) 125/83 (97) 159/84 (109) Pulse Ox 96 94 95 O2 Delivery Nasal Cannula Nasal Cannula Nasal Cannula Nasal Cannula O2 Flow Rate 2.0 2.0 2.0 2.0 01/14/17 01/14/17 01/14/17 01/14/17 08:39 08:44 08:49 08:52 Pulse 112 121 95 Resp 18 B/P (MAP) 159/84 159/84 159/84 Pulse Ox 94 O2 Delivery Nasal Cannula O2 Flow Rate 2.0 01/14/17 09:39 Resp 18 Pulse Ox 94 O2 Delivery Nasal Cannula O2 Flow Rate 2.0 LOYDA ELLER MD Jan 14, 2017 12:15
[2017-01-14] MEDS ORDERED: traMADol 50 MG TABLET PO PRN (13:30)
[2017-01-14] MEDS ORDERED: traMADol 50 MG TABLET PO ONE (13:30)
--- NOTE | 2017-01-14 13:32 | PDOC ---
PROGRESS NOTES Chief Complaint Chief Complaint 1. New atrial fib/flutter RVR s/p MCKAYLA no thrombus planned for OP cardioversion 4 weeks 2. Obesity BMI 36 3. Recent fall with back injury 4. Acute back pain no resolve with PO pain meds 5. HTN, dyslipidemia - chronic stable 6. Ex smoker - quit 30 yrs ago 7. Disc Bulge 2, L2 compression fx L1, recent - s/p kyphoplasty 01/12/17 History of Present Illness History of Present Illness Still back pain Goes into tears CAnt start NSAID, is on AC for planned MCKAYLA as OP MCKAYLA no thrombus PLAn: add tramadol prn Wants to go home no rehab or SNU on dc - worried about payment despite my explanation and education/ Counselling heavy today Vitals Vitals Vital Signs Date Time Temp Pulse Resp B/P (MAP) Pulse Ox O2 Delivery O2 Flow Rate FiO2 01/14/17 12:37 16 Nasal Cannula 2.0 01/14/17 11:00 97.4 88 129/69 (89) 95 97.4 Physical Exam General: Alert, Oriented X3, Cooperative, No acute distress Heart: Regular rate Lungs: Clear Abdomen: Normal bowel sounds, Soft, No tenderness, No hepatosplenomegaly, No masses Extremities: No clubbing, No cyanosis, No edema, Normal pulses, No tenderness/ swelling Skin: No rashes, No breakdown, No significant lesion Review of Systems Review of Systems back pain Comment Review of Relevant I have reviewed the following items peter (where applicable) has been applied. Medications Current Medications Hydromorphone HCl (Dilaudid) 1 mg 1X ONCE IV Last administered on 01/08/17 18 :56; Start 01/08/17 at 18:15; Stop 01/08/17 at 18:16; Status DC Ondansetron HCl (Zofran) 4 mg 1X ONCE IV Last administered on 01/08/17 18:55 ; Start 01/08/17 at 18:15; Stop 01/08/17 at 18:16; Status DC Sodium Chloride 1,000 ml @ 1,000 mls/hr 1X ONCE IV Last administered on 18:52; Start 01/08/17 at 18:15; Stop 01/08/17 at 19:14; Status DC Diltiazem HCl 125 mg/Dextrose 125 ml @ 0 mls/hr CONT PRN IV SEE I/O RECORD Last administered on 01/09/17 06:14; Start 01/08/17 at 18:15; Stop 01/11/17 at 10:43; Status DC Diltiazem HCl (Cardizem) 10 mg 1X ONCE IVP Last administered on 01/08/17 18: 53; Start 01/08/17 at 18:15; Stop 01/08/17 at 18:16; Status DC Ondansetron HCl (Zofran) 4 mg PRN Q8HRS PRN IV NAUSEA/VOMITING; Start 01/08/17 at 19:15; Stop 01/08/17 at 19:25; Status DC Fentanyl Citrate (Fentanyl 2ml Vial) 50 mcg PRN Q2HR PRN IV PAIN Last administered on 01/09/17 04:22; Start 01/08/17 at 19:15; Stop 01/09/17 at 19:14 ; Status DC Acetaminophen (Tylenol) 650 mg PRN Q4HRS PRN PO FEVER; Start 01/08/17 at 19:15 ; Stop 01/09/17 at 19:14; Status DC Nitroglycerin (Nitrostat) 0.4 mg PRN Q5MIN PRN SL CHEST PAIN; Start 01/08/17 at 19:15; Stop 01/09/17 at 19:14; Status DC Ondansetron HCl (Zofran) 4 mg PRN Q6HRS PRN IV NAUSEA/VOMITING Last administered on 01/09/17 07:22; Start 01/08/17 at 19:30; Stop 01/09/17 at 19:29 ; Status DC Cyclobenzaprine HCl (Flexeril) 10 mg TID PO Last administered on 01/09/17 09: 23; Start 01/08/17 at 21:00; Stop 01/09/17 at 11:12; Status DC Ibuprofen (Motrin) 600 mg TID PO Last administered on 01/09/17 09:24; Start at 21:00; Stop 01/09/17 at 11:12; Status DC Lidocaine (Lidoderm) 1 patch DAILY TD Last administered on 01/14/17 08:45; Start 01/08/17 at 19:30 Ondansetron HCl (Zofran) 4 mg PRN Q6HRS PRN IV NAUSEA/VOMITING; Start 01/08/17 at 19:30; Stop 01/09/17 at 19:29; Status UNV Enoxaparin Sodium (Lovenox 40mg Syringe) 40 mg Q24H SQ Last administered on 09:24; Start 01/09/17 at 09:00; Stop 01/09/17 at 10:55; Status DC Polyethylene Glycol (miraLAX PACKET) 17 gm DAILY PO Last administered on 08:44; Start 01/09/17 at 09:30 Magnesium Hydroxide (Milk Of Magnesia) 2,400 mg PRN DAILY PRN PO CONSTIPATION Last administered on 01/09/17 09:22; Start 01/09/17 at 09:00 Heparin Sodium (Porcine) (Heparin Sq) 5,000 unit Q8HRS SQ ; Start 01/09/17 at 14 :00; Stop 01/09/17 at 14:00; Status DC Cyclobenzaprine HCl (Flexeril) 10 mg PRN Q6HRS PRN PO MUSCLE SPASMS Last administered on 01/14/17 08:39; Start 01/10/17 at 09:00 Methylprednisolone (Medrol) 8 mg BID PO Last administered on 01/09/17 21:06; Start 01/09/17 at 11:30; Stop 01/09/17 at 21:01; Status DC Methylprednisolone (Medrol) 4 mg BIDPCLD PO Last administered on 01/09/17 18: 30; Start 01/09/17 at 12:30; Stop 01/09/17 at 17:31; Status DC Methylprednisolone (Medrol) 4 mg TIDPC PO Last administered on 01/10/17 18:27 ; Start 01/10/17 at 08:30; Stop 01/10/17 at 17:31; Status DC Methylprednisolone (Medrol) 8 mg QHS PO Last administered on 01/10/17 20:46; Start 01/10/17 at 21:00; Stop 01/10/17 at 21:01; Status DC Methylprednisolone (Medrol) 4 mg QIDAFTMEAL PO Last administered on 01/11/17 22:51; Start 01/11/17 at 09:00; Stop 01/11/17 at 21:01; Status DC Methylprednisolone (Medrol) 4 mg TID PO Last administered on 01/12/17 21:28; Start 01/12/17 at 09:00; Stop 01/12/17 at 21:01; Status DC Methylprednisolone (Medrol) 4 mg BID PO Last administered on 01/13/17 21:16; Start 01/13/17 at 09:00; Stop 01/13/17 at 21:01; Status DC Methylprednisolone (Medrol) 4 mg DAILY PO Last administered on 01/14/17 08:45 ; Start 01/14/17 at 09:00; Stop 01/14/17 at 09:01; Status DC Pantoprazole Sodium (Protonix) 40 mg DAILYAC PO Last administered on 01/14/17 08:41; Start 01/09/17 at 11:30 Acetaminophen/ Hydrocodone Bitart (Lortab 10/325) 1 tab PRN Q6HRS PRN PO PAIN Last administered on 01/10/17 06:47; Start 01/09/17 at 11:15; Stop 01/10/17 at 12:09; Status DC Bisacodyl (Dulcolax Supp) 10 mg PRN DAILY PRN IN CONSTIPATION; Start 01/09/17 at 11:30 Bisacodyl (Dulcolax Tab) 10 mg DAILY PO Last administered on 01/14/17 08:45; Start 01/09/17 at 12:00 Magnesium Citrate (Citroma) 296 ml PRN 1X PRN PO CONSTIPATION Last administered on 01/09/17 15:41; Start 01/09/17 at 11:30 Apixaban (Eliquis) 5 mg BID PO Last administered on 01/11/17 09:00; Start at 14:30; Stop 01/11/17 at 10:38; Status DC Diltiazem HCl (Cardizem 24hr Cd) 120 mg DAILY PO Last administered on 08:59; Start 01/09/17 at 14:30; Stop 01/11/17 at 10:43; Status DC Info (Anti-Coagulation Monitoring By Pharmacy) 1 each PRN DAILY PRN MC SEE COMMENTS Last administered on 01/13/17 09:53; Start 01/09/17 at 14:00 Simvastatin (Zocor) 40 mg QHS PO Last administered on 01/10/17 20:46; Start at 21:00; Stop 01/11/17 at 10:45; Status DC Losartan Potassium (Cozaar) 100 mg DAILY PO Last administered on 01/11/17 09: 00; Start 01/10/17 at 09:00; Stop 01/11/17 at 10:43; Status DC Sertraline HCl (Zoloft) 100 mg DAILY PO Last administered on 01/14/17 08:45; Start 01/10/17 at 09:00 Hydrochlorothiazide (Hydrodiuril) 25 mg DAILY PO Last administered on 08:45; Start 01/10/17 at 09:00 Sertraline HCl (Zoloft) 100 mg 1X ONCE PO Last administered on 01/09/17 21:07 ; Start 01/09/17 at 21:00; Stop 01/09/17 at 21:01; Status DC Acetaminophen/ Hydrocodone Bitart (Lortab 10/325) 1 tab PRN Q4HRS PRN PO PAIN Last administered on 01/14/17 12:37; Start 01/10/17 at 12:15 Aspirin (Ecotrin) 325 mg 1X ONCE PO Last administered on 01/11/17 11:34; Start 01/11/17 at 10:45; Stop 01/11/17 at 10:46; Status DC Diltiazem HCl (Cardizem 24hr Cd) 240 mg DAILY PO Last administered on 08:44; Start 01/12/17 at 09:00 Losartan Potassium (Cozaar) 50 mg DAILY PO Last administered on 01/14/17 08:52 ; Start 01/12/17 at 09:00 Atorvastatin Calcium (Lipitor) 20 mg QHS PO Last administered on 01/13/17 21: 14; Start 01/11/17 at 21:00 Morphine Sulfate 2 mg PRN Q4HRS PRN IV PAIN SEVERE; Start 01/11/17 at 20:15 Ondansetron HCl (Zofran) 4 mg PRN Q6HRS PRN IV NAUSEA/VOMITING; Start 01/13/17 at 07:00; Stop 01/14/17 at 06:59; Status DC Fentanyl Citrate (Fentanyl 2ml Vial) 25 mcg PRN Q5MIN PRN IV MILD PAIN; Start 01/13/17 at 07:00; Stop 01/14/17 at 06:59; Status DC Fentanyl Citrate (Fentanyl 2ml Vial) 50 mcg PRN Q5MIN PRN IV MODERATE PAIN Last administered on 01/13/17 11:48; Start 01/13/17 at 07:00; Stop 01/14/17 at 06:59; Status DC Morphine Sulfate 1 mg PRN Q10MIN PRN IV SEVERE PAIN; Start 01/13/17 at 07:00; Stop 01/14/17 at 06:59; Status DC Ringer's Solution 1,000 ml @ 30 mls/hr Q24H IV Last administered on 01/13/17 10:05; Start 01/13/17 at 07:00; Stop 01/13/17 at 18:59; Status DC Lidocaine HCl (Xylocaine-Mpf 1% Vial) 2 ml PRN 1X PRN ID IV START Last administered on 01/13/17 10:08; Start 01/13/17 at 07:00; Stop 01/14/17 at 06:59 ; Status DC Hydromorphone HCl (Dilaudid) 0.5 mg PRN Q10MIN PRN IV SEV PAIN, Second choice; Start 01/13/17 at 07:00; Stop 01/14/17 at 06:59; Status DC Prochlorperazine Edisylate (Compazine) 5 mg PACU PRN PRN IV NAUSEA, MRX1; Start 01/13/17 at 07:00; Stop 01/14/17 at 06:59; Status DC Lidocaine/Sodium Bicarbonate (Buffered Lidocaine 1%) 20 ml STK-MED ONCE IJ ; Start 01/12/17 at 10:24; Stop 01/12/17 at 10:25; Status DC Iohexol (Omnipaque 300 Mg/ml) 50 ml STK-MED ONCE .ROUTE ; Start 01/12/17 at 10: 26; Stop 01/12/17 at 10:27; Status DC Midazolam HCl (Versed) 5 mg STK-MED ONCE .ROUTE ; Start 01/12/17 at 10:44; Stop 01/12/17 at 10:45; Status DC Fentanyl Citrate (Fentanyl 5ml Vial) 250 mcg STK-MED ONCE .ROUTE ; Start at 10:44; Stop 01/12/17 at 10:45; Status DC Cefazolin Sodium/ Dextrose 50 ml @ As Directed STK-MED ONCE IV ; Start 01/12/17 at 10:45; Stop 01/12/17 at 10:46; Status DC Lidocaine/Sodium Bicarbonate (Buffered Lidocaine 1%) 20 ml 1X ONCE IJ Last administered on 01/12/17 11:40; Start 01/12/17 at 11:15; Stop 01/12/17 at 11:20 ; Status DC Midazolam HCl (Versed) 5 mg 1X ONCE IV Last administered on 01/12/17 11:41; Start 01/12/17 at 11:15; Stop 01/12/17 at 11:20; Status DC Fentanyl Citrate (Fentanyl 5ml Vial) 250 mcg 1X ONCE IV Last administered on 01/12/17 11:45; Start 01/12/17 at 11:15; Stop 01/12/17 at 11:20; Status DC Iohexol (Omnipaque 300 Mg/ml) 50 ml 1X ONCE IART Last administered on 11:45; Start 01/12/17 at 11:15; Stop 01/12/17 at 11:20; Status DC Cefazolin Sodium/ Dextrose 50 ml @ 100 mls/hr 1X ONCE IV Last administered on 01/12/17 11:04; Start 01/12/17 at 11:15; Stop 01/12/17 at 11:44; Status DC Apixaban (Eliquis) 5 mg BID PO Last administered on 01/14/17 08:46; Start 01/12/17 at 21:00 Lidocaine HCl (Xylocaine 2% Topical 30gm Tube) 1 qamar 1X ONCE TP Last administered on 01/13/17 10:24; Start 01/13/17 at 10:15; Stop 01/13/17 at 10:20 ; Status DC Benzocaine (Hurricaine One) 2 spray 1X ONCE MM Last administered on 01/13/17 10:24; Start 01/13/17 at 10:15; Stop 01/13/17 at 10:20; Status DC Lidocaine HCl (Viscous Lidocaine) 15 ml 1X ONCE SWSW Last administered on 01/13 10:25; Start 01/13/17 at 10:15; Stop 01/13/17 at 10:20; Status DC Propofol 20 ml @ As Directed STK-MED ONCE IV ; Start 01/13/17 at 11:10; Stop at 11:11; Status DC Amiodarone HCl (Cordarone) 200 mg BID PO Last administered on 01/14/17t 08:49; Start 01/13/17 at 21:00 Active Scripts Active Reported Colace (Docusate Sodium) 100 Mg Capsule 100 Mg PO BID PRN Hydrocodone-Apap 5-325 (Hydrocodone Bit/Acetaminophen) 1 Each Tablet 1 Tab PO PRN Q6HRS PRN Cyclobenzaprine Hcl 10 Mg Tablet 1 Tab PO TID Ibuprofen 600 Mg Tablet 600 Mg PO PRN Q6HRS PRN Simvastatin 40 Mg Tablet 1 Tab PO QHS Losartan-Hctz 100-25 Mg Tab (Losartan/Hydrochlorothiazide) 1 Each Tablet 1 Tab PO DAILY Zoloft (Sertraline Hcl) 100 Mg Tablet 1 Tab PO DAILY Vitals/I & O Vital Sign - Last 24 Hours 01/13/17 01/13/17 01/13/17 01/13/17 15:26 17:30 17:35 19:55 Temp 98.4 98.0 98.4 98.0 Pulse 92 122 104 Resp 18 20 B/P (MAP) 137/67 (90) 137/67 125/86 (99) Pulse Ox 96 96 O2 Delivery Nasal Cannula Nasal Cannula Nasal Cannula O2 Flow Rate 4.5 2.0 2.0 01/13/17 01/13/17 01/13/17 01/13/17 20:00 21:15 21:16 23:35 Temp 97.3 97.3 Pulse 110 100 Resp 18 18 B/P (MAP) 125/86 142/67 (92) Pulse Ox 96 96 O2 Delivery Nasal Cannula Nasal Cannula Nasal Cannula O2 Flow Rate 2.0 2.0 2.0 01/14/17 01/14/17 01/14/17 01/14/17 02:03 07:00 08:00 08:39 Temp 98.0 98.0 98.0 98.0 Pulse 96 101 Resp 18 18 18 B/P (MAP) 125/83 (97) 159/84 (109) Pulse Ox 94 95 94 O2 Delivery Nasal Cannula Nasal Cannula Nasal Cannula Nasal Cannula O2 Flow Rate 2.0 2.0 2.0 2.0 1001/14/17 01/14/17 01/14/17 08:44 08:49 08:52 09:39 Pulse 112 121 95 Resp 18 B/P (MAP) 159/84 159/84 159/84 Pulse Ox 94 O2 Delivery Nasal Cannula O2 Flow Rate 2.0 01/14/17 01/14/17 11:00 12:37 Temp 97.4 97.4 Pulse 88 Resp 20 16 B/P (MAP) 129/69 (89) Pulse Ox 95 O2 Delivery Nasal Cannula Nasal Cannula O2 Flow Rate 2.0 2.0 RAMANDEEP BABCOCK MD Jan 14, 2017 13:32
[2017-01-14 15:30] VITALS: BP 102/53
[2017-01-14 19:56] VITALS: BP 122/61
[2017-01-14] MEDS: ATORVASTATIN CALCIUM 20 MG TABLET PO SCH (20:15)
[2017-01-14 23:51] VITALS: BP 128/69
[2017-01-15] MEDS: HYDROcodone/APAP 10/325 1 TAB TABLET PO PRN ×4 (00:54→20:55)
[2017-01-15 03:22] VITALS: BP 127/72
[2017-01-15 07:00] VITALS: BP 129/78
[2017-01-15] MEDS: PANTOPRAZOLE 40 MG TABLET.DR. PO SCH (08:15)
[2017-01-15] MEDS: POLYETHYLENE GLYCOL 3350 17 GM PACKET. PO SCH (08:43)
[2017-01-15] MEDS: MAGNESIUM HYDROXIDE 2,400 MG/30 ML ORAL.SUSP. PO PRN (08:43)
[2017-01-15] MEDS: BISACODYL 5 MG TABLET.DR. PO SCH (08:44)
[2017-01-15] MEDS: LIDOCAINE (700MG/PATCH) PATCH. TD SCH (08:44)
[2017-01-15] MEDS: LOSARTAN POTASSIUM 50 MG TABLET. PO SCH (08:45)
[2017-01-15] MEDS: APIXABAN 5 MG TABLET. PO SCH ×2 (08:46→20:53)
[2017-01-15] MEDS: hydroCHLOROthiazide 25 MG TABLET PO SCH (08:46)
[2017-01-15] MEDS: SERTRALINE 50 MG TABLET. PO SCH (08:46)
[2017-01-15] MEDS: AMIODARONE HCL 200 MG TABLET. PO SCH ×2 (08:47→20:54)
[2017-01-15 11:00] VITALS: BP 121/70
--- NOTE | 2017-01-15 11:15 | PDOC ---
PROGRESS NOTES Chief Complaint Chief Complaint 1. New atrial fib/flutter RVR s/p MCKAYLA no thrombus planned for OP cardioversion 4 weeks 2. Obesity BMI 36 3. Recent fall with back injury 4. Acute back pain no resolve with PO pain meds 5. HTN, dyslipidemia - chronic stable 6. Ex smoker - quit 30 yrs ago 7. Disc Bulge 2, L2 compression fx L1, recent - s/p kyphoplasty 01/12/17 History of Present Illness History of Present Illness Still back pain Goes into tears CAnt start NSAID, is on AC for atrial fib Rt sided back pain, no radiation to legs Wants to go home but not with this level of pain PLAn: I have asked RN to reach out to physiatry and neurosx - re imaging? Epidural shots c.o PAin mx?? NOt ready to dc BArely ambulating bec of back pain still - more localized now than pre op status Dw Rns Vitals Vitals Vital Signs Date Time Temp Pulse Resp B/P (MAP) Pulse Ox O2 Delivery O2 Flow Rate FiO2 01/15/17 11:00 97.7 93 18 121/70 (87) 96 Room Air 97.7 01/15/17 03:22 2.0 Physical Exam General: Alert, Oriented X3, Cooperative, No acute distress Heart: Regular rate Lungs: Clear Abdomen: Normal bowel sounds, Soft, No tenderness, No hepatosplenomegaly, No masses Extremities: No clubbing, No cyanosis, No edema, Normal pulses, No tenderness/ swelling Skin: No rashes, No breakdown, No significant lesion Review of Systems Review of Systems back pain persists Comment Review of Relevant I have reviewed the following items peter (where applicable) has been applied. Medications Current Medications Hydromorphone HCl (Dilaudid) 1 mg 1X ONCE IV Last administered on 01/08/17 18 :56; Start 01/08/17 at 18:15; Stop 01/08/17 at 18:16; Status DC Ondansetron HCl (Zofran) 4 mg 1X ONCE IV Last administered on 01/08/17 18:55 ; Start 01/08/17 at 18:15; Stop 01/08/17 at 18:16; Status DC Sodium Chloride 1,000 ml @ 1,000 mls/hr 1X ONCE IV Last administered on 18:52; Start 01/08/17 at 18:15; Stop 01/08/17 at 19:14; Status DC Diltiazem HCl 125 mg/Dextrose 125 ml @ 0 mls/hr CONT PRN IV SEE I/O RECORD Last administered on 01/09/17 06:14; Start 01/08/17 at 18:15; Stop 01/11/17 at 10:43; Status DC Diltiazem HCl (Cardizem) 10 mg 1X ONCE IVP Last administered on 01/08/17 18: 53; Start 01/08/17 at 18:15; Stop 01/08/17 at 18:16; Status DC Ondansetron HCl (Zofran) 4 mg PRN Q8HRS PRN IV NAUSEA/VOMITING; Start 01/08/17 at 19:15; Stop 01/08/17 at 19:25; Status DC Fentanyl Citrate (Fentanyl 2ml Vial) 50 mcg PRN Q2HR PRN IV PAIN Last administered on 01/09/17 04:22; Start 01/08/17 at 19:15; Stop 01/09/17 at 19:14 ; Status DC Acetaminophen (Tylenol) 650 mg PRN Q4HRS PRN PO FEVER; Start 01/08/17 at 19:15 ; Stop 01/09/17 at 19:14; Status DC Nitroglycerin (Nitrostat) 0.4 mg PRN Q5MIN PRN SL CHEST PAIN; Start 01/08/17 at 19:15; Stop 01/09/17 at 19:14; Status DC Ondansetron HCl (Zofran) 4 mg PRN Q6HRS PRN IV NAUSEA/VOMITING Last administered on 01/09/17 07:22; Start 01/08/17 at 19:30; Stop 01/09/17 at 19:29 ; Status DC Cyclobenzaprine HCl (Flexeril) 10 mg TID PO Last administered on 01/09/17 09: 23; Start 01/08/17 at 21:00; Stop 01/09/17 at 11:12; Status DC Ibuprofen (Motrin) 600 mg TID PO Last administered on 01/09/17 09:24; Start at 21:00; Stop 01/09/17 at 11:12; Status DC Lidocaine (Lidoderm) 1 patch DAILY TD Last administered on 01/15/17 08:44; Start 01/08/17 at 19:30 Ondansetron HCl (Zofran) 4 mg PRN Q6HRS PRN IV NAUSEA/VOMITING; Start 01/08/17 at 19:30; Stop 01/09/17 at 19:29; Status UNV Enoxaparin Sodium (Lovenox 40mg Syringe) 40 mg Q24H SQ Last administered on 09:24; Start 01/09/17 at 09:00; Stop 01/09/17 at 10:55; Status DC Polyethylene Glycol (miraLAX PACKET) 17 gm DAILY PO Last administered on 08:43; Start 01/09/17 at 09:30 Magnesium Hydroxide (Milk Of Magnesia) 2,400 mg PRN DAILY PRN PO CONSTIPATION Last administered on 01/15/17 08:43; Start 01/09/17 at 09:00 Heparin Sodium (Porcine) (Heparin Sq) 5,000 unit Q8HRS SQ ; Start 01/09/17 at 14 :00; Stop 01/09/17 at 14:00; Status DC Cyclobenzaprine HCl (Flexeril) 10 mg PRN Q6HRS PRN PO MUSCLE SPASMS Last administered on 01/14/17 08:39; Start 01/10/17 at 09:00 Methylprednisolone (Medrol) 8 mg BID PO Last administered on 01/09/17 21:06; Start 01/09/17 at 11:30; Stop 01/09/17 at 21:01; Status DC Methylprednisolone (Medrol) 4 mg BIDPCLD PO Last administered on 01/09/17 18: 30; Start 01/09/17 at 12:30; Stop 01/09/17 at 17:31; Status DC Methylprednisolone (Medrol) 4 mg TIDPC PO Last administered on 01/10/17 18:27 ; Start 01/10/17 at 08:30; Stop 01/10/17 at 17:31; Status DC Methylprednisolone (Medrol) 8 mg QHS PO Last administered on 01/10/17 20:46; Start 01/10/17 at 21:00; Stop 01/10/17 at 21:01; Status DC Methylprednisolone (Medrol) 4 mg QIDAFTMEAL PO Last administered on 01/11/17 22:51; Start 01/11/17 at 09:00; Stop 01/11/17 at 21:01; Status DC Methylprednisolone (Medrol) 4 mg TID PO Last administered on 01/12/17 21:28; Start 01/12/17 at 09:00; Stop 01/12/17 at 21:01; Status DC Methylprednisolone (Medrol) 4 mg BID PO Last administered on 01/13/17 21:16; Start 01/13/17 at 09:00; Stop 01/13/17 at 21:01; Status DC Methylprednisolone (Medrol) 4 mg DAILY PO Last administered on 01/14/17 08:45 ; Start 01/14/17 at 09:00; Stop 01/14/17 at 09:01; Status DC Pantoprazole Sodium (Protonix) 40 mg DAILYAC PO Last administered on 01/15/17 08:15; Start 01/09/17 at 11:30 Acetaminophen/ Hydrocodone Bitart (Lortab 10/325) 1 tab PRN Q6HRS PRN PO PAIN Last administered on 01/10/17 06:47; Start 01/09/17 at 11:15; Stop 01/10/17 at 12:09; Status DC Bisacodyl (Dulcolax Supp) 10 mg PRN DAILY PRN LA CONSTIPATION; Start 01/09/17 at 11:30 Bisacodyl (Dulcolax Tab) 10 mg DAILY PO Last administered on 01/15/17 08:44; Start 01/09/17 at 12:00 Magnesium Citrate (Citroma) 296 ml PRN 1X PRN PO CONSTIPATION Last administered on 01/09/17 15:41; Start 01/09/17 at 11:30 Apixaban (Eliquis) 5 mg BID PO Last administered on 01/11/17 09:00; Start at 14:30; Stop 01/11/17 at 10:38; Status DC Diltiazem HCl (Cardizem 24hr Cd) 120 mg DAILY PO Last administered on 08:59; Start 01/09/17 at 14:30; Stop 01/11/17 at 10:43; Status DC Info (Anti-Coagulation Monitoring By Pharmacy) 1 each PRN DAILY PRN MC SEE COMMENTS Last administered on 01/13/17 09:53; Start 01/09/17 at 14:00 Simvastatin (Zocor) 40 mg QHS PO Last administered on 01/10/17 20:46; Start at 21:00; Stop 01/11/17 at 10:45; Status DC Losartan Potassium (Cozaar) 100 mg DAILY PO Last administered on 01/11/17 09: 00; Start 01/10/17 at 09:00; Stop 01/11/17 at 10:43; Status DC Sertraline HCl (Zoloft) 100 mg DAILY PO Last administered on 01/15/17 08:46; Start 01/10/17 at 09:00 Hydrochlorothiazide (Hydrodiuril) 25 mg DAILY PO Last administered on 08:46; Start 01/10/17 at 09:00 Sertraline HCl (Zoloft) 100 mg 1X ONCE PO Last administered on 01/09/17 21:07 ; Start 01/09/17 at 21:00; Stop 01/09/17 at 21:01; Status DC Acetaminophen/ Hydrocodone Bitart (Lortab 10/325) 1 tab PRN Q4HRS PRN PO PAIN Last administered on 01/15/17 08:20; Start 01/10/17 at 12:15 Aspirin (Ecotrin) 325 mg 1X ONCE PO Last administered on 01/11/17 11:34; Start 01/11/17 at 10:45; Stop 01/11/17 at 10:46; Status DC Diltiazem HCl (Cardizem 24hr Cd) 240 mg DAILY PO Last administered on 08:46; Start 01/12/17 at 09:00 Losartan Potassium (Cozaar) 50 mg DAILY PO Last administered on 01/15/17 08:45 ; Start 01/12/17 at 09:00 Atorvastatin Calcium (Lipitor) 20 mg QHS PO Last administered on 01/14/17 20: 15; Start 01/11/17 at 21:00 Morphine Sulfate 2 mg PRN Q4HRS PRN IV PAIN SEVERE; Start 01/11/17 at 20:15 Ondansetron HCl (Zofran) 4 mg PRN Q6HRS PRN IV NAUSEA/VOMITING; Start 01/13/17 at 07:00; Stop 01/14/17 at 06:59; Status DC Fentanyl Citrate (Fentanyl 2ml Vial) 25 mcg PRN Q5MIN PRN IV MILD PAIN; Start 01/13/17 at 07:00; Stop 01/14/17 at 06:59; Status DC Fentanyl Citrate (Fentanyl 2ml Vial) 50 mcg PRN Q5MIN PRN IV MODERATE PAIN Last administered on 01/13/17 11:48; Start 01/13/17 at 07:00; Stop 01/14/17 at 06:59; Status DC Morphine Sulfate 1 mg PRN Q10MIN PRN IV SEVERE PAIN; Start 01/13/17 at 07:00; Stop 01/14/17 at 06:59; Status DC Ringer's Solution 1,000 ml @ 30 mls/hr Q24H IV Last administered on 01/13/17 10:05; Start 01/13/17 at 07:00; Stop 01/13/17 at 18:59; Status DC Lidocaine HCl (Xylocaine-Mpf 1% Vial) 2 ml PRN 1X PRN ID IV START Last administered on 01/13/17 10:08; Start 01/13/17 at 07:00; Stop 01/14/17 at 06:59 ; Status DC Hydromorphone HCl (Dilaudid) 0.5 mg PRN Q10MIN PRN IV SEV PAIN, Second choice; Start 01/13/17 at 07:00; Stop 01/14/17 at 06:59; Status DC Prochlorperazine Edisylate (Compazine) 5 mg PACU PRN PRN IV NAUSEA, MRX1; Start 01/13/17 at 07:00; Stop 01/14/17 at 06:59; Status DC Lidocaine/Sodium Bicarbonate (Buffered Lidocaine 1%) 20 ml STK-MED ONCE IJ ; Start 01/12/17 at 10:24; Stop 01/12/17 at 10:25; Status DC Iohexol (Omnipaque 300 Mg/ml) 50 ml STK-MED ONCE .ROUTE ; Start 01/12/17 at 10: 26; Stop 01/12/17 at 10:27; Status DC Midazolam HCl (Versed) 5 mg STK-MED ONCE .ROUTE ; Start 01/12/17 at 10:44; Stop 01/12/17 at 10:45; Status DC Fentanyl Citrate (Fentanyl 5ml Vial) 250 mcg STK-MED ONCE .ROUTE ; Start at 10:44; Stop 01/12/17 at 10:45; Status DC Cefazolin Sodium/ Dextrose 50 ml @ As Directed STK-MED ONCE IV ; Start 01/12/17 at 10:45; Stop 01/12/17 at 10:46; Status DC Lidocaine/Sodium Bicarbonate (Buffered Lidocaine 1%) 20 ml 1X ONCE IJ Last administered on 01/12/17 11:40; Start 01/12/17 at 11:15; Stop 01/12/17 at 11:20 ; Status DC Midazolam HCl (Versed) 5 mg 1X ONCE IV Last administered on 01/12/17 11:41; Start 01/12/17 at 11:15; Stop 01/12/17 at 11:20; Status DC Fentanyl Citrate (Fentanyl 5ml Vial) 250 mcg 1X ONCE IV Last administered on 01/12/17 11:45; Start 01/12/17 at 11:15; Stop 01/12/17 at 11:20; Status DC Iohexol (Omnipaque 300 Mg/ml) 50 ml 1X ONCE IART Last administered on 11:45; Start 01/12/17 at 11:15; Stop 01/12/17 at 11:20; Status DC Cefazolin Sodium/ Dextrose 50 ml @ 100 mls/hr 1X ONCE IV Last administered on 01/12/17 11:04; Start 01/12/17 at 11:15; Stop 01/12/17 at 11:44; Status DC Apixaban (Eliquis) 5 mg BID PO Last administered on 01/15/17 08:46; Start 01/12/17 at 21:00 Lidocaine HCl (Xylocaine 2% Topical 30gm Tube) 1 qamar 1X ONCE TP Last administered on 01/13/17 10:24; Start 01/13/17 at 10:15; Stop 01/13/17 at 10:20 ; Status DC Benzocaine (Hurricaine One) 2 spray 1X ONCE MM Last administered on 01/13/17 10:24; Start 01/13/17 at 10:15; Stop 01/13/17 at 10:20; Status DC Lidocaine HCl (Viscous Lidocaine) 15 ml 1X ONCE SWSW Last administered on 01/13 10:25; Start 01/13/17 at 10:15; Stop 01/13/17 at 10:20; Status DC Propofol 20 ml @ As Directed STK-MED ONCE IV ; Start 01/13/17 at 11:10; Stop at 11:11; Status DC Amiodarone HCl (Cordarone) 200 mg BID PO Last administered on 01/15/17 08:47; Start 01/13/17 at 21:00 Tramadol HCl (Ultram) 50 mg 1X ONCE PO Last administered on 01/14/17 14:09; Start 01/14/17 at 13:30; Stop 01/14/17 at 13:31; Status DC Tramadol HCl (Ultram) 50 mg PRN Q6HRS PRN PO PAIN; Start 01/14/17 at 13:30 Active Scripts Active Reported Colace (Docusate Sodium) 100 Mg Capsule 100 Mg PO BID PRN Hydrocodone-Apap 5-325 (Hydrocodone Bit/Acetaminophen) 1 Each Tablet 1 Tab PO PRN Q6HRS PRN Cyclobenzaprine Hcl 10 Mg Tablet 1 Tab PO TID Ibuprofen 600 Mg Tablet 600 Mg PO PRN Q6HRS PRN Simvastatin 40 Mg Tablet 1 Tab PO QHS Losartan-Hctz 100-25 Mg Tab (Losartan/Hydrochlorothiazide) 1 Each Tablet 1 Tab PO DAILY Zoloft (Sertraline Hcl) 100 Mg Tablet 1 Tab PO DAILY Vitals/I & O Vital Sign - Last 24 Hours 01/14/17 01/14/17 01/14/17 01/14/17 12:37 14:09 15:09 15:30 Temp 98.1 98.1 Pulse 91 Resp 16 18 16 20 B/P (MAP) 102/53 (69) Pulse Ox 95 98 92 O2 Delivery Nasal Cannula Nasal Cannula Nasal Cannula Nasal Cannula O2 Flow Rate 2.0 2.0 2.0 2.0 01/14/17 01/14/17 01/14/17 01/14/17 16:37 17:37 19:56 19:56 Temp 97.6 97.6 Pulse 100 Resp 16 15 B/P (MAP) 122/61 (81) Pulse Ox 95 95 96 O2 Delivery Nasal Cannula Nasal Cannula Nasal Cannula Nasal Cannula O2 Flow Rate 2.0 2.0 2.0 2.0 01/14/17 01/14/17 01/15/17 01/15/17 20:15 23:51 03:22 07:00 Temp 97.6 97.6 95.5 97.6 97.6 95.5 Pulse 100 109 103 100 Resp 18 22 B/P (MAP) 122/61 128/69 (88) 127/72 (90) 129/78 (95) Pulse Ox 96 96 89 O2 Delivery Nasal Cannula Nasal Cannula Room Air O2 Flow Rate 2.0 2.0 01/15/17 01/15/17 01/15/17 01/15/17 08:20 08:45 08:46 08:47 Pulse 100 100 100 Resp 20 B/P (MAP) 129/78 129/78 129/78 Pulse Ox 93 O2 Delivery Room Air 01/15/17 11:00 Temp 97.7 97.7 Pulse 93 Resp 18 B/P (MAP) 121/70 (87) Pulse Ox 96 O2 Delivery Room Air RAMANDEEP BABCOCK MD Jan 15, 2017 11:15
[2017-01-15] MEDS: CYCLOBENZAPRINE 10 MG TABLET. PO PRN ×2 (12:22→22:47)
--- NOTE | 2017-01-15 15:38 | PDOC ---
Provider Note Provider Note Reviewed new Lumbar MRI- s/p kyphoplasty, no apparent complication noted, no significant central stenosis If pain persists, would recommend pain clinic consult Call with questions MARY THACKER MD Jan 15, 2017 15:38
--- NOTE | 2017-01-15 16:13 | RAD ---
EXAMINATION: Magnetic resonance imaging (MRI) of the lumbar spine without contrast HISTORY: Worsening low back pain with bilateral leg pain postkyphoplasty. TECHNIQUE: Multiplanar multi-weighted MRI of the lumbar spine was performed without intravenous contrast using the standard lumbar spine protocol. Contrast information: None administered COMPARISON: MRI of lumbar spine January 09, 2017 FINDINGS: The alignment of the lumbar spine is normal. Posttherapy changes are identified from spinal augmentation at the L1 vertebral level. There is persistent edema involving the L1 vertebral body, progressed since January 09, 2017. Mild retropulsion at this level results in mild spinal canal stenosis. Modic type II endplate degenerative changes are identified at L2-L3, L3-L4 and L4-L5. There is disc desiccation at all levels of the lumbar spine with vacuum disc phenomena at all levels. The conus medullaris terminates at the level of L1-L2. The distal spinal cord signal intensity is normal. Common bile duct is mildly prominent measuring 9 mm. No definite gallstones are identified within the visualized portions of the gallbladder. The aorta is normal. L1-L2: Minimal disc bulge There is no facet arthropathy. There is mild right neuroforaminal stenosis. There is mild spinal canal stenosis from retropulsion. L2-L3: Disc bulge with central disc protrusion. There is mild facet arthropathy. There is mild neuroforaminal stenosis. There is moderate spinal canal stenosis. L3-L4: There is disc bulge asymmetric to the right. There is moderate facet arthropathy. There is mild neuroforaminal stenosis. There is no spinal canal stenosis. L4-L5: There is diffuse disc bulge. There is mild facet arthropathy. There is mild neuroforaminal stenosis. There is no spinal canal stenosis. L5-S1: There is diffuse disc bulge. There is moderate facet arthropathy. There is moderate neuroforaminal stenosis. There is no spinal canal stenosis. IMPRESSION: 1. Spinal augmentation changes are identified at L1 with increased edema involving the vertebral body. Findings could either represent post therapy changes versus reinjury. 2. There is a central disc protrusion at L2-L3 resulting in moderate spinal canal stenosis, exacerbated by epidural lipomatosis. Findings are stable from prior examination. Electronically signed by: Tara Lindsay MD (01/15/2017 4:09 PM) [id number]
[2017-01-15 19:20] VITALS: BP 148/77
[2017-01-15] MEDS: ATORVASTATIN CALCIUM 20 MG TABLET PO SCH (20:54)
[2017-01-15 23:50] VITALS: BP 124/77
[2017-01-16 02:47] VITALS: BP 129/70
[2017-01-16 07:00] VITALS: BP 111/64
[2017-01-16] MEDS: APIXABAN 5 MG TABLET. PO SCH ×2 (08:31→20:47)
[2017-01-16] MEDS: CYCLOBENZAPRINE 10 MG TABLET. PO PRN ×2 (08:31→20:47)
[2017-01-16] MEDS: BISACODYL 5 MG TABLET.DR. PO SCH (08:31)
[2017-01-16] MEDS: PANTOPRAZOLE 40 MG TABLET.DR. PO SCH (08:31)
[2017-01-16] MEDS: hydroCHLOROthiazide 25 MG TABLET PO SCH (08:31)
[2017-01-16] MEDS: LOSARTAN POTASSIUM 50 MG TABLET. PO SCH (08:32)
[2017-01-16] MEDS: AMIODARONE HCL 200 MG TABLET. PO SCH ×2 (08:32→20:47)
[2017-01-16] MEDS: SERTRALINE 50 MG TABLET. PO SCH (08:32)
[2017-01-16] MEDS: HYDROcodone/APAP 10/325 1 TAB TABLET PO PRN (08:33)
[2017-01-16] MEDS: LIDOCAINE (700MG/PATCH) PATCH. TD SCH (08:33)
[2017-01-16] MEDS: POLYETHYLENE GLYCOL 3350 17 GM PACKET. PO SCH (08:33)
[2017-01-16] MEDS: oxyCODONE/APAP 7.5/325 1 TAB TABLET PO PRN ×2 (10:54→20:48)
[2017-01-16 11:00] VITALS: BP 109/67
--- NOTE | 2017-01-16 13:42 | PDOC ---
PROGRESS NOTES Chief Complaint Chief Complaint 1. New atrial fib/flutter RVR s/p MCKAYLA no thrombus s/p cardioversion but failed, planned for repeat OP cardioversion 4 weeks if not conversion 2. Obesity BMI 36 3. Recent fall with back injury 4. Acute back pain no resolve with PO pain meds 5. HTN, dyslipidemia - chronic stable 6. Ex smoker - quit 30 yrs ago 7. Disc Bulge 2, L2, compression fx L1, recent - s/p kyphoplasty 01/12/17 for L1 compressive fx plan: fu with card, no further intervention for now add percocet for pain no neurosx needs to be done on eliquis PTOT hope dc soon with History of Present Illness History of Present Illness ROS: no fever, chills, sob or chest pain still severe lower back pain 01/19, hard to move constipation ok with stool softner Vitals Vitals Vital Signs Date Time Temp Pulse Resp B/P (MAP) Pulse Ox O2 Delivery O2 Flow Rate FiO2 01/16/17 12:27 16 94 Nasal Cannula 2.0 01/16/17 11:00 97.9 93 109/67 (81) 97.9 Physical Exam General: Alert, Oriented X3, Cooperative, No acute distress Heart: Regular rate, Normal S1, Normal S2 Lungs: Clear Abdomen: Normal bowel sounds, Soft, No tenderness, No hepatosplenomegaly, No masses Extremities: No clubbing, No cyanosis, No edema, Normal pulses, No tenderness/ swelling Skin: No rashes, No breakdown, No significant lesion Comment Review of Relevant I have reviewed the following items peter (where applicable) has been applied. Medications Current Medications Hydromorphone HCl (Dilaudid) 1 mg 1X ONCE IV Last administered on 01/08/17 18 :56; Start 01/08/17 at 18:15; Stop 01/08/17 at 18:16; Status DC Ondansetron HCl (Zofran) 4 mg 1X ONCE IV Last administered on 01/08/17 18:55 ; Start 01/08/17 at 18:15; Stop 01/08/17 at 18:16; Status DC Sodium Chloride 1,000 ml @ 1,000 mls/hr 1X ONCE IV Last administered on 18:52; Start 01/08/17 at 18:15; Stop 01/08/17 at 19:14; Status DC Diltiazem HCl 125 mg/Dextrose 125 ml @ 0 mls/hr CONT PRN IV SEE I/O RECORD Last administered on 01/09/17 06:14; Start 01/08/17 at 18:15; Stop 01/11/17 at 10:43; Status DC Diltiazem HCl (Cardizem) 10 mg 1X ONCE IVP Last administered on 01/08/17 18: 53; Start 01/08/17 at 18:15; Stop 01/08/17 at 18:16; Status DC Ondansetron HCl (Zofran) 4 mg PRN Q8HRS PRN IV NAUSEA/VOMITING; Start 01/08/17 at 19:15; Stop 01/08/17 at 19:25; Status DC Fentanyl Citrate (Fentanyl 2ml Vial) 50 mcg PRN Q2HR PRN IV PAIN Last administered on 01/09/17 04:22; Start 01/08/17 at 19:15; Stop 01/09/17 at 19:14 ; Status DC Acetaminophen (Tylenol) 650 mg PRN Q4HRS PRN PO FEVER; Start 01/08/17 at 19:15 ; Stop 01/09/17 at 19:14; Status DC Nitroglycerin (Nitrostat) 0.4 mg PRN Q5MIN PRN SL CHEST PAIN; Start 01/08/17 at 19:15; Stop 01/09/17 at 19:14; Status DC Ondansetron HCl (Zofran) 4 mg PRN Q6HRS PRN IV NAUSEA/VOMITING Last administered on 01/09/17 07:22; Start 01/08/17 at 19:30; Stop 01/09/17 at 19:29 ; Status DC Cyclobenzaprine HCl (Flexeril) 10 mg TID PO Last administered on 01/09/17 09: 23; Start 01/08/17 at 21:00; Stop 01/09/17 at 11:12; Status DC Ibuprofen (Motrin) 600 mg TID PO Last administered on 01/09/17 09:24; Start at 21:00; Stop 01/09/17 at 11:12; Status DC Lidocaine (Lidoderm) 1 patch DAILY TD Last administered on 01/16/17 08:33; Start 01/08/17 at 19:30 Ondansetron HCl (Zofran) 4 mg PRN Q6HRS PRN IV NAUSEA/VOMITING; Start 01/08/17 at 19:30; Stop 01/09/17 at 19:29; Status UNV Enoxaparin Sodium (Lovenox 40mg Syringe) 40 mg Q24H SQ Last administered on 09:24; Start 01/09/17 at 09:00; Stop 01/09/17 at 10:55; Status DC Polyethylene Glycol (miraLAX PACKET) 17 gm DAILY PO Last administered on 08:33; Start 01/09/17 at 09:30 Magnesium Hydroxide (Milk Of Magnesia) 2,400 mg PRN DAILY PRN PO CONSTIPATION Last administered on 01/15/17 08:43; Start 01/09/17 at 09:00 Heparin Sodium (Porcine) (Heparin Sq) 5,000 unit Q8HRS SQ ; Start 01/09/17 at 14 :00; Stop 01/09/17 at 14:00; Status DC Cyclobenzaprine HCl (Flexeril) 10 mg PRN Q6HRS PRN PO MUSCLE SPASMS Last administered on 01/16/17 08:31; Start 01/10/17 at 09:00 Methylprednisolone (Medrol) 8 mg BID PO Last administered on 01/09/17 21:06; Start 01/09/17 at 11:30; Stop 01/09/17 at 21:01; Status DC Methylprednisolone (Medrol) 4 mg BIDPCLD PO Last administered on 01/09/17 18: 30; Start 01/09/17 at 12:30; Stop 01/09/17 at 17:31; Status DC Methylprednisolone (Medrol) 4 mg TIDPC PO Last administered on 01/10/17 18:27 ; Start 01/10/17 at 08:30; Stop 01/10/17 at 17:31; Status DC Methylprednisolone (Medrol) 8 mg QHS PO Last administered on 01/10/17 20:46; Start 01/10/17 at 21:00; Stop 01/10/17 at 21:01; Status DC Methylprednisolone (Medrol) 4 mg QIDAFTMEAL PO Last administered on 01/11/17 22:51; Start 01/11/17 at 09:00; Stop 01/11/17 at 21:01; Status DC Methylprednisolone (Medrol) 4 mg TID PO Last administered on 01/12/17 21:28; Start 01/12/17 at 09:00; Stop 01/12/17 at 21:01; Status DC Methylprednisolone (Medrol) 4 mg BID PO Last administered on 01/13/17 21:16; Start 01/13/17 at 09:00; Stop 01/13/17 at 21:01; Status DC Methylprednisolone (Medrol) 4 mg DAILY PO Last administered on 01/14/17 08:45 ; Start 01/14/17 at 09:00; Stop 01/14/17 at 09:01; Status DC Pantoprazole Sodium (Protonix) 40 mg DAILYAC PO Last administered on 01/16/17 08:31; Start 01/09/17 at 11:30 Acetaminophen/ Hydrocodone Bitart (Lortab 10/325) 1 tab PRN Q6HRS PRN PO PAIN Last administered on 01/10/17 06:47; Start 01/09/17 at 11:15; Stop 01/10/17 at 12:09; Status DC Bisacodyl (Dulcolax Supp) 10 mg PRN DAILY PRN [place] CONSTIPATION; Start 01/09/17 at 11:30 Bisacodyl (Dulcolax Tab) 10 mg DAILY PO Last administered on 01/16/17 08:31; Start 01/09/17 at 12:00 Magnesium Citrate (Citroma) 296 ml PRN 1X PRN PO CONSTIPATION Last administered on 01/09/17 15:41; Start 01/09/17 at 11:30 Apixaban (Eliquis) 5 mg BID PO Last administered on 01/11/17 09:00; Start at 14:30; Stop 01/11/17 at 10:38; Status DC Diltiazem HCl (Cardizem 24hr Cd) 120 mg DAILY PO Last administered on 08:59; Start 01/09/17 at 14:30; Stop 01/11/17 at 10:43; Status DC Info (Anti-Coagulation Monitoring By Pharmacy) 1 each PRN DAILY PRN MC SEE COMMENTS Last administered on 01/13/17 09:53; Start 01/09/17 at 14:00 Simvastatin (Zocor) 40 mg QHS PO Last administered on 01/10/17 20:46; Start at 21:00; Stop 01/11/17 at 10:45; Status DC Losartan Potassium (Cozaar) 100 mg DAILY PO Last administered on 01/11/17 09: 00; Start 01/10/17 at 09:00; Stop 01/11/17 at 10:43; Status DC Sertraline HCl (Zoloft) 100 mg DAILY PO Last administered on 01/16/17 08:32; Start 01/10/17 at 09:00 Hydrochlorothiazide (Hydrodiuril) 25 mg DAILY PO Last administered on 08:31; Start 01/10/17 at 09:00 Sertraline HCl (Zoloft) 100 mg 1X ONCE PO Last administered on 01/09/17 21:07 ; Start 01/09/17 at 21:00; Stop 01/09/17 at 21:01; Status DC Acetaminophen/ Hydrocodone Bitart (Lortab 10/325) 1 tab PRN Q4HRS PRN PO PAIN Last administered on 01/16/17 08:33; Start 01/10/17 at 12:15; Stop 01/16/17 at 09:56; Status DC Aspirin (Ecotrin) 325 mg 1X ONCE PO Last administered on 01/11/17 11:34; Start 01/11/17 at 10:45; Stop 01/11/17 at 10:46; Status DC Diltiazem HCl (Cardizem 24hr Cd) 240 mg DAILY PO Last administered on 08:32; Start 01/12/17 at 09:00 Losartan Potassium (Cozaar) 50 mg DAILY PO Last administered on 01/16/17 08:32 ; Start 01/12/17 at 09:00 Atorvastatin Calcium (Lipitor) 20 mg QHS PO Last administered on 01/15/17 20: 54; Start 01/11/17 at 21:00 Morphine Sulfate 2 mg PRN Q4HRS PRN IV PAIN SEVERE; Start 01/11/17 at 20:15 Ondansetron HCl (Zofran) 4 mg PRN Q6HRS PRN IV NAUSEA/VOMITING; Start 01/13/17 at 07:00; Stop 01/14/17 at 06:59; Status DC Fentanyl Citrate (Fentanyl 2ml Vial) 25 mcg PRN Q5MIN PRN IV MILD PAIN; Start 01/13/17 at 07:00; Stop 01/14/17 at 06:59; Status DC Fentanyl Citrate (Fentanyl 2ml Vial) 50 mcg PRN Q5MIN PRN IV MODERATE PAIN Last administered on 01/13/17 11:48; Start 01/13/17 at 07:00; Stop 01/14/17 at 06:59; Status DC Morphine Sulfate 1 mg PRN Q10MIN PRN IV SEVERE PAIN; Start 01/13/17 at 07:00; Stop 01/14/17 at 06:59; Status DC Ringer's Solution 1,000 ml @ 30 mls/hr Q24H IV Last administered on 01/13/17 10:05; Start 01/13/17 at 07:00; Stop 01/13/17 at 18:59; Status DC Lidocaine HCl (Xylocaine-Mpf 1% Vial) 2 ml PRN 1X PRN ID IV START Last administered on 01/13/17 10:08; Start 01/13/17 at 07:00; Stop 01/14/17 at 06:59 ; Status DC Hydromorphone HCl (Dilaudid) 0.5 mg PRN Q10MIN PRN IV SEV PAIN, Second choice; Start 01/13/17 at 07:00; Stop 01/14/17 at 06:59; Status DC Prochlorperazine Edisylate (Compazine) 5 mg PACU PRN PRN IV NAUSEA, MRX1; Start 01/13/17 at 07:00; Stop 01/14/17 at 06:59; Status DC Lidocaine/Sodium Bicarbonate (Buffered Lidocaine 1%) 20 ml STK-MED ONCE IJ ; Start 01/12/17 at 10:24; Stop 01/12/17 at 10:25; Status DC Iohexol (Omnipaque 300 Mg/ml) 50 ml STK-MED ONCE .ROUTE ; Start 01/12/17 at 10: 26; Stop 01/12/17 at 10:27; Status DC Midazolam HCl (Versed) 5 mg STK-MED ONCE .ROUTE ; Start 01/12/17 at 10:44; Stop 01/12/17 at 10:45; Status DC Fentanyl Citrate (Fentanyl 5ml Vial) 250 mcg STK-MED ONCE .ROUTE ; Start at 10:44; Stop 01/12/17 at 10:45; Status DC Cefazolin Sodium/ Dextrose 50 ml @ As Directed STK-MED ONCE IV ; Start 01/12/17 at 10:45; Stop 01/12/17 at 10:46; Status DC Lidocaine/Sodium Bicarbonate (Buffered Lidocaine 1%) 20 ml 1X ONCE IJ Last administered on 01/12/17 11:40; Start 01/12/17 at 11:15; Stop 01/12/17 at 11:20 ; Status DC Midazolam HCl (Versed) 5 mg 1X ONCE IV Last administered on 01/12/17 11:41; Start 01/12/17 at 11:15; Stop 01/12/17 at 11:20; Status DC Fentanyl Citrate (Fentanyl 5ml Vial) 250 mcg 1X ONCE IV Last administered on 01/12/17 11:45; Start 01/12/17 at 11:15; Stop 01/12/17 at 11:20; Status DC Iohexol (Omnipaque 300 Mg/ml) 50 ml 1X ONCE IART Last administered on 11:45; Start 01/12/17 at 11:15; Stop 01/12/17 at 11:20; Status DC Cefazolin Sodium/ Dextrose 50 ml @ 100 mls/hr 1X ONCE IV Last administered on 01/12/17 11:04; Start 01/12/17 at 11:15; Stop 01/12/17 at 11:44; Status DC Apixaban (Eliquis) 5 mg BID PO Last administered on 01/16/17 08:31; Start 01/12/17 at 21:00 Lidocaine HCl (Xylocaine 2% Topical 30gm Tube) 1 qamar 1X ONCE TP Last administered on 01/13/17 10:24; Start 01/13/17 at 10:15; Stop 01/13/17 at 10:20 ; Status DC Benzocaine (Hurricaine One) 2 spray 1X ONCE MM Last administered on 01/13/17 10:24; Start 01/13/17 at 10:15; Stop 01/13/17 at 10:20; Status DC Lidocaine HCl (Viscous Lidocaine) 15 ml 1X ONCE SWSW Last administered on 01/13 10:25; Start 01/13/17 at 10:15; Stop 01/13/17 at 10:20; Status DC Propofol 20 ml @ As Directed STK-MED ONCE IV ; Start 01/13/17 at 11:10; Stop at 11:11; Status DC Amiodarone HCl (Cordarone) 200 mg BID PO Last administered on 01/16/17 08:32; Start 01/13/17 at 21:00 Tramadol HCl (Ultram) 50 mg 1X ONCE PO Last administered on 01/14/17 14:09; Start 01/14/17 at 13:30; Stop 01/14/17 at 13:31; Status DC Tramadol HCl (Ultram) 50 mg PRN Q6HRS PRN PO PAIN; Start 01/14/17 at 13:30 Oxycodone/ Acetaminophen (Percocet 7.5/ 325) 1 tab PRN Q4HRS PRN PO MODERATE TO SEVERE PAIN Last administered on 01/16/17 10:54; Start 01/16/17 at 10:00 Active Scripts Active Reported Colace (Docusate Sodium) 100 Mg Capsule 100 Mg PO BID PRN Hydrocodone-Apap 5-325 (Hydrocodone Bit/Acetaminophen) 1 Each Tablet 1 Tab PO PRN Q6HRS PRN Cyclobenzaprine Hcl 10 Mg Tablet 1 Tab PO TID Ibuprofen 600 Mg Tablet 600 Mg PO PRN Q6HRS PRN Simvastatin 40 Mg Tablet 1 Tab PO QHS Losartan-Hctz 100-25 Mg Tab (Losartan/Hydrochlorothiazide) 1 Each Tablet 1 Tab PO DAILY Zoloft (Sertraline Hcl) 100 Mg Tablet 1 Tab PO DAILY Vitals/I & O Vital Sign - Last 24 Hours 01/15/17 01/15/17 01/15/17 01/15/17 15:21 19:20 20:00 20:54 Temp 98.3 98.3 Pulse 95 94 Resp 20 18 B/P (MAP) 148/77 (100) 148/77 Pulse Ox 93 97 O2 Delivery Nasal Cannula Nasal Cannula Nasal Cannula O2 Flow Rate 2.0 2.0 01/15/17 01/15/17 01/15/17 01/16/17 20:55 21:55 23:50 02:47 Temp 97.9 98.0 97.9 98.0 Pulse 94 100 Resp 18 18 B/P (MAP) 124/77 (93) 129/70 (89) Pulse Ox 97 96 O2 Delivery Nasal Cannula Nasal Cannula Nasal Cannula Nasal Cannula O2 Flow Rate 2.0 2.0 2.0 2.0 01/16/17 01/16/17 01/16/17 01/16/17 07:00 08:00 08:32 08:32 Temp 97.4 97.4 Pulse 99 99 99 Resp 19 B/P (MAP) 111/64 (80) 111/64 111/64 Pulse Ox 93 O2 Delivery Nasal Cannula Nasal Cannula O2 Flow Rate 2.0 2.0 01/16/17 01/16/17 01/16/17 01/16/17 08:32 08:33 10:54 11:00 Temp 97.9 97.9 Pulse 99 93 Resp 18 18 17 B/P (MAP) 111/64 109/67 (81) Pulse Ox 93 93 94 O2 Delivery Nasal Cannula Nasal Cannula Nasal Cannula O2 Flow Rate 2.0 2.0 2.0 01/16/17 12:27 Resp 16 Pulse Ox 94 O2 Delivery Nasal Cannula O2 Flow Rate 2.0 WOJCIECH LOYA MD Jan 16, 2017 13:42
[2017-01-16] MEDS ORDERED: DOCUSATE SODIUM 100 MG CAPSULE. PO PRN (13:45)
[2017-01-16] MEDS ORDERED: ONDANSETRON PF 4 MG/2 ML VIAL. IV PRN (13:45)
[2017-01-16] MEDS ORDERED: hydrALAZINE 20 MG/ML VIAL. IVP PRN (13:45)
[2017-01-16] MEDS ORDERED: traMADol 50 MG TABLET PO PRN (13:45)
[2017-01-16] MEDS ORDERED: ACETAMINOPHEN 325 MG TABLET. PO PRN (13:45)
[2017-01-16] MEDS ORDERED: MORPHINE SULFATE 2 MG/ML DISP.SYRIN. IV PRN (13:45)
[2017-01-16 15:00] VITALS: BP 128/63
[2017-01-16 19:55] VITALS: BP 119/65
[2017-01-16] MEDS: ATORVASTATIN CALCIUM 20 MG TABLET PO SCH (20:47)
[2017-01-16 23:30] VITALS: BP 111/78
[2017-01-17 03:55] VITALS: BP 139/72
[2017-01-17 07:00] VITALS: BP 133/79
[2017-01-17] MEDS: POLYETHYLENE GLYCOL 3350 17 GM PACKET. PO SCH (08:02)
[2017-01-17] MEDS: APIXABAN 5 MG TABLET. PO SCH ×2 (08:02→21:33)
[2017-01-17] MEDS: BISACODYL 5 MG TABLET.DR. PO SCH (08:02)
[2017-01-17] MEDS: CYCLOBENZAPRINE 10 MG TABLET. PO PRN ×3 (08:02→21:34)
[2017-01-17] MEDS: hydroCHLOROthiazide 25 MG TABLET PO SCH (08:02)
[2017-01-17] MEDS: PANTOPRAZOLE 40 MG TABLET.DR. PO SCH (08:02)
[2017-01-17] MEDS: AMIODARONE HCL 200 MG TABLET. PO SCH ×2 (08:03→21:33)
[2017-01-17] MEDS: SERTRALINE 50 MG TABLET. PO SCH (08:04)
[2017-01-17] MEDS: LOSARTAN POTASSIUM 50 MG TABLET. PO SCH (08:04)
[2017-01-17] MEDS: LIDOCAINE (700MG/PATCH) PATCH. TD SCH (08:05)
[2017-01-17] MEDS: oxyCODONE/APAP 7.5/325 1 TAB TABLET PO PRN (08:05)
[2017-01-17 08:11] LABS: BASO % 1 % (0-3); EOS % 3 % (0-3); HEMATOCRIT 46.9 % (36.0-47.0); HEMOGLOBIN 15.8 g/dL (12.0-15.5); LYMPH # 1.5 x10^3/uL (1.0-4.8); LYMPH % 22 % (24-48); MEAN CORPUSCULAR HEMOGLOBIN 34 pg (25-35); MEAN CORPUSCULAR HGB CONC 34 g/dL (31-37); MEAN CORPUSCULAR VOLUME 99 fL (79-100); MONO % 11 % (0-9); NEUT % 64 % (31-73); PLATELET COUNT 179 x10^3/uL (140-400); RED BLOOD COUNT 4.72 x10^6/uL (3.50-5.40); RED CELL DISTRIBUTION WIDTH 13.9 % (11.5-14.5); WHITE BLOOD COUNT 6.7 x10^3/uL (4.0-11.0)
[2017-01-17 08:29] LABS: CALCIUM 9.3 mg/dL (8.5-10.1); CREATININE 0.7 mg/dL (0.6-1.0); GFR 83.2
[2017-01-17] MEDS ORDERED: POTASSIUM CHLORIDE 20 MEQ TABLET.ER. PO ONE (09:45)
[2017-01-17 11:00] VITALS: BP 129/80
--- NOTE | 2017-01-17 13:51 | PDOC ---
PROGRESS NOTES Chief Complaint Chief Complaint 1. New atrial fib/flutter RVR s/p MCKAYLA no thrombus s/p cardioversion but failed, planned for repeat OP cardioversion 4 weeks if not conversion 2. Obesity BMI 36 3. Recent fall with back injury 4. Acute back pain no resolve with PO pain meds 5. HTN, dyslipidemia - chronic stable 6. Ex smoker - quit 30 yrs ago 7. Disc Bulge 2, L2, compression fx L1, recent - s/p kyphoplasty 01/12/17 for L1 compressive fx hypokalemia plan: fu with card, no further intervention for now add percocet for pain, decrease to 5/325, asked pt to take it before PT no neurosx needs to be done on eliquis PTOT replete K see how pt walks today with PT, otherwise may need steroid shot with dr. Susan knutsonr? History of Present Illness History of Present Illness ROS: no fever, chills, sob or chest pain still severe lower back / hip pain 10/10 when ambulate, no pain if lying in bed constipation ok with stool softner Vitals Vitals Vital Signs Date Time Temp Pulse Resp B/P (MAP) Pulse Ox O2 Delivery O2 Flow Rate FiO2 01/17/17 11:00 97.5 94 19 129/80 (96) 94 Nasal Cannula 2.0 97.5 Physical Exam General: Alert, Oriented X3, Cooperative, No acute distress Heart: Regular rate, Normal S1, Normal S2 Lungs: Clear Abdomen: Normal bowel sounds, Soft, No tenderness, No hepatosplenomegaly, No masses Extremities: No clubbing, No cyanosis, No edema, Normal pulses, No tenderness/ swelling Skin: No rashes, No breakdown, No significant lesion Labs LABS Laboratory Tests Test 01/17/17 07:13 White Blood Count 6.7 x10^3/uL (4.0-11.0) Red Blood Count 4.72 x10^6/uL (3.50-5.40) Hemoglobin 15.8 g/dL (12.0-15.5) Hematocrit 46.9 % (36.0-47.0) Mean Corpuscular Volume 99 fL (79-100) Mean Corpuscular Hemoglobin 34 pg (25-35) Mean Corpuscular Hemoglobin Concent 34 g/dL (31-37) Red Cell Distribution Width 13.9 % (11.5-14.5) Platelet Count 179 x10^3/uL (140-400) Neutrophils (%) (Auto) 64 % (31-73) Lymphocytes (%) (Auto) 22 % (24-48) Monocytes (%) (Auto) 11 % (0-9) Eosinophils (%) (Auto) 3 % (0-3) Basophils (%) (Auto) 1 % (0-3) Neutrophils # (Auto) 4.3 x10^3uL (1.8-7.7) Lymphocytes # (Auto) 1.5 x10^3/uL (1.0-4.8) Monocytes # (Auto) 0.7 x10^3/uL (0.0-1.1) Eosinophils # (Auto) 0.2 x10^3/uL (0.0-0.7) Basophils # (Auto) 0.0 x10^3/uL (0.0-0.2) Sodium Level 138 mmol/L (136-145) Potassium Level 3.0 mmol/L (3.5-5.1) Chloride Level 95 mmol/L (98-107) Carbon Dioxide Level 38 mmol/L (21-32) Anion Gap 5 (6-14) Blood Urea Nitrogen 17 mg/dL (7-20) Creatinine 0.7 mg/dL (0.6-1.0) Estimated GFR (Cockcroft-Gault) 83.2 Glucose Level 94 mg/dL (70-99) Calcium Level 9.3 mg/dL (8.5-10.1) Comment Review of Relevant I have reviewed the following items peter (where applicable) has been applied. Labs Laboratory Tests Test 01/17/17 07:13 White Blood Count 6.7 x10^3/uL (4.0-11.0) Red Blood Count 4.72 x10^6/uL (3.50-5.40) Hemoglobin 15.8 g/dL (12.0-15.5) Hematocrit 46.9 % (36.0-47.0) Mean Corpuscular Volume 99 fL (79-100) Mean Corpuscular Hemoglobin 34 pg (25-35) Mean Corpuscular Hemoglobin Concent 34 g/dL (31-37) Red Cell Distribution Width 13.9 % (11.5-14.5) Platelet Count 179 x10^3/uL (140-400) Neutrophils (%) (Auto) 64 % (31-73) Lymphocytes (%) (Auto) 22 % (24-48) Monocytes (%) (Auto) 11 % (0-9) Eosinophils (%) (Auto) 3 % (0-3) Basophils (%) (Auto) 1 % (0-3) Neutrophils # (Auto) 4.3 x10^3uL (1.8-7.7) Lymphocytes # (Auto) 1.5 x10^3/uL (1.0-4.8) Monocytes # (Auto) 0.7 x10^3/uL (0.0-1.1) Eosinophils # (Auto) 0.2 x10^3/uL (0.0-0.7) Basophils # (Auto) 0.0 x10^3/uL (0.0-0.2) Sodium Level 138 mmol/L (136-145) Potassium Level 3.0 mmol/L (3.5-5.1) Chloride Level 95 mmol/L (98-107) Carbon Dioxide Level 38 mmol/L (21-32) Anion Gap 5 (6-14) Blood Urea Nitrogen 17 mg/dL (7-20) Creatinine 0.7 mg/dL (0.6-1.0) Estimated GFR (Cockcroft-Gault) 83.2 Glucose Level 94 mg/dL (70-99) Calcium Level 9.3 mg/dL (8.5-10.1) Laboratory Tests Test 01/17/17 07:13 White Blood Count 6.7 x10^3/uL (4.0-11.0) Red Blood Count 4.72 x10^6/uL (3.50-5.40) Hemoglobin 15.8 g/dL (12.0-15.5) Hematocrit 46.9 % (36.0-47.0) Mean Corpuscular Volume 99 fL (79-100) Mean Corpuscular Hemoglobin 34 pg (25-35) Mean Corpuscular Hemoglobin Concent 34 g/dL (31-37) Red Cell Distribution Width 13.9 % (11.5-14.5) Platelet Count 179 x10^3/uL (140-400) Neutrophils (%) (Auto) 64 % (31-73) Lymphocytes (%) (Auto) 22 % (24-48) Monocytes (%) (Auto) 11 % (0-9) Eosinophils (%) (Auto) 3 % (0-3) Basophils (%) (Auto) 1 % (0-3) Neutrophils # (Auto) 4.3 x10^3uL (1.8-7.7) Lymphocytes # (Auto) 1.5 x10^3/uL (1.0-4.8) Monocytes # (Auto) 0.7 x10^3/uL (0.0-1.1) Eosinophils # (Auto) 0.2 x10^3/uL (0.0-0.7) Basophils # (Auto) 0.0 x10^3/uL (0.0-0.2) Sodium Level 138 mmol/L (136-145) Potassium Level 3.0 mmol/L (3.5-5.1) Chloride Level 95 mmol/L (98-107) Carbon Dioxide Level 38 mmol/L (21-32) Anion Gap 5 (6-14) Blood Urea Nitrogen 17 mg/dL (7-20) Creatinine 0.7 mg/dL (0.6-1.0) Estimated GFR (Cockcroft-Gault) 83.2 Glucose Level 94 mg/dL (70-99) Calcium Level 9.3 mg/dL (8.5-10.1) Medications Current Medications Hydromorphone HCl (Dilaudid) 1 mg 1X ONCE IV Last administered on 01/08/17 18 :56; Start 01/08/17 at 18:15; Stop 01/08/17 at 18:16; Status DC Ondansetron HCl (Zofran) 4 mg 1X ONCE IV Last administered on 01/08/17 18:55 ; Start 01/08/17 at 18:15; Stop 01/08/17 at 18:16; Status DC Sodium Chloride 1,000 ml @ 1,000 mls/hr 1X ONCE IV Last administered on 18:52; Start 01/08/17 at 18:15; Stop 01/08/17 at 19:14; Status DC Diltiazem HCl 125 mg/Dextrose 125 ml @ 0 mls/hr CONT PRN IV SEE I/O RECORD Last administered on 01/09/17 06:14; Start 01/08/17 at 18:15; Stop 01/11/17 at 10:43; Status DC Diltiazem HCl (Cardizem) 10 mg 1X ONCE IVP Last administered on 01/08/17 18: 53; Start 01/08/17 at 18:15; Stop 01/08/17 at 18:16; Status DC Ondansetron HCl (Zofran) 4 mg PRN Q8HRS PRN IV NAUSEA/VOMITING; Start 01/08/17 at 19:15; Stop 01/08/17 at 19:25; Status DC Fentanyl Citrate (Fentanyl 2ml Vial) 50 mcg PRN Q2HR PRN IV PAIN Last administered on 01/09/17 04:22; Start 01/08/17 at 19:15; Stop 01/09/17 at 19:14 ; Status DC Acetaminophen (Tylenol) 650 mg PRN Q4HRS PRN PO FEVER; Start 01/08/17 at 19:15 ; Stop 01/09/17 at 19:14; Status DC Nitroglycerin (Nitrostat) 0.4 mg PRN Q5MIN PRN SL CHEST PAIN; Start 01/08/17 at 19:15; Stop 01/09/17 at 19:14; Status DC Ondansetron HCl (Zofran) 4 mg PRN Q6HRS PRN IV NAUSEA/VOMITING Last administered on 01/09/17 07:22; Start 01/08/17 at 19:30; Stop 01/09/17 at 19:29 ; Status DC Cyclobenzaprine HCl (Flexeril) 10 mg TID PO Last administered on 01/09/17 09: 23; Start 01/08/17 at 21:00; Stop 01/09/17 at 11:12; Status DC Ibuprofen (Motrin) 600 mg TID PO Last administered on 01/09/17 09:24; Start at 21:00; Stop 01/09/17 at 11:12; Status DC Lidocaine (Lidoderm) 1 patch DAILY TD Last administered on 01/17/17 08:05; Start 01/08/17 at 19:30 Ondansetron HCl (Zofran) 4 mg PRN Q6HRS PRN IV NAUSEA/VOMITING; Start 01/08/17 at 19:30; Stop 01/09/17 at 19:29; Status UNV Enoxaparin Sodium (Lovenox 40mg Syringe) 40 mg Q24H SQ Last administered on 09:24; Start 01/09/17 at 09:00; Stop 01/09/17 at 10:55; Status DC Polyethylene Glycol (miraLAX PACKET) 17 gm DAILY PO Last administered on 08:02; Start 01/09/17 at 09:30 Magnesium Hydroxide (Milk Of Magnesia) 2,400 mg PRN DAILY PRN PO CONSTIPATION Last administered on 01/15/17 08:43; Start 01/09/17 at 09:00 Heparin Sodium (Porcine) (Heparin Sq) 5,000 unit Q8HRS SQ ; Start 01/09/17 at 14 :00; Stop 01/09/17 at 14:00; Status DC Cyclobenzaprine HCl (Flexeril) 10 mg PRN Q6HRS PRN PO MUSCLE SPASMS Last administered on 01/17/17 08:02; Start 01/10/17 at 09:00 Methylprednisolone (Medrol) 8 mg BID PO Last administered on 01/09/17 21:06; Start 01/09/17 at 11:30; Stop 01/09/17 at 21:01; Status DC Methylprednisolone (Medrol) 4 mg BIDPCLD PO Last administered on 01/09/17 18: 30; Start 01/09/17 at 12:30; Stop 01/09/17 at 17:31; Status DC Methylprednisolone (Medrol) 4 mg TIDPC PO Last administered on 01/10/17 18:27 ; Start 01/10/17 at 08:30; Stop 01/10/17 at 17:31; Status DC Methylprednisolone (Medrol) 8 mg QHS PO Last administered on 01/10/17 20:46; Start 01/10/17 at 21:00; Stop 01/10/17 at 21:01; Status DC Methylprednisolone (Medrol) 4 mg QIDAFTMEAL PO Last administered on 01/11/17 22:51; Start 01/11/17 at 09:00; Stop 01/11/17 at 21:01; Status DC Methylprednisolone (Medrol) 4 mg TID PO Last administered on 01/12/17 21:28; Start 01/12/17 at 09:00; Stop 01/12/17 at 21:01; Status DC Methylprednisolone (Medrol) 4 mg BID PO Last administered on 01/13/17 21:16; Start 01/13/17 at 09:00; Stop 01/13/17 at 21:01; Status DC Methylprednisolone (Medrol) 4 mg DAILY PO Last administered on 01/14/17 08:45 ; Start 01/14/17 at 09:00; Stop 01/14/17 at 09:01; Status DC Pantoprazole Sodium (Protonix) 40 mg DAILYAC PO Last administered on 01/17/17 08:02; Start 01/09/17 at 11:30 Acetaminophen/ Hydrocodone Bitart (Lortab 10/325) 1 tab PRN Q6HRS PRN PO PAIN Last administered on 01/10/17 06:47; Start 01/09/17 at 11:15; Stop 01/10/17 at 12:09; Status DC Bisacodyl (Dulcolax Supp) 10 mg PRN DAILY PRN LA CONSTIPATION; Start 01/09/17 at 11:30 Bisacodyl (Dulcolax Tab) 10 mg DAILY PO Last administered on 01/17/17 08:02; Start 01/09/17 at 12:00 Magnesium Citrate (Citroma) 296 ml PRN 1X PRN PO CONSTIPATION Last administered on 01/09/17 15:41; Start 01/09/17 at 11:30 Apixaban (Eliquis) 5 mg BID PO Last administered on 01/11/17 09:00; Start at 14:30; Stop 01/11/17 at 10:38; Status DC Diltiazem HCl (Cardizem 24hr Cd) 120 mg DAILY PO Last administered on 08:59; Start 01/09/17 at 14:30; Stop 01/11/17 at 10:43; Status DC Info (Anti-Coagulation Monitoring By Pharmacy) 1 each PRN DAILY PRN MC SEE COMMENTS Last administered on 01/13/17 09:53; Start 01/09/17 at 14:00 Simvastatin (Zocor) 40 mg QHS PO Last administered on 01/10/17 20:46; Start at 21:00; Stop 01/11/17 at 10:45; Status DC Losartan Potassium (Cozaar) 100 mg DAILY PO Last administered on 01/11/17 09: 00; Start 01/10/17 at 09:00; Stop 01/11/17 at 10:43; Status DC Sertraline HCl (Zoloft) 100 mg DAILY PO Last administered on 01/17/17 08:04; Start 01/10/17 at 09:00 Hydrochlorothiazide (Hydrodiuril) 25 mg DAILY PO Last administered on 08:02; Start 01/10/17 at 09:00; Stop 01/17/17 at 09:41; Status DC Sertraline HCl (Zoloft) 100 mg 1X ONCE PO Last administered on 01/09/17 21:07 ; Start 01/09/17 at 21:00; Stop 01/09/17 at 21:01; Status DC Acetaminophen/ Hydrocodone Bitart (Lortab 10/325) 1 tab PRN Q4HRS PRN PO PAIN Last administered on 01/16/17 08:33; Start 01/10/17 at 12:15; Stop 01/16/17 at 09:56; Status DC Aspirin (Ecotrin) 325 mg 1X ONCE PO Last administered on 01/11/17 11:34; Start 01/11/17 at 10:45; Stop 01/11/17 at 10:46; Status DC Diltiazem HCl (Cardizem 24hr Cd) 240 mg DAILY PO Last administered on 08:04; Start 01/12/17 at 09:00 Losartan Potassium (Cozaar) 50 mg DAILY PO Last administered on 01/17/17 08:04 ; Start 01/12/17 at 09:00 Atorvastatin Calcium (Lipitor) 20 mg QHS PO Last administered on 01/16/17 20: 47; Start 01/11/17 at 21:00 Morphine Sulfate 2 mg PRN Q4HRS PRN IV PAIN SEVERE; Start 01/11/17 at 20:15; Stop 01/17/17 at 09:01; Status DC Ondansetron HCl (Zofran) 4 mg PRN Q6HRS PRN IV NAUSEA/VOMITING; Start 01/13/17 at 07:00; Stop 01/14/17 at 06:59; Status DC Fentanyl Citrate (Fentanyl 2ml Vial) 25 mcg PRN Q5MIN PRN IV MILD PAIN; Start 01/13/17 at 07:00; Stop 01/14/17 at 06:59; Status DC Fentanyl Citrate (Fentanyl 2ml Vial) 50 mcg PRN Q5MIN PRN IV MODERATE PAIN Last administered on 01/13/17 11:48; Start 01/13/17 at 07:00; Stop 01/14/17 at 06:59; Status DC Morphine Sulfate 1 mg PRN Q10MIN PRN IV SEVERE PAIN; Start 01/13/17 at 07:00; Stop 01/14/17 at 06:59; Status DC Ringer's Solution 1,000 ml @ 30 mls/hr Q24H IV Last administered on 01/13/17 10:05; Start 01/13/17 at 07:00; Stop 01/13/17 at 18:59; Status DC Lidocaine HCl (Xylocaine-Mpf 1% Vial) 2 ml PRN 1X PRN ID IV START Last administered on 01/13/17 10:08; Start 01/13/17 at 07:00; Stop 01/14/17 at 06:59 ; Status DC Hydromorphone HCl (Dilaudid) 0.5 mg PRN Q10MIN PRN IV SEV PAIN, Second choice; Start 01/13/17 at 07:00; Stop 01/14/17 at 06:59; Status DC Prochlorperazine Edisylate (Compazine) 5 mg PACU PRN PRN IV NAUSEA, MRX1; Start 01/13/17 at 07:00; Stop 01/14/17 at 06:59; Status DC Lidocaine/Sodium Bicarbonate (Buffered Lidocaine 1%) 20 ml STK-MED ONCE IJ ; Start 01/12/17 at 10:24; Stop 01/12/17 at 10:25; Status DC Iohexol (Omnipaque 300 Mg/ml) 50 ml STK-MED ONCE .ROUTE ; Start 01/12/17 at 10: 26; Stop 01/12/17 at 10:27; Status DC Midazolam HCl (Versed) 5 mg STK-MED ONCE .ROUTE ; Start 01/12/17 at 10:44; Stop 01/12/17 at 10:45; Status DC Fentanyl Citrate (Fentanyl 5ml Vial) 250 mcg STK-MED ONCE .ROUTE ; Start at 10:44; Stop 01/12/17 at 10:45; Status DC Cefazolin Sodium/ Dextrose 50 ml @ As Directed STK-MED ONCE IV ; Start 01/12/17 at 10:45; Stop 01/12/17 at 10:46; Status DC Lidocaine/Sodium Bicarbonate (Buffered Lidocaine 1%) 20 ml 1X ONCE IJ Last administered on 01/12/17 11:40; Start 01/12/17 at 11:15; Stop 01/12/17 at 11:20 ; Status DC Midazolam HCl (Versed) 5 mg 1X ONCE IV Last administered on 01/12/17 11:41; Start 01/12/17 at 11:15; Stop 01/12/17 at 11:20; Status DC Fentanyl Citrate (Fentanyl 5ml Vial) 250 mcg 1X ONCE IV Last administered on 01/12/17 11:45; Start 01/12/17 at 11:15; Stop 01/12/17 at 11:20; Status DC Iohexol (Omnipaque 300 Mg/ml) 50 ml 1X ONCE IART Last administered on 11:45; Start 01/12/17 at 11:15; Stop 01/12/17 at 11:20; Status DC Cefazolin Sodium/ Dextrose 50 ml @ 100 mls/hr 1X ONCE IV Last administered on 01/12/17 11:04; Start 01/12/17 at 11:15; Stop 01/12/17 at 11:44; Status DC Apixaban (Eliquis) 5 mg BID PO Last administered on 01/17/17 08:02; Start 01/12/17 at 21:00 Lidocaine HCl (Xylocaine 2% Topical 30gm Tube) 1 qamar 1X ONCE TP Last administered on 01/13/17 10:24; Start 01/13/17 at 10:15; Stop 01/13/17 at 10:20 ; Status DC Benzocaine (Hurricaine One) 2 spray 1X ONCE MM Last administered on 01/13/17 10:24; Start 01/13/17 at 10:15; Stop 01/13/17 at 10:20; Status DC Lidocaine HCl (Viscous Lidocaine) 15 ml 1X ONCE SWSW Last administered on 01/13 10:25; Start 01/13/17 at 10:15; Stop 01/13/17 at 10:20; Status DC Propofol 20 ml @ As Directed STK-MED ONCE IV ; Start 01/13/17 at 11:10; Stop at 11:11; Status DC Amiodarone HCl (Cordarone) 200 mg BID PO Last administered on 01/17/17 08:03; Start 01/13/17 at 21:00 Tramadol HCl (Ultram) 50 mg 1X ONCE PO Last administered on 01/14/17 14:09; Start 01/14/17 at 13:30; Stop 01/14/17 at 13:31; Status DC Tramadol HCl (Ultram) 50 mg PRN Q6HRS PRN PO PAIN; Start 01/14/17 at 13:30 Oxycodone/ Acetaminophen (Percocet 7.5/ 325) 1 tab PRN Q4HRS PRN PO MODERATE TO SEVERE PAIN Last administered on 01/17/17 08:05; Start 01/16/17 at 10:00; Stop 01/17/17 at 09:39; Status DC Acetaminophen (Tylenol) 650 mg PRN Q6HRS PRN PO FEVER; Start 01/16/17 at 13:45 Ondansetron HCl (Zofran) 4 mg PRN Q6HRS PRN IV NAUSEA/VOMITING; Start 01/16/17 at 13:45 Morphine Sulfate 2 mg PRN Q2HR PRN IV PAIN; Start 01/16/17 at 13:45 Tramadol HCl (Ultram) 50 mg PRN Q6HRS PRN PO PAIN; Start 01/16/17 at 13:45; Stop 01/17/17 at 09:39; Status DC Hydralazine HCl (Apresoline) 10 mg PRN Q4HRS PRN IVP ELEVATED BP, SEE COMMENTS ; Start 01/16/17 at 13:45 Docusate Sodium (Colace) 100 mg PRN DAILY PRN PO CONSTIPATION; Start 01/16/17 at 13:45 Oxycodone/ Acetaminophen (Percocet 5/325) 1 tab PRN Q4HRS PRN PO PAIN; Start 01/17/17 at 09:45 Potassium Chloride (Klor-Con) 40 meq 1X ONCE PO Last administered on 10:20; Start 01/17/17 at 09:45; Stop 01/17/17 at 09:46; Status DC Active Scripts Active Reported Colace (Docusate Sodium) 100 Mg Capsule 100 Mg PO BID PRN Hydrocodone-Apap 5-325 (Hydrocodone Bit/Acetaminophen) 1 Each Tablet 1 Tab PO PRN Q6HRS PRN Cyclobenzaprine Hcl 10 Mg Tablet 1 Tab PO TID Ibuprofen 600 Mg Tablet 600 Mg PO PRN Q6HRS PRN Simvastatin 40 Mg Tablet 1 Tab PO QHS Losartan-Hctz 100-25 Mg Tab (Losartan/Hydrochlorothiazide) 1 Each Tablet 1 Tab PO DAILY Zoloft (Sertraline Hcl) 100 Mg Tablet 1 Tab PO DAILY Vitals/I & O Vital Sign - Last 24 Hours 01/16/17 01/16/17 01/16/17 01/16/17 15:00 19:30 19:55 20:47 Temp 97.9 98.0 97.9 98.0 Pulse 90 91 91 Resp 19 16 B/P (MAP) 128/63 (84) 119/65 (83) 119/65 Pulse Ox 94 94 O2 Delivery Nasal Cannula Nasal Cannula Room Air O2 Flow Rate 2.0 2.0 2.0 01/16/17 01/16/17 01/16/17 01/17/17 20:48 21:48 23:30 03:55 Temp 97.8 97.6 97.8 97.6 Pulse 92 84 Resp 20 20 16 16 B/P (MAP) 111/78 (89) 139/72 (94) Pulse Ox 94 94 93 95 O2 Delivery Nasal Cannula Nasal Cannula Nasal Cannula Nasal Cannula O2 Flow Rate 2.0 2.0 3.0 2.0 01/17/17 01/17/17 01/17/17 01/17/17 07:00 08:00 08:03 08:04 Temp 98.2 98.2 Pulse 99 99 99 Resp 20 B/P (MAP) 133/79 (97) 133/79 133/79 Pulse Ox 95 O2 Delivery Nasal Cannula Nasal Cannula O2 Flow Rate 2.0 2.0 01/17/17 01/17/17 01/17/17 08:04 08:05 11:00 Temp 97.5 97.5 Pulse 99 94 Resp 16 19 B/P (MAP) 133/79 129/80 (96) Pulse Ox 94 O2 Delivery Room Air Nasal Cannula O2 Flow Rate 2.0 2.0 WOJCIECH LOYA MD Jan 17, 2017 13:51
[2017-01-17] MEDS: oxyCODONE/APAP 5/325 1 TAB TABLET PO PRN ×3 (13:56→23:23)
[2017-01-17 15:00] VITALS: BP 109/66
[2017-01-17 19:45] VITALS: BP 112/76
[2017-01-17] MEDS: ATORVASTATIN CALCIUM 20 MG TABLET PO SCH (21:34)
[2017-01-17 23:35] VITALS: BP 110/76
[2017-01-18 03:35] VITALS: BP 107/70
[2017-01-18 07:36] VITALS: BP 110/71
[2017-01-18] MEDS: PANTOPRAZOLE 40 MG TABLET.DR. PO SCH (08:46)
[2017-01-18] MEDS: APIXABAN 5 MG TABLET. PO SCH ×2 (08:47→20:25)
[2017-01-18] MEDS: CYCLOBENZAPRINE 10 MG TABLET. PO PRN ×2 (08:47→15:52)
[2017-01-18] MEDS: BISACODYL 5 MG TABLET.DR. PO SCH (08:47)
[2017-01-18] MEDS: AMIODARONE HCL 200 MG TABLET. PO SCH ×2 (08:47→20:25)
[2017-01-18] MEDS: oxyCODONE/APAP 5/325 1 TAB TABLET PO PRN ×2 (08:48→15:52)
[2017-01-18] MEDS: POLYETHYLENE GLYCOL 3350 17 GM PACKET. PO SCH (08:48)
[2017-01-18] MEDS: LOSARTAN POTASSIUM 50 MG TABLET. PO SCH (08:48)
[2017-01-18] MEDS: SERTRALINE 50 MG TABLET. PO SCH (08:48)
[2017-01-18] MEDS: LIDOCAINE (700MG/PATCH) PATCH. TD SCH (08:49)
[2017-01-18] MEDS: ANTI-COAG MONITOR BY PHARMACY. MC PRN (10:15)
[2017-01-18 10:18] VITALS: BP 113/72
[2017-01-18] MEDS: oxyCODONE ER 10 MG TAB.ER.12H PO SCH ×2 (13:15→20:25)
[2017-01-18 14:24] VITALS: BP 112/69
--- NOTE | 2017-01-18 14:32 | PDOC ---
PROGRESS NOTES Chief Complaint Chief Complaint 1. New atrial fib/flutter RVR s/p MCKAYLA no thrombus s/p cardioversion but failed, planned for repeat OP cardioversion 4 weeks if not conversion 2. Obesity BMI 36 3. Recent fall with back injury 4. Acute back pain no resolve with PO pain meds 5. HTN, dyslipidemia - chronic stable 6. Ex smoker - quit 30 yrs ago 7. Disc Bulge 2, L2, compression fx L1, recent - s/p kyphoplasty 01/12/17 for L1 compressive fx hypokalemia plan: fu with card, no further intervention for now add percocet for pain, decrease to 5/325, asked pt to take it before PT,BUT not help, add oxycontin 10mg bid no neurosx needs to be done on eliquis PTOT replete K steroid shot with dr. [facility] tmr History of Present Illness History of Present Illness ROS: no fever, chills, sob or chest pain still severe lower back / hip pain 10/10 when ambulate, no pain if lying in bed , crying constipation ok with stool softner Vitals Vitals Vital Signs Date Time Temp Pulse Resp B/P (MAP) Pulse Ox O2 Delivery O2 Flow Rate FiO2 01/18/17 14:24 97.7 86 21 112/69 (83) 97.7 01/18/17 13:15 Nasal Cannula 2.0 01/18/17 08:48 96 Physical Exam General: Alert, Oriented X3, Cooperative, No acute distress Heart: Regular rate, Normal S1, Normal S2 Lungs: Clear Abdomen: Normal bowel sounds, Soft, No tenderness, No hepatosplenomegaly, No masses Extremities: No clubbing, No cyanosis, No edema, Normal pulses, No tenderness/ swelling Skin: No rashes, No breakdown, No significant lesion Comment Review of Relevant I have reviewed the following items peter (where applicable) has been applied. Labs Laboratory Tests Test 01/17/17 07:13 White Blood Count 6.7 x10^3/uL (4.0-11.0) Red Blood Count 4.72 x10^6/uL (3.50-5.40) Hemoglobin 15.8 g/dL (12.0-15.5) Hematocrit 46.9 % (36.0-47.0) Mean Corpuscular Volume 99 fL (79-100) Mean Corpuscular Hemoglobin 34 pg (25-35) Mean Corpuscular Hemoglobin Concent 34 g/dL (31-37) Red Cell Distribution Width 13.9 % (11.5-14.5) Platelet Count 179 x10^3/uL (140-400) Neutrophils (%) (Auto) 64 % (31-73) Lymphocytes (%) (Auto) 22 % (24-48) Monocytes (%) (Auto) 11 % (0-9) Eosinophils (%) (Auto) 3 % (0-3) Basophils (%) (Auto) 1 % (0-3) Neutrophils # (Auto) 4.3 x10^3uL (1.8-7.7) Lymphocytes # (Auto) 1.5 x10^3/uL (1.0-4.8) Monocytes # (Auto) 0.7 x10^3/uL (0.0-1.1) Eosinophils # (Auto) 0.2 x10^3/uL (0.0-0.7) Basophils # (Auto) 0.0 x10^3/uL (0.0-0.2) Sodium Level 138 mmol/L (136-145) Potassium Level 3.0 mmol/L (3.5-5.1) Chloride Level 95 mmol/L (98-107) Carbon Dioxide Level 38 mmol/L (21-32) Anion Gap 5 (6-14) Blood Urea Nitrogen 17 mg/dL (7-20) Creatinine 0.7 mg/dL (0.6-1.0) Estimated GFR (Cockcroft-Gault) 83.2 Glucose Level 94 mg/dL (70-99) Calcium Level 9.3 mg/dL (8.5-10.1) Medications Current Medications Hydromorphone HCl (Dilaudid) 1 mg 1X ONCE IV Last administered on 01/08/17 18 :56; Start 01/08/17 at 18:15; Stop 01/08/17 at 18:16; Status DC Ondansetron HCl (Zofran) 4 mg 1X ONCE IV Last administered on 01/08/17 18:55 ; Start 01/08/17 at 18:15; Stop 01/08/17 at 18:16; Status DC Sodium Chloride 1,000 ml @ 1,000 mls/hr 1X ONCE IV Last administered on 18:52; Start 01/08/17 at 18:15; Stop 01/08/17 at 19:14; Status DC Diltiazem HCl 125 mg/Dextrose 125 ml @ 0 mls/hr CONT PRN IV SEE I/O RECORD Last administered on 01/09/17 06:14; Start 01/08/17 at 18:15; Stop 01/11/17 at 10:43; Status DC Diltiazem HCl (Cardizem) 10 mg 1X ONCE IVP Last administered on 01/08/17 18: 53; Start 01/08/17 at 18:15; Stop 01/08/17 at 18:16; Status DC Ondansetron HCl (Zofran) 4 mg PRN Q8HRS PRN IV NAUSEA/VOMITING; Start 01/08/17 at 19:15; Stop 01/08/17 at 19:25; Status DC Fentanyl Citrate (Fentanyl 2ml Vial) 50 mcg PRN Q2HR PRN IV PAIN Last administered on 01/09/17 04:22; Start 01/08/17 at 19:15; Stop 01/09/17 at 19:14 ; Status DC Acetaminophen (Tylenol) 650 mg PRN Q4HRS PRN PO FEVER; Start 01/08/17 at 19:15 ; Stop 01/09/17 at 19:14; Status DC Nitroglycerin (Nitrostat) 0.4 mg PRN Q5MIN PRN SL CHEST PAIN; Start 01/08/17 at 19:15; Stop 01/09/17 at 19:14; Status DC Ondansetron HCl (Zofran) 4 mg PRN Q6HRS PRN IV NAUSEA/VOMITING Last administered on 01/09/17 07:22; Start 01/08/17 at 19:30; Stop 01/09/17 at 19:29 ; Status DC Cyclobenzaprine HCl (Flexeril) 10 mg TID PO Last administered on 01/09/17 09: 23; Start 01/08/17 at 21:00; Stop 01/09/17 at 11:12; Status DC Ibuprofen (Motrin) 600 mg TID PO Last administered on 01/09/17 09:24; Start at 21:00; Stop 01/09/17 at 11:12; Status DC Lidocaine (Lidoderm) 1 patch DAILY TD Last administered on 01/18/17 08:49; Start 01/08/17 at 19:30 Ondansetron HCl (Zofran) 4 mg PRN Q6HRS PRN IV NAUSEA/VOMITING; Start 01/08/17 at 19:30; Stop 01/09/17 at 19:29; Status UNV Enoxaparin Sodium (Lovenox 40mg Syringe) 40 mg Q24H SQ Last administered on 09:24; Start 01/09/17 at 09:00; Stop 01/09/17 at 10:55; Status DC Polyethylene Glycol (miraLAX PACKET) 17 gm DAILY PO Last administered on 08:48; Start 01/09/17 at 09:30 Magnesium Hydroxide (Milk Of Magnesia) 2,400 mg PRN DAILY PRN PO CONSTIPATION Last administered on 01/15/17 08:43; Start 01/09/17 at 09:00 Heparin Sodium (Porcine) (Heparin Sq) 5,000 unit Q8HRS SQ ; Start 01/09/17 at 14 :00; Stop 01/09/17 at 14:00; Status DC Cyclobenzaprine HCl (Flexeril) 10 mg PRN Q6HRS PRN PO MUSCLE SPASMS Last administered on 01/18/17 08:47; Start 01/10/17 at 09:00 Methylprednisolone (Medrol) 8 mg BID PO Last administered on 01/09/17 21:06; Start 01/09/17 at 11:30; Stop 01/09/17 at 21:01; Status DC Methylprednisolone (Medrol) 4 mg BIDPCLD PO Last administered on 01/09/17 18: 30; Start 01/09/17 at 12:30; Stop 01/09/17 at 17:31; Status DC Methylprednisolone (Medrol) 4 mg TIDPC PO Last administered on 01/10/17 18:27 ; Start 01/10/17 at 08:30; Stop 01/10/17 at 17:31; Status DC Methylprednisolone (Medrol) 8 mg QHS PO Last administered on 01/10/17 20:46; Start 01/10/17 at 21:00; Stop 01/10/17 at 21:01; Status DC Methylprednisolone (Medrol) 4 mg QIDAFTMEAL PO Last administered on 01/11/17 22:51; Start 01/11/17 at 09:00; Stop 01/11/17 at 21:01; Status DC Methylprednisolone (Medrol) 4 mg TID PO Last administered on 01/12/17 21:28; Start 01/12/17 at 09:00; Stop 01/12/17 at 21:01; Status DC Methylprednisolone (Medrol) 4 mg BID PO Last administered on 01/13/17 21:16; Start 01/13/17 at 09:00; Stop 01/13/17 at 21:01; Status DC Methylprednisolone (Medrol) 4 mg DAILY PO Last administered on 01/14/17 08:45 ; Start 01/14/17 at 09:00; Stop 01/14/17 at 09:01; Status DC Pantoprazole Sodium (Protonix) 40 mg DAILYAC PO Last administered on 01/18/17 08:46; Start 01/09/17 at 11:30 Acetaminophen/ Hydrocodone Bitart (Lortab 10/325) 1 tab PRN Q6HRS PRN PO PAIN Last administered on 01/10/17 06:47; Start 01/09/17 at 11:15; Stop 01/10/17 at 12:09; Status DC Bisacodyl (Dulcolax Supp) 10 mg PRN DAILY PRN [place] CONSTIPATION; Start 01/09/17 at 11:30 Bisacodyl (Dulcolax Tab) 10 mg DAILY PO Last administered on 01/18/17 08:47; Start 01/09/17 at 12:00 Magnesium Citrate (Citroma) 296 ml PRN 1X PRN PO CONSTIPATION Last administered on 01/09/17 15:41; Start 01/09/17 at 11:30 Apixaban (Eliquis) 5 mg BID PO Last administered on 01/11/17 09:00; Start at 14:30; Stop 01/11/17 at 10:38; Status DC Diltiazem HCl (Cardizem 24hr Cd) 120 mg DAILY PO Last administered on 08:59; Start 01/09/17 at 14:30; Stop 01/11/17 at 10:43; Status DC Info (Anti-Coagulation Monitoring By Pharmacy) 1 each PRN DAILY PRN MC SEE COMMENTS Last administered on 01/18/17 10:15; Start 01/09/17 at 14:00 Simvastatin (Zocor) 40 mg QHS PO Last administered on 01/10/17 20:46; Start at 21:00; Stop 01/11/17 at 10:45; Status DC Losartan Potassium (Cozaar) 100 mg DAILY PO Last administered on 01/11/17 09: 00; Start 01/10/17 at 09:00; Stop 01/11/17 at 10:43; Status DC Sertraline HCl (Zoloft) 100 mg DAILY PO Last administered on 01/18/17 08:48; Start 01/10/17 at 09:00 Hydrochlorothiazide (Hydrodiuril) 25 mg DAILY PO Last administered on 08:02; Start 01/10/17 at 09:00; Stop 01/17/17 at 09:41; Status DC Sertraline HCl (Zoloft) 100 mg 1X ONCE PO Last administered on 01/09/17 21:07 ; Start 01/09/17 at 21:00; Stop 01/09/17 at 21:01; Status DC Acetaminophen/ Hydrocodone Bitart (Lortab 10/325) 1 tab PRN Q4HRS PRN PO PAIN Last administered on 01/16/17 08:33; Start 01/10/17 at 12:15; Stop 01/16/17 at 09:56; Status DC Aspirin (Ecotrin) 325 mg 1X ONCE PO Last administered on 01/11/17 11:34; Start 01/11/17 at 10:45; Stop 01/11/17 at 10:46; Status DC Diltiazem HCl (Cardizem 24hr Cd) 240 mg DAILY PO Last administered on 08:47; Start 01/12/17 at 09:00 Losartan Potassium (Cozaar) 50 mg DAILY PO Last administered on 01/18/17 08:48 ; Start 01/12/17 at 09:00 Atorvastatin Calcium (Lipitor) 20 mg QHS PO Last administered on 01/17/17 21: 34; Start 01/11/17 at 21:00 Morphine Sulfate 2 mg PRN Q4HRS PRN IV PAIN SEVERE; Start 01/11/17 at 20:15; Stop 01/17/17 at 09:01; Status DC Ondansetron HCl (Zofran) 4 mg PRN Q6HRS PRN IV NAUSEA/VOMITING; Start 01/13/17 at 07:00; Stop 01/14/17 at 06:59; Status DC Fentanyl Citrate (Fentanyl 2ml Vial) 25 mcg PRN Q5MIN PRN IV MILD PAIN; Start 01/13/17 at 07:00; Stop 01/14/17 at 06:59; Status DC Fentanyl Citrate (Fentanyl 2ml Vial) 50 mcg PRN Q5MIN PRN IV MODERATE PAIN Last administered on 01/13/17 11:48; Start 01/13/17 at 07:00; Stop 01/14/17 at 06:59; Status DC Morphine Sulfate 1 mg PRN Q10MIN PRN IV SEVERE PAIN; Start 01/13/17 at 07:00; Stop 01/14/17 at 06:59; Status DC Ringer's Solution 1,000 ml @ 30 mls/hr Q24H IV Last administered on 01/13/17 10:05; Start 01/13/17 at 07:00; Stop 01/13/17 at 18:59; Status DC Lidocaine HCl (Xylocaine-Mpf 1% Vial) 2 ml PRN 1X PRN ID IV START Last administered on 01/13/17 10:08; Start 01/13/17 at 07:00; Stop 01/14/17 at 06:59 ; Status DC Hydromorphone HCl (Dilaudid) 0.5 mg PRN Q10MIN PRN IV SEV PAIN, Second choice; Start 01/13/17 at 07:00; Stop 01/14/17 at 06:59; Status DC Prochlorperazine Edisylate (Compazine) 5 mg PACU PRN PRN IV NAUSEA, MRX1; Start 01/13/17 at 07:00; Stop 01/14/17 at 06:59; Status DC Lidocaine/Sodium Bicarbonate (Buffered Lidocaine 1%) 20 ml STK-MED ONCE IJ ; Start 01/12/17 at 10:24; Stop 01/12/17 at 10:25; Status DC Iohexol (Omnipaque 300 Mg/ml) 50 ml STK-MED ONCE .ROUTE ; Start 01/12/17 at 10: 26; Stop 01/12/17 at 10:27; Status DC Midazolam HCl (Versed) 5 mg STK-MED ONCE .ROUTE ; Start 01/12/17 at 10:44; Stop 01/12/17 at 10:45; Status DC Fentanyl Citrate (Fentanyl 5ml Vial) 250 mcg STK-MED ONCE .ROUTE ; Start at 10:44; Stop 01/12/17 at 10:45; Status DC Cefazolin Sodium/ Dextrose 50 ml @ As Directed STK-MED ONCE IV ; Start 01/12/17 at 10:45; Stop 01/12/17 at 10:46; Status DC Lidocaine/Sodium Bicarbonate (Buffered Lidocaine 1%) 20 ml 1X ONCE IJ Last administered on 01/12/17 11:40; Start 01/12/17 at 11:15; Stop 01/12/17 at 11:20 ; Status DC Midazolam HCl (Versed) 5 mg 1X ONCE IV Last administered on 01/12/17 11:41; Start 01/12/17 at 11:15; Stop 01/12/17 at 11:20; Status DC Fentanyl Citrate (Fentanyl 5ml Vial) 250 mcg 1X ONCE IV Last administered on 01/12/17 11:45; Start 01/12/17 at 11:15; Stop 01/12/17 at 11:20; Status DC Iohexol (Omnipaque 300 Mg/ml) 50 ml 1X ONCE IART Last administered on 11:45; Start 01/12/17 at 11:15; Stop 01/12/17 at 11:20; Status DC Cefazolin Sodium/ Dextrose 50 ml @ 100 mls/hr 1X ONCE IV Last administered on 01/12/17 11:04; Start 01/12/17 at 11:15; Stop 01/12/17 at 11:44; Status DC Apixaban (Eliquis) 5 mg BID PO Last administered on 01/18/17 08:47; Start 01/12/17 at 21:00 Lidocaine HCl (Xylocaine 2% Topical 30gm Tube) 1 qamar 1X ONCE TP Last administered on 01/13/17 10:24; Start 01/13/17 at 10:15; Stop 01/13/17 at 10:20 ; Status DC Benzocaine (Hurricaine One) 2 spray 1X ONCE MM Last administered on 01/13/17 10:24; Start 01/13/17 at 10:15; Stop 01/13/17 at 10:20; Status DC Lidocaine HCl (Viscous Lidocaine) 15 ml 1X ONCE SWSW Last administered on 01/13 10:25; Start 01/13/17 at 10:15; Stop 01/13/17 at 10:20; Status DC Propofol 20 ml @ As Directed STK-MED ONCE IV ; Start 01/13/17 at 11:10; Stop at 11:11; Status DC Amiodarone HCl (Cordarone) 200 mg BID PO Last administered on 01/18/17 08:47; Start 01/13/17 at 21:00 Tramadol HCl (Ultram) 50 mg 1X ONCE PO Last administered on 01/14/17 14:09; Start 01/14/17 at 13:30; Stop 01/14/17 at 13:31; Status DC Tramadol HCl (Ultram) 50 mg PRN Q6HRS PRN PO PAIN; Start 01/14/17 at 13:30 Oxycodone/ Acetaminophen (Percocet 7.5/ 325) 1 tab PRN Q4HRS PRN PO MODERATE TO SEVERE PAIN Last administered on 01/17/17 08:05; Start 01/16/17 at 10:00; Stop 01/17/17 at 09:39; Status DC Acetaminophen (Tylenol) 650 mg PRN Q6HRS PRN PO FEVER; Start 01/16/17 at 13:45 Ondansetron HCl (Zofran) 4 mg PRN Q6HRS PRN IV NAUSEA/VOMITING; Start 01/16/17 at 13:45 Morphine Sulfate 2 mg PRN Q2HR PRN IV PAIN; Start 01/16/17 at 13:45 Tramadol HCl (Ultram) 50 mg PRN Q6HRS PRN PO PAIN; Start 01/16/17 at 13:45; Stop 01/17/17 at 09:39; Status DC Hydralazine HCl (Apresoline) 10 mg PRN Q4HRS PRN IVP ELEVATED BP, SEE COMMENTS ; Start 01/16/17 at 13:45 Docusate Sodium (Colace) 100 mg PRN DAILY PRN PO CONSTIPATION; Start 01/16/17 at 13:45 Oxycodone/ Acetaminophen (Percocet 5/325) 1 tab PRN Q4HRS PRN PO PAIN Last administered on 01/18/17 08:48; Start 01/17/17 at 09:45 Potassium Chloride (Klor-Con) 40 meq 1X ONCE PO Last administered on 10:20; Start 01/17/17 at 09:45; Stop 01/17/17 at 09:46; Status DC Oxycodone HCl (OxyCONTIN) 10 mg Q12HR PO Last administered on 01/18/17 13:15; Start 01/18/17 at 11:30 Active Scripts Active Reported Colace (Docusate Sodium) 100 Mg Capsule 100 Mg PO BID PRN Hydrocodone-Apap 5-325 (Hydrocodone Bit/Acetaminophen) 1 Each Tablet 1 Tab PO PRN Q6HRS PRN Cyclobenzaprine Hcl 10 Mg Tablet 1 Tab PO TID Ibuprofen 600 Mg Tablet 600 Mg PO PRN Q6HRS PRN Simvastatin 40 Mg Tablet 1 Tab PO QHS Losartan-Hctz 100-25 Mg Tab (Losartan/Hydrochlorothiazide) 1 Each Tablet 1 Tab PO DAILY Zoloft (Sertraline Hcl) 100 Mg Tablet 1 Tab PO DAILY Vitals/I & O Vital Sign - Last 24 Hours 01/17/17 01/17/17 01/17/17 01/17/17 15:00 18:18 19:30 19:45 Temp 97.7 97.7 97.7 97.7 Pulse 94 93 Resp 19 18 19 B/P (MAP) 109/66 (80) 112/76 (88) Pulse Ox 92 92 94 O2 Delivery Nasal Cannula Nasal Cannula Nasal Cannula Nasal Cannula O2 Flow Rate 2.0 2.0 2.0 2.0 01/17/17 01/17/17 01/17/17 01/18/17 21:33 23:23 23:35 00:23 Temp 98.2 98.2 Pulse 93 89 Resp 20 18 18 B/P (MAP) 112/76 110/76 (87) Pulse Ox 94 95 95 O2 Delivery Nasal Cannula Nasal Cannula O2 Flow Rate 2.0 2.0 2.0 01/18/17 01/18/17 01/18/17 01/18/17 03:35 07:36 08:00 08:47 Temp 97.9 97.5 97.9 97.5 Pulse 81 89 89 Resp 18 19 B/P (MAP) 107/70 (82) 110/71 (84) 110/71 Pulse Ox 95 96 O2 Delivery Nasal Cannula Nasal Cannula Room Air O2 Flow Rate 2.0 2.0 01/18/17 01/18/17 01/18/17 01/18/17 08:47 08:48 08:48 10:18 Temp 97.9 97.9 Pulse 89 89 94 Resp 20 B/P (MAP) 110/71 110/71 113/72 (86) Pulse Ox 96 O2 Delivery Room Air Room Air 01/18/17 01/18/17 01/18/17 13:01 13:15 14:24 Temp 97.7 97.7 Pulse 86 Resp 21 B/P (MAP) 112/69 (83) O2 Delivery Room Air Nasal Cannula O2 Flow Rate 2.0 Intake and Output 01/18/17 01/18/17 01/19/17 15:00 23:00 07:00 Output Total 300 ml Balance -300 ml WOJCIECH LOYA MD Jan 18, 2017 14:32
[2017-01-18] MEDS ORDERED: BUPIVACAINE MPF 0.25% 10 ML VIAL. IJ ONE (15:15)
[2017-01-18] MEDS ORDERED: methylPREDNISolone ACETATE 40 MG/ML VIAL. IM ONE (15:15)
--- NOTE | 2017-01-18 15:16 | PDOC ---
PROGRESS NOTES Subjective Subjective She continues with severe low back pain interfering with mobility. Objective Objective Vital Signs Date Time Temp Pulse Resp B/P (MAP) Pulse Ox O2 Delivery O2 Flow Rate FiO2 01/18/17 14:24 97.7 86 21 112/69 (83) 97.7 01/18/17 13:15 Nasal Cannula 2.0 01/18/17 08:48 96 Intake and Output 01/19/17 06:59 Output Total 300 ml Balance -300 ml Output Urine Total 300 ml Physical Exam Physical Exam She had tenderness to palpation over lumbar paraspinal muscles and sacroiliac joints. SLR test is negative and she continues with severe pain on movement. Plan Plan of Care To proceed with injecting painful right sacroiliac joint to help ease her pain I am not sure she can have lumbar ESIs with being on anticoagulants. Comment Review of Relevant I have reviewed the following items peter (where applicable) has been applied. Labs Laboratory Tests Test 01/17/17 07:13 White Blood Count 6.7 x10^3/uL (4.0-11.0) Red Blood Count 4.72 x10^6/uL (3.50-5.40) Hemoglobin 15.8 g/dL (12.0-15.5) Hematocrit 46.9 % (36.0-47.0) Mean Corpuscular Volume 99 fL (79-100) Mean Corpuscular Hemoglobin 34 pg (25-35) Mean Corpuscular Hemoglobin Concent 34 g/dL (31-37) Red Cell Distribution Width 13.9 % (11.5-14.5) Platelet Count 179 x10^3/uL (140-400) Neutrophils (%) (Auto) 64 % (31-73) Lymphocytes (%) (Auto) 22 % (24-48) Monocytes (%) (Auto) 11 % (0-9) Eosinophils (%) (Auto) 3 % (0-3) Basophils (%) (Auto) 1 % (0-3) Neutrophils # (Auto) 4.3 x10^3uL (1.8-7.7) Lymphocytes # (Auto) 1.5 x10^3/uL (1.0-4.8) Monocytes # (Auto) 0.7 x10^3/uL (0.0-1.1) Eosinophils # (Auto) 0.2 x10^3/uL (0.0-0.7) Basophils # (Auto) 0.0 x10^3/uL (0.0-0.2) Sodium Level 138 mmol/L (136-145) Potassium Level 3.0 mmol/L (3.5-5.1) Chloride Level 95 mmol/L (98-107) Carbon Dioxide Level 38 mmol/L (21-32) Anion Gap 5 (6-14) Blood Urea Nitrogen 17 mg/dL (7-20) Creatinine 0.7 mg/dL (0.6-1.0) Estimated GFR (Cockcroft-Gault) 83.2 Glucose Level 94 mg/dL (70-99) Calcium Level 9.3 mg/dL (8.5-10.1) Medications Current Medications Hydromorphone HCl (Dilaudid) 1 mg 1X ONCE IV Last administered on 01/08/17 18 :56; Start 01/08/17 at 18:15; Stop 01/08/17 at 18:16; Status DC Ondansetron HCl (Zofran) 4 mg 1X ONCE IV Last administered on 01/08/17 18:55 ; Start 01/08/17 at 18:15; Stop 01/08/17 at 18:16; Status DC Sodium Chloride 1,000 ml @ 1,000 mls/hr 1X ONCE IV Last administered on 18:52; Start 01/08/17 at 18:15; Stop 01/08/17 at 19:14; Status DC Diltiazem HCl 125 mg/Dextrose 125 ml @ 0 mls/hr CONT PRN IV SEE I/O RECORD Last administered on 01/09/17 06:14; Start 01/08/17 at 18:15; Stop 01/11/17 at 10:43; Status DC Diltiazem HCl (Cardizem) 10 mg 1X ONCE IVP Last administered on 01/08/17 18: 53; Start 01/08/17 at 18:15; Stop 01/08/17 at 18:16; Status DC Ondansetron HCl (Zofran) 4 mg PRN Q8HRS PRN IV NAUSEA/VOMITING; Start 01/08/17 at 19:15; Stop 01/08/17 at 19:25; Status DC Fentanyl Citrate (Fentanyl 2ml Vial) 50 mcg PRN Q2HR PRN IV PAIN Last administered on 01/09/17 04:22; Start 01/08/17 at 19:15; Stop 01/09/17 at 19:14 ; Status DC Acetaminophen (Tylenol) 650 mg PRN Q4HRS PRN PO FEVER; Start 01/08/17 at 19:15 ; Stop 01/09/17 at 19:14; Status DC Nitroglycerin (Nitrostat) 0.4 mg PRN Q5MIN PRN SL CHEST PAIN; Start 01/08/17 at 19:15; Stop 01/09/17 at 19:14; Status DC Ondansetron HCl (Zofran) 4 mg PRN Q6HRS PRN IV NAUSEA/VOMITING Last administered on 01/09/17 07:22; Start 01/08/17 at 19:30; Stop 01/09/17 at 19:29 ; Status DC Cyclobenzaprine HCl (Flexeril) 10 mg TID PO Last administered on 01/09/17 09: 23; Start 01/08/17 at 21:00; Stop 01/09/17 at 11:12; Status DC Ibuprofen (Motrin) 600 mg TID PO Last administered on 01/09/17 09:24; Start at 21:00; Stop 01/09/17 at 11:12; Status DC Lidocaine (Lidoderm) 1 patch DAILY TD Last administered on 01/18/17 08:49; Start 01/08/17 at 19:30 Ondansetron HCl (Zofran) 4 mg PRN Q6HRS PRN IV NAUSEA/VOMITING; Start 01/08/17 at 19:30; Stop 01/09/17 at 19:29; Status UNV Enoxaparin Sodium (Lovenox 40mg Syringe) 40 mg Q24H SQ Last administered on 09:24; Start 01/09/17 at 09:00; Stop 01/09/17 at 10:55; Status DC Polyethylene Glycol (miraLAX PACKET) 17 gm DAILY PO Last administered on 08:48; Start 01/09/17 at 09:30 Magnesium Hydroxide (Milk Of Magnesia) 2,400 mg PRN DAILY PRN PO CONSTIPATION Last administered on 01/15/17 08:43; Start 01/09/17 at 09:00 Heparin Sodium (Porcine) (Heparin Sq) 5,000 unit Q8HRS SQ ; Start 01/09/17 at 14 :00; Stop 01/09/17 at 14:00; Status DC Cyclobenzaprine HCl (Flexeril) 10 mg PRN Q6HRS PRN PO MUSCLE SPASMS Last administered on 01/18/17 08:47; Start 01/10/17 at 09:00 Methylprednisolone (Medrol) 8 mg BID PO Last administered on 01/09/17 21:06; Start 01/09/17 at 11:30; Stop 01/09/17 at 21:01; Status DC Methylprednisolone (Medrol) 4 mg BIDPCLD PO Last administered on 01/09/17 18: 30; Start 01/09/17 at 12:30; Stop 01/09/17 at 17:31; Status DC Methylprednisolone (Medrol) 4 mg TIDPC PO Last administered on 01/10/17 18:27 ; Start 01/10/17 at 08:30; Stop 01/10/17 at 17:31; Status DC Methylprednisolone (Medrol) 8 mg QHS PO Last administered on 01/10/17 20:46; Start 01/10/17 at 21:00; Stop 01/10/17 at 21:01; Status DC Methylprednisolone (Medrol) 4 mg QIDAFTMEAL PO Last administered on 01/11/17 22:51; Start 01/11/17 at 09:00; Stop 01/11/17 at 21:01; Status DC Methylprednisolone (Medrol) 4 mg TID PO Last administered on 01/12/17 21:28; Start 01/12/17 at 09:00; Stop 01/12/17 at 21:01; Status DC Methylprednisolone (Medrol) 4 mg BID PO Last administered on 01/13/17 21:16; Start 01/13/17 at 09:00; Stop 01/13/17 at 21:01; Status DC Methylprednisolone (Medrol) 4 mg DAILY PO Last administered on 01/14/17 08:45 ; Start 01/14/17 at 09:00; Stop 01/14/17 at 09:01; Status DC Pantoprazole Sodium (Protonix) 40 mg DAILYAC PO Last administered on 01/18/17 08:46; Start 01/09/17 at 11:30 Acetaminophen/ Hydrocodone Bitart (Lortab 10/325) 1 tab PRN Q6HRS PRN PO PAIN Last administered on 01/10/17 06:47; Start 01/09/17 at 11:15; Stop 01/10/17 at 12:09; Status DC Bisacodyl (Dulcolax Supp) 10 mg PRN DAILY PRN [place] CONSTIPATION; Start 01/09/17 at 11:30 Bisacodyl (Dulcolax Tab) 10 mg DAILY PO Last administered on 01/18/17 08:47; Start 01/09/17 at 12:00 Magnesium Citrate (Citroma) 296 ml PRN 1X PRN PO CONSTIPATION Last administered on 01/09/17 15:41; Start 01/09/17 at 11:30 Apixaban (Eliquis) 5 mg BID PO Last administered on 01/11/17 09:00; Start at 14:30; Stop 01/11/17 at 10:38; Status DC Diltiazem HCl (Cardizem 24hr Cd) 120 mg DAILY PO Last administered on 08:59; Start 01/09/17 at 14:30; Stop 01/11/17 at 10:43; Status DC Info (Anti-Coagulation Monitoring By Pharmacy) 1 each PRN DAILY PRN MC SEE COMMENTS Last administered on 01/18/17 10:15; Start 01/09/17 at 14:00 Simvastatin (Zocor) 40 mg QHS PO Last administered on 01/10/17 20:46; Start at 21:00; Stop 01/11/17 at 10:45; Status DC Losartan Potassium (Cozaar) 100 mg DAILY PO Last administered on 01/11/17 09: 00; Start 01/10/17 at 09:00; Stop 01/11/17 at 10:43; Status DC Sertraline HCl (Zoloft) 100 mg DAILY PO Last administered on 01/18/17 08:48; Start 01/10/17 at 09:00 Hydrochlorothiazide (Hydrodiuril) 25 mg DAILY PO Last administered on 08:02; Start 01/10/17 at 09:00; Stop 01/17/17 at 09:41; Status DC Sertraline HCl (Zoloft) 100 mg 1X ONCE PO Last administered on 01/09/17 21:07 ; Start 01/09/17 at 21:00; Stop 01/09/17 at 21:01; Status DC Acetaminophen/ Hydrocodone Bitart (Lortab 10/325) 1 tab PRN Q4HRS PRN PO PAIN Last administered on 01/16/17 08:33; Start 01/10/17 at 12:15; Stop 01/16/17 at 09:56; Status DC Aspirin (Ecotrin) 325 mg 1X ONCE PO Last administered on 01/11/17 11:34; Start 01/11/17 at 10:45; Stop 01/11/17 at 10:46; Status DC Diltiazem HCl (Cardizem 24hr Cd) 240 mg DAILY PO Last administered on 08:47; Start 01/12/17 at 09:00 Losartan Potassium (Cozaar) 50 mg DAILY PO Last administered on 01/18/17 08:48 ; Start 01/12/17 at 09:00 Atorvastatin Calcium (Lipitor) 20 mg QHS PO Last administered on 01/17/17 21: 34; Start 01/11/17 at 21:00 Morphine Sulfate 2 mg PRN Q4HRS PRN IV PAIN SEVERE; Start 01/11/17 at 20:15; Stop 01/17/17 at 09:01; Status DC Ondansetron HCl (Zofran) 4 mg PRN Q6HRS PRN IV NAUSEA/VOMITING; Start 01/13/17 at 07:00; Stop 01/14/17 at 06:59; Status DC Fentanyl Citrate (Fentanyl 2ml Vial) 25 mcg PRN Q5MIN PRN IV MILD PAIN; Start 01/13/17 at 07:00; Stop 01/14/17 at 06:59; Status DC Fentanyl Citrate (Fentanyl 2ml Vial) 50 mcg PRN Q5MIN PRN IV MODERATE PAIN Last administered on 01/13/17 11:48; Start 01/13/17 at 07:00; Stop 01/14/17 at 06:59; Status DC Morphine Sulfate 1 mg PRN Q10MIN PRN IV SEVERE PAIN; Start 01/13/17 at 07:00; Stop 01/14/17 at 06:59; Status DC Ringer's Solution 1,000 ml @ 30 mls/hr Q24H IV Last administered on 01/13/17 10:05; Start 01/13/17 at 07:00; Stop 01/13/17 at 18:59; Status DC Lidocaine HCl (Xylocaine-Mpf 1% Vial) 2 ml PRN 1X PRN ID IV START Last administered on 01/13/17 10:08; Start 01/13/17 at 07:00; Stop 01/14/17 at 06:59 ; Status DC Hydromorphone HCl (Dilaudid) 0.5 mg PRN Q10MIN PRN IV SEV PAIN, Second choice; Start 01/13/17 at 07:00; Stop 01/14/17 at 06:59; Status DC Prochlorperazine Edisylate (Compazine) 5 mg PACU PRN PRN IV NAUSEA, MRX1; Start 01/13/17 at 07:00; Stop 01/14/17 at 06:59; Status DC Lidocaine/Sodium Bicarbonate (Buffered Lidocaine 1%) 20 ml STK-MED ONCE IJ ; Start 01/12/17 at 10:24; Stop 01/12/17 at 10:25; Status DC Iohexol (Omnipaque 300 Mg/ml) 50 ml STK-MED ONCE .ROUTE ; Start 01/12/17 at 10: 26; Stop 01/12/17 at 10:27; Status DC Midazolam HCl (Versed) 5 mg STK-MED ONCE .ROUTE ; Start 01/12/17 at 10:44; Stop 01/12/17 at 10:45; Status DC Fentanyl Citrate (Fentanyl 5ml Vial) 250 mcg STK-MED ONCE .ROUTE ; Start at 10:44; Stop 01/12/17 at 10:45; Status DC Cefazolin Sodium/ Dextrose 50 ml @ As Directed STK-MED ONCE IV ; Start 01/12/17 at 10:45; Stop 01/12/17 at 10:46; Status DC Lidocaine/Sodium Bicarbonate (Buffered Lidocaine 1%) 20 ml 1X ONCE IJ Last administered on 01/12/17 11:40; Start 01/12/17 at 11:15; Stop 01/12/17 at 11:20 ; Status DC Midazolam HCl (Versed) 5 mg 1X ONCE IV Last administered on 01/12/17 11:41; Start 01/12/17 at 11:15; Stop 01/12/17 at 11:20; Status DC Fentanyl Citrate (Fentanyl 5ml Vial) 250 mcg 1X ONCE IV Last administered on 01/12/17 11:45; Start 01/12/17 at 11:15; Stop 01/12/17 at 11:20; Status DC Iohexol (Omnipaque 300 Mg/ml) 50 ml 1X ONCE IART Last administered on 11:45; Start 01/12/17 at 11:15; Stop 01/12/17 at 11:20; Status DC Cefazolin Sodium/ Dextrose 50 ml @ 100 mls/hr 1X ONCE IV Last administered on 01/12/17 11:04; Start 01/12/17 at 11:15; Stop 01/12/17 at 11:44; Status DC Apixaban (Eliquis) 5 mg BID PO Last administered on 01/18/17 08:47; Start 01/12/17 at 21:00 Lidocaine HCl (Xylocaine 2% Topical 30gm Tube) 1 qamar 1X ONCE TP Last administered on 01/13/17 10:24; Start 01/13/17 at 10:15; Stop 01/13/17 at 10:20 ; Status DC Benzocaine (Hurricaine One) 2 spray 1X ONCE MM Last administered on 01/13/17 10:24; Start 01/13/17 at 10:15; Stop 01/13/17 at 10:20; Status DC Lidocaine HCl (Viscous Lidocaine) 15 ml 1X ONCE SWSW Last administered on 01/13 10:25; Start 01/13/17 at 10:15; Stop 01/13/17 at 10:20; Status DC Propofol 20 ml @ As Directed STK-MED ONCE IV ; Start 01/13/17 at 11:10; Stop at 11:11; Status DC Amiodarone HCl (Cordarone) 200 mg BID PO Last administered on 01/18/17 08:47; Start 01/13/17 at 21:00 Tramadol HCl (Ultram) 50 mg 1X ONCE PO Last administered on 01/14/17 14:09; Start 01/14/17 at 13:30; Stop 01/14/17 at 13:31; Status DC Tramadol HCl (Ultram) 50 mg PRN Q6HRS PRN PO PAIN; Start 01/14/17 at 13:30 Oxycodone/ Acetaminophen (Percocet 7.5/ 325) 1 tab PRN Q4HRS PRN PO MODERATE TO SEVERE PAIN Last administered on 01/17/17 08:05; Start 01/16/17 at 10:00; Stop 01/17/17 at 09:39; Status DC Acetaminophen (Tylenol) 650 mg PRN Q6HRS PRN PO FEVER; Start 01/16/17 at 13:45 Ondansetron HCl (Zofran) 4 mg PRN Q6HRS PRN IV NAUSEA/VOMITING; Start 01/16/17 at 13:45 Morphine Sulfate 2 mg PRN Q2HR PRN IV PAIN; Start 01/16/17 at 13:45 Tramadol HCl (Ultram) 50 mg PRN Q6HRS PRN PO PAIN; Start 01/16/17 at 13:45; Stop 01/17/17 at 09:39; Status DC Hydralazine HCl (Apresoline) 10 mg PRN Q4HRS PRN IVP ELEVATED BP, SEE COMMENTS ; Start 01/16/17 at 13:45 Docusate Sodium (Colace) 100 mg PRN DAILY PRN PO CONSTIPATION; Start 01/16/17 at 13:45 Oxycodone/ Acetaminophen (Percocet 5/325) 1 tab PRN Q4HRS PRN PO PAIN Last administered on 01/18/17 08:48; Start 01/17/17 at 09:45 Potassium Chloride (Klor-Con) 40 meq 1X ONCE PO Last administered on 10:20; Start 01/17/17 at 09:45; Stop 01/17/17 at 09:46; Status DC Oxycodone HCl (OxyCONTIN) 10 mg Q12HR PO Last administered on 01/18/17 13:15; Start 01/18/17 at 11:30 Active Scripts Active Reported Colace (Docusate Sodium) 100 Mg Capsule 100 Mg PO BID PRN Hydrocodone-Apap 5-325 (Hydrocodone Bit/Acetaminophen) 1 Each Tablet 1 Tab PO PRN Q6HRS PRN Cyclobenzaprine Hcl 10 Mg Tablet 1 Tab PO TID Ibuprofen 600 Mg Tablet 600 Mg PO PRN Q6HRS PRN Simvastatin 40 Mg Tablet 1 Tab PO QHS Losartan-Hctz 100-25 Mg Tab (Losartan/Hydrochlorothiazide) 1 Each Tablet 1 Tab PO DAILY Zoloft (Sertraline Hcl) 100 Mg Tablet 1 Tab PO DAILY Vitals/I & O Vital Sign - Last 24 Hours 01/17/17 01/17/17 01/17/17 01/17/17 18:18 19:30 19:45 21:33 Temp 97.7 97.7 Pulse 93 93 Resp 18 19 B/P (MAP) 112/76 (88) 112/76 Pulse Ox 92 94 O2 Delivery Nasal Cannula Nasal Cannula Nasal Cannula O2 Flow Rate 2.0 2.0 2.0 01/17/17 01/17/17 01/18/17 01/18/17 23:23 23:35 00:23 03:35 Temp 98.2 97.9 98.2 97.9 Pulse 89 81 Resp 20 18 18 18 B/P (MAP) 110/76 (87) 107/70 (82) Pulse Ox 94 95 95 95 O2 Delivery Nasal Cannula Nasal Cannula Nasal Cannula O2 Flow Rate 2.0 2.0 2.0 2.0 01/18/17 01/18/17 01/18/17 01/18/17 07:36 08:00 08:47 08:47 Temp 97.5 97.5 Pulse 89 89 89 Resp 19 B/P (MAP) 110/71 (84) 110/71 110/71 Pulse Ox 96 O2 Delivery Nasal Cannula Room Air O2 Flow Rate 2.0 01/18/17 01/18/17 01/18/17 01/18/17 08:48 08:48 10:18 13:01 Temp 97.9 97.9 Pulse 89 94 Resp 20 B/P (MAP) 110/71 113/72 (86) Pulse Ox 96 O2 Delivery Room Air Room Air Room Air 01/18/17 01/18/17 13:15 14:24 Temp 97.7 97.7 Pulse 86 Resp 21 B/P (MAP) 112/69 (83) O2 Delivery Nasal Cannula O2 Flow Rate 2.0 Intake and Output 01/18/17 01/18/17 01/19/17 14:59 22:59 06:59 Output Total 300 ml Balance -300 ml DAPHNIE,SIVAKOTI R MD Jan 18, 2017 15:16
--- NOTE | 2017-01-18 18:54 | PDOC4 ---
PROCEDURE Procedure At her request,I have injected painful right sacroiliac joint area under aseptic skin technique with marcaine and depomedrol solution and she tolerated the procedure satisfactorily without any side effects. LOYDA ELLER MD Jan 18, 2017 18:54
[2017-01-18 19:59] VITALS: BP 140/64
[2017-01-18] MEDS: ATORVASTATIN CALCIUM 20 MG TABLET PO SCH (20:24)
[2017-01-18 22:51] VITALS: BP 103/70
[2017-01-19 03:55] VITALS: BP 110/69
[2017-01-19] MEDS: PANTOPRAZOLE 40 MG TABLET.DR. PO SCH (06:21)
[2017-01-19] MEDS: oxyCODONE/APAP 5/325 1 TAB TABLET PO PRN ×4 (06:26→22:51)
[2017-01-19 07:19] VITALS: BP 143/83
[2017-01-19] MEDS: LIDOCAINE (700MG/PATCH) PATCH. TD SCH (09:00)
--- NOTE | 2017-01-19 09:02 | PDOC ---
PROGRESS NOTES Subjective Subjective She admits some easing of pain after sacroiliac joint injection yesterday. Objective Objective Vital Signs Date Time Temp Pulse Resp B/P (MAP) Pulse Ox O2 Delivery O2 Flow Rate FiO2 01/19/17 07:19 97.8 82 20 143/83 (103) 96 Nasal Cannula 2.0 97.8 Physical Exam Physical Exam She is supine in bed and seems comfortable and getting up and walking to bathroom with roller walker. Plan Plan of Assisted with home health or SNF transfer when medically stable.To arrange for roller walker for home if she goes home. Comment Review of Relevant I have reviewed the following items peter (where applicable) has been applied. Medications Current Medications Hydromorphone HCl (Dilaudid) 1 mg 1X ONCE IV Last administered on 01/08/17 18 :56; Start 01/08/17 at 18:15; Stop 01/08/17 at 18:16; Status DC Ondansetron HCl (Zofran) 4 mg 1X ONCE IV Last administered on 01/08/17 18:55 ; Start 01/08/17 at 18:15; Stop 01/08/17 at 18:16; Status DC Sodium Chloride 1,000 ml @ 1,000 mls/hr 1X ONCE IV Last administered on 18:52; Start 01/08/17 at 18:15; Stop 01/08/17 at 19:14; Status DC Diltiazem HCl 125 mg/Dextrose 125 ml @ 0 mls/hr CONT PRN IV SEE I/O RECORD Last administered on 01/09/17 06:14; Start 01/08/17 at 18:15; Stop 01/11/17 at 10:43; Status DC Diltiazem HCl (Cardizem) 10 mg 1X ONCE IVP Last administered on 01/08/17 18: 53; Start 01/08/17 at 18:15; Stop 01/08/17 at 18:16; Status DC Ondansetron HCl (Zofran) 4 mg PRN Q8HRS PRN IV NAUSEA/VOMITING; Start 01/08/17 at 19:15; Stop 01/08/17 at 19:25; Status DC Fentanyl Citrate (Fentanyl 2ml Vial) 50 mcg PRN Q2HR PRN IV PAIN Last administered on 01/09/17 04:22; Start 01/08/17 at 19:15; Stop 01/09/17 at 19:14 ; Status DC Acetaminophen (Tylenol) 650 mg PRN Q4HRS PRN PO FEVER; Start 01/08/17 at 19:15 ; Stop 01/09/17 at 19:14; Status DC Nitroglycerin (Nitrostat) 0.4 mg PRN Q5MIN PRN SL CHEST PAIN; Start 01/08/17 at 19:15; Stop 01/09/17 at 19:14; Status DC Ondansetron HCl (Zofran) 4 mg PRN Q6HRS PRN IV NAUSEA/VOMITING Last administered on 01/09/17 07:22; Start 01/08/17 at 19:30; Stop 01/09/17 at 19:29 ; Status DC Cyclobenzaprine HCl (Flexeril) 10 mg TID PO Last administered on 01/09/17 09: 23; Start 01/08/17 at 21:00; Stop 01/09/17 at 11:12; Status DC Ibuprofen (Motrin) 600 mg TID PO Last administered on 01/09/17 09:24; Start at 21:00; Stop 01/09/17 at 11:12; Status DC Lidocaine (Lidoderm) 1 patch DAILY TD Last administered on 01/18/17 08:49; Start 01/08/17 at 19:30 Ondansetron HCl (Zofran) 4 mg PRN Q6HRS PRN IV NAUSEA/VOMITING; Start 01/08/17 at 19:30; Stop 01/09/17 at 19:29; Status UNV Enoxaparin Sodium (Lovenox 40mg Syringe) 40 mg Q24H SQ Last administered on 09:24; Start 01/09/17 at 09:00; Stop 01/09/17 at 10:55; Status DC Polyethylene Glycol (miraLAX PACKET) 17 gm DAILY PO Last administered on 08:48; Start 01/09/17 at 09:30 Magnesium Hydroxide (Milk Of Magnesia) 2,400 mg PRN DAILY PRN PO CONSTIPATION Last administered on 01/15/17 08:43; Start 01/09/17 at 09:00 Heparin Sodium (Porcine) (Heparin Sq) 5,000 unit Q8HRS SQ ; Start 01/09/17 at 14 :00; Stop 01/09/17 at 14:00; Status DC Cyclobenzaprine HCl (Flexeril) 10 mg PRN Q6HRS PRN PO MUSCLE SPASMS Last administered on 01/18/17 15:52; Start 01/10/17 at 09:00 Methylprednisolone (Medrol) 8 mg BID PO Last administered on 01/09/17 21:06; Start 01/09/17 at 11:30; Stop 01/09/17 at 21:01; Status DC Methylprednisolone (Medrol) 4 mg BIDPCLD PO Last administered on 01/09/17 18: 30; Start 01/09/17 at 12:30; Stop 01/09/17 at 17:31; Status DC Methylprednisolone (Medrol) 4 mg TIDPC PO Last administered on 01/10/17 18:27 ; Start 01/10/17 at 08:30; Stop 01/10/17 at 17:31; Status DC Methylprednisolone (Medrol) 8 mg QHS PO Last administered on 01/10/17 20:46; Start 01/10/17 at 21:00; Stop 01/10/17 at 21:01; Status DC Methylprednisolone (Medrol) 4 mg QIDAFTMEAL PO Last administered on 01/11/17 22:51; Start 01/11/17 at 09:00; Stop 01/11/17 at 21:01; Status DC Methylprednisolone (Medrol) 4 mg TID PO Last administered on 01/12/17 21:28; Start 01/12/17 at 09:00; Stop 01/12/17 at 21:01; Status DC Methylprednisolone (Medrol) 4 mg BID PO Last administered on 01/13/17 21:16; Start 01/13/17 at 09:00; Stop 01/13/17 at 21:01; Status DC Methylprednisolone (Medrol) 4 mg DAILY PO Last administered on 01/14/17 08:45 ; Start 01/14/17 at 09:00; Stop 01/14/17 at 09:01; Status DC Pantoprazole Sodium (Protonix) 40 mg DAILYAC PO Last administered on 06:21; Start 01/09/17 at 11:30 Acetaminophen/ Hydrocodone Bitart (Lortab 10/325) 1 tab PRN Q6HRS PRN PO PAIN Last administered on 01/10/17 06:47; Start 01/09/17 at 11:15; Stop 01/10/17 at 12:09; Status DC Bisacodyl (Dulcolax Supp) 10 mg PRN DAILY PRN RI CONSTIPATION; Start 01/09/17 at 11:30 Bisacodyl (Dulcolax Tab) 10 mg DAILY PO Last administered on 01/18/17 08:47; Start 01/09/17 at 12:00 Magnesium Citrate (Citroma) 296 ml PRN 1X PRN PO CONSTIPATION Last administered on 01/09/17 15:41; Start 01/09/17 at 11:30 Apixaban (Eliquis) 5 mg BID PO Last administered on 01/11/17 09:00; Start at 14:30; Stop 01/11/17 at 10:38; Status DC Diltiazem HCl (Cardizem 24hr Cd) 120 mg DAILY PO Last administered on 08:59; Start 01/09/17 at 14:30; Stop 01/11/17 at 10:43; Status DC Info (Anti-Coagulation Monitoring By Pharmacy) 1 each PRN DAILY PRN MC SEE COMMENTS Last administered on 01/18/17 10:15; Start 01/09/17 at 14:00 Simvastatin (Zocor) 40 mg QHS PO Last administered on 01/10/17 20:46; Start at 21:00; Stop 01/11/17 at 10:45; Status DC Losartan Potassium (Cozaar) 100 mg DAILY PO Last administered on 01/11/17 09: 00; Start 01/10/17 at 09:00; Stop 01/11/17 at 10:43; Status DC Sertraline HCl (Zoloft) 100 mg DAILY PO Last administered on 01/18/17 08:48; Start 01/10/17 at 09:00 Hydrochlorothiazide (Hydrodiuril) 25 mg DAILY PO Last administered on 08:02; Start 01/10/17 at 09:00; Stop 01/17/17 at 09:41; Status DC Sertraline HCl (Zoloft) 100 mg 1X ONCE PO Last administered on 01/09/17 21:07 ; Start 01/09/17 at 21:00; Stop 01/09/17 at 21:01; Status DC Acetaminophen/ Hydrocodone Bitart (Lortab 10/325) 1 tab PRN Q4HRS PRN PO PAIN Last administered on 01/16/17 08:33; Start 01/10/17 at 12:15; Stop 01/16/17 at 09:56; Status DC Aspirin (Ecotrin) 325 mg 1X ONCE PO Last administered on 01/11/17 11:34; Start 01/11/17 at 10:45; Stop 01/11/17 at 10:46; Status DC Diltiazem HCl (Cardizem 24hr Cd) 240 mg DAILY PO Last administered on 08:47; Start 01/12/17 at 09:00 Losartan Potassium (Cozaar) 50 mg DAILY PO Last administered on 01/18/17 08:48 ; Start 01/12/17 at 09:00 Atorvastatin Calcium (Lipitor) 20 mg QHS PO Last administered on 01/18/17 20: 24; Start 01/11/17 at 21:00 Morphine Sulfate 2 mg PRN Q4HRS PRN IV PAIN SEVERE; Start 01/11/17 at 20:15; Stop 01/17/17 at 09:01; Status DC Ondansetron HCl (Zofran) 4 mg PRN Q6HRS PRN IV NAUSEA/VOMITING; Start 01/13/17 at 07:00; Stop 01/14/17 at 06:59; Status DC Fentanyl Citrate (Fentanyl 2ml Vial) 25 mcg PRN Q5MIN PRN IV MILD PAIN; Start 01/13/17 at 07:00; Stop 01/14/17 at 06:59; Status DC Fentanyl Citrate (Fentanyl 2ml Vial) 50 mcg PRN Q5MIN PRN IV MODERATE PAIN Last administered on 01/13/17 11:48; Start 01/13/17 at 07:00; Stop 01/14/17 at 06:59; Status DC Morphine Sulfate 1 mg PRN Q10MIN PRN IV SEVERE PAIN; Start 01/13/17 at 07:00; Stop 01/14/17 at 06:59; Status DC Ringer's Solution 1,000 ml @ 30 mls/hr Q24H IV Last administered on 01/13/17 10:05; Start 01/13/17 at 07:00; Stop 01/13/17 at 18:59; Status DC Lidocaine HCl (Xylocaine-Mpf 1% Vial) 2 ml PRN 1X PRN ID IV START Last administered on 01/13/17 10:08; Start 01/13/17 at 07:00; Stop 01/14/17 at 06:59 ; Status DC Hydromorphone HCl (Dilaudid) 0.5 mg PRN Q10MIN PRN IV SEV PAIN, Second choice; Start 01/13/17 at 07:00; Stop 01/14/17 at 06:59; Status DC Prochlorperazine Edisylate (Compazine) 5 mg PACU PRN PRN IV NAUSEA, MRX1; Start 01/13/17 at 07:00; Stop 01/14/17 at 06:59; Status DC Lidocaine/Sodium Bicarbonate (Buffered Lidocaine 1%) 20 ml STK-MED ONCE IJ ; Start 01/12/17 at 10:24; Stop 01/12/17 at 10:25; Status DC Iohexol (Omnipaque 300 Mg/ml) 50 ml STK-MED ONCE .ROUTE ; Start 01/12/17 at 10: 26; Stop 01/12/17 at 10:27; Status DC Midazolam HCl (Versed) 5 mg STK-MED ONCE .ROUTE ; Start 01/12/17 at 10:44; Stop 01/12/17 at 10:45; Status DC Fentanyl Citrate (Fentanyl 5ml Vial) 250 mcg STK-MED ONCE .ROUTE ; Start at 10:44; Stop 01/12/17 at 10:45; Status DC Cefazolin Sodium/ Dextrose 50 ml @ As Directed STK-MED ONCE IV ; Start 01/12/17 at 10:45; Stop 01/12/17 at 10:46; Status DC Lidocaine/Sodium Bicarbonate (Buffered Lidocaine 1%) 20 ml 1X ONCE IJ Last administered on 01/12/17 11:40; Start 01/12/17 at 11:15; Stop 01/12/17 at 11:20 ; Status DC Midazolam HCl (Versed) 5 mg 1X ONCE IV Last administered on 01/12/17 11:41; Start 01/12/17 at 11:15; Stop 01/12/17 at 11:20; Status DC Fentanyl Citrate (Fentanyl 5ml Vial) 250 mcg 1X ONCE IV Last administered on 01/12/17 11:45; Start 01/12/17 at 11:15; Stop 01/12/17 at 11:20; Status DC Iohexol (Omnipaque 300 Mg/ml) 50 ml 1X ONCE IART Last administered on 11:45; Start 01/12/17 at 11:15; Stop 01/12/17 at 11:20; Status DC Cefazolin Sodium/ Dextrose 50 ml @ 100 mls/hr 1X ONCE IV Last administered on 01/12/17 11:04; Start 01/12/17 at 11:15; Stop 01/12/17 at 11:44; Status DC Apixaban (Eliquis) 5 mg BID PO Last administered on 01/18/17 20:25; Start 01/12/17 at 21:00 Lidocaine HCl (Xylocaine 2% Topical 30gm Tube) 1 qamar 1X ONCE TP Last administered on 01/13/17 10:24; Start 01/13/17 at 10:15; Stop 01/13/17 at 10:20 ; Status DC Benzocaine (Hurricaine One) 2 spray 1X ONCE MM Last administered on 01/13/17 10:24; Start 01/13/17 at 10:15; Stop 01/13/17 at 10:20; Status DC Lidocaine HCl (Viscous Lidocaine) 15 ml 1X ONCE SWSW Last administered on 01/13 10:25; Start 01/13/17 at 10:15; Stop 01/13/17 at 10:20; Status DC Propofol 20 ml @ As Directed STK-MED ONCE IV ; Start 01/13/17 at 11:10; Stop at 11:11; Status DC Amiodarone HCl (Cordarone) 200 mg BID PO Last administered on 01/18/17 20:25; Start 01/13/17 at 21:00 Tramadol HCl (Ultram) 50 mg 1X ONCE PO Last administered on 01/14/17 14:09; Start 01/14/17 at 13:30; Stop 01/14/17 at 13:31; Status DC Tramadol HCl (Ultram) 50 mg PRN Q6HRS PRN PO PAIN; Start 01/14/17 at 13:30 Oxycodone/ Acetaminophen (Percocet 7.5/ 325) 1 tab PRN Q4HRS PRN PO MODERATE TO SEVERE PAIN Last administered on 01/17/17 08:05; Start 01/16/17 at 10:00; Stop 01/17/17 at 09:39; Status DC Acetaminophen (Tylenol) 650 mg PRN Q6HRS PRN PO FEVER; Start 01/16/17 at 13:45 Ondansetron HCl (Zofran) 4 mg PRN Q6HRS PRN IV NAUSEA/VOMITING; Start 01/16/17 at 13:45 Morphine Sulfate 2 mg PRN Q2HR PRN IV PAIN; Start 01/16/17 at 13:45 Tramadol HCl (Ultram) 50 mg PRN Q6HRS PRN PO PAIN; Start 01/16/17 at 13:45; Stop 01/17/17 at 09:39; Status DC Hydralazine HCl (Apresoline) 10 mg PRN Q4HRS PRN IVP ELEVATED BP, SEE COMMENTS ; Start 01/16/17 at 13:45 Docusate Sodium (Colace) 100 mg PRN DAILY PRN PO CONSTIPATION; Start 01/16/17 at 13:45 Oxycodone/ Acetaminophen (Percocet 5/325) 1 tab PRN Q4HRS PRN PO PAIN Last administered on 01/19/17 06:26; Start 01/17/17 at 09:45 Potassium Chloride (Klor-Con) 40 meq 1X ONCE PO Last administered on 10:20; Start 01/17/17 at 09:45; Stop 01/17/17 at 09:46; Status DC Oxycodone HCl (OxyCONTIN) 10 mg Q12HR PO Last administered on 01/18/17 20:25; Start 01/18/17 at 11:30 Methylprednisolone Acetate (DEPO-Medrol 40MG VIAL) 40 mg 1X ONCE IM Last administered on 01/18/17 15:15; Start 01/18/17 at 15:15; Stop 01/18/17 at 15:16 ; Status DC Bupivacaine HCl (Sensorcaine-Mpf 0.25%) 10 ml 1X ONCE IJ Last administered on 10/9/17at 15:15; Start 01/18/17 at 15:15; Stop 01/18/17 at 15:16; Status DC Active Scripts Active Reported Colace (Docusate Sodium) 100 Mg Capsule 100 Mg PO BID PRN Hydrocodone-Apap 5-325 (Hydrocodone Bit/Acetaminophen) 1 Each Tablet 1 Tab PO PRN Q6HRS PRN Cyclobenzaprine Hcl 10 Mg Tablet 1 Tab PO TID Ibuprofen 600 Mg Tablet 600 Mg PO PRN Q6HRS PRN Simvastatin 40 Mg Tablet 1 Tab PO QHS Losartan-Hctz 100-25 Mg Tab (Losartan/Hydrochlorothiazide) 1 Each Tablet 1 Tab PO DAILY Zoloft (Sertraline Hcl) 100 Mg Tablet 1 Tab PO DAILY Vitals/I & O Vital Sign - Last 24 Hours 01/18/17 01/18/17 01/18/17 01/18/17 10:18 13:15 14:24 15:52 Temp 97.9 97.7 97.9 97.7 Pulse 94 86 Resp 20 21 B/P (MAP) 113/72 (86) 112/69 (83) O2 Delivery Room Air Nasal Cannula Nasal Cannula O2 Flow Rate 2.0 2.0 01/18/17 01/18/17 01/18/17 01/18/17 17:33 19:59 20:00 20:25 Temp 97.8 97.8 Pulse 90 90 Resp 22 B/P (MAP) 140/64 (89) 140/64 Pulse Ox 91 O2 Delivery Room Air Room Air Room Air 01/18/17 01/18/17 01/19/17 01/19/17 20:25 22:51 00:25 03:55 Temp 97.7 97.8 97.7 97.8 Pulse 80 77 Resp 20 22 20 22 B/P (MAP) 103/70 (81) 110/69 (83) Pulse Ox 97 97 96 97 O2 Delivery Nasal Cannula Nasal Cannula Nasal Cannula Nasal Cannula O2 Flow Rate 2.0 2.0 2.0 2.0 01/19/17 01/19/17 06:26 07:19 Temp 97.8 97.8 Pulse 82 Resp 20 20 B/P (MAP) 143/83 (103) Pulse Ox 97 96 O2 Delivery Nasal Cannula Nasal Cannula O2 Flow Rate 2.0 2.0 LOYDA ELLER MD Jan 19, 2017 09:02
[2017-01-19] MEDS: AMIODARONE HCL 200 MG TABLET. PO SCH ×2 (09:05→20:35)
[2017-01-19] MEDS: SERTRALINE 50 MG TABLET. PO SCH (09:05)
[2017-01-19] MEDS: APIXABAN 5 MG TABLET. PO SCH ×2 (09:05→20:35)
[2017-01-19] MEDS: LOSARTAN POTASSIUM 50 MG TABLET. PO SCH (09:05)
[2017-01-19] MEDS: BISACODYL 5 MG TABLET.DR. PO SCH (09:06)
[2017-01-19] MEDS: POLYETHYLENE GLYCOL 3350 17 GM PACKET. PO SCH (09:06)
[2017-01-19] MEDS: CYCLOBENZAPRINE 10 MG TABLET. PO PRN ×3 (09:07→22:52)
[2017-01-19] MEDS: oxyCODONE ER 10 MG TAB.ER.12H PO SCH ×2 (09:07→20:35)
[2017-01-19 10:09] VITALS: BP 122/81
[2017-01-19] MEDS ORDERED: DILT240C77 PO (11:15)
[2017-01-19] MEDS ORDERED: AMIO200T2 PO (11:15)
[2017-01-19] MEDS ORDERED: APIX5TAB PO (11:15)
[2017-01-19] MEDS ORDERED: OXYC1TAB7 PO (11:15)
[2017-01-19] MEDS ORDERED: LOSA50TA2 PO (11:15)
[2017-01-19] MEDS ORDERED: OXYC10TA45 PO (11:15)
[2017-01-19] MEDS ORDERED: ATOR20TA58 PO (11:15)
[2017-01-19 14:22] VITALS: BP 149/78
--- NOTE | 2017-01-19 14:33 | PDOC ---
PROGRESS NOTES Chief Complaint Chief Complaint 1. New atrial fib/flutter RVR s/p MCKAYLA no thrombus s/p cardioversion but failed, planned for repeat OP cardioversion 4 weeks if not conversion 2. Obesity BMI 36 3. Recent fall with back injury 4. Acute back pain no resolve with PO pain meds 5. HTN, dyslipidemia - chronic stable 6. Ex smoker - quit 30 yrs ago 7. Disc Bulge 2, L2, compression fx L1, recent - s/p kyphoplasty 01/12/17 for L1 compressive fx hypokalemia plan: fu with card, no further intervention for now add percocet for pain, decrease to 5/325, asked pt to take it before PT,BUT not help, add oxycontin 10mg bid no neurosx needs to be done on eliquis PTOT replete K steroid shot with dr. Davis 01/18 talked to family, nurse, SW, PT HAS TO SEE PT ,and should recommend her to go to SNF instead of . History of Present Illness History of Present Illness ROS: no fever, chills, sob or chest pain back eventually better post steroid injection 01/18, however, PT has not seen her x2 days. pt needs to go to SNF! said cannot get up herself well and cannot wipe her bottom on toilet constipation ok with stool softner Vitals Vitals Vital Signs Date Time Temp Pulse Resp B/P (MAP) Pulse Ox O2 Delivery O2 Flow Rate FiO2 01/19/17 14:22 97.9 95 20 149/78 (101) Room Air 97.9 01/19/17 12:15 97 2.0 Physical Exam General: Alert, Oriented X3, Cooperative, No acute distress Heart: Regular rate, Normal S1, Normal S2 Lungs: Clear Abdomen: Normal bowel sounds, Soft, No tenderness, No hepatosplenomegaly, No masses Extremities: No clubbing, No cyanosis, No edema, Normal pulses, No tenderness/ swelling Skin: No rashes, No breakdown, No significant lesion Comment Review of Relevant I have reviewed the following items peter (where applicable) has been applied. Medications Current Medications Hydromorphone HCl (Dilaudid) 1 mg 1X ONCE IV Last administered on 01/08/17t 18 :56; Start 01/08/17 at 18:15; Stop 01/08/17 at 18:16; Status DC Ondansetron HCl (Zofran) 4 mg 1X ONCE IV Last administered on 01/08/17 18:55 ; Start 01/08/17 at 18:15; Stop 01/08/17 at 18:16; Status DC Sodium Chloride 1,000 ml @ 1,000 mls/hr 1X ONCE IV Last administered on 18:52; Start 01/08/17 at 18:15; Stop 01/08/17 at 19:14; Status DC Diltiazem HCl 125 mg/Dextrose 125 ml @ 0 mls/hr CONT PRN IV SEE I/O RECORD Last administered on 01/09/17 06:14; Start 01/08/17 at 18:15; Stop 01/11/17 at 10:43; Status DC Diltiazem HCl (Cardizem) 10 mg 1X ONCE IVP Last administered on 01/08/17 18: 53; Start 01/08/17 at 18:15; Stop 01/08/17 at 18:16; Status DC Ondansetron HCl (Zofran) 4 mg PRN Q8HRS PRN IV NAUSEA/VOMITING; Start 01/08/17 at 19:15; Stop 01/08/17 at 19:25; Status DC Fentanyl Citrate (Fentanyl 2ml Vial) 50 mcg PRN Q2HR PRN IV PAIN Last administered on 01/09/17 04:22; Start 01/08/17 at 19:15; Stop 01/09/17 at 19:14 ; Status DC Acetaminophen (Tylenol) 650 mg PRN Q4HRS PRN PO FEVER; Start 01/08/17 at 19:15 ; Stop 01/09/17 at 19:14; Status DC Nitroglycerin (Nitrostat) 0.4 mg PRN Q5MIN PRN SL CHEST PAIN; Start 01/08/17 at 19:15; Stop 01/09/17 at 19:14; Status DC Ondansetron HCl (Zofran) 4 mg PRN Q6HRS PRN IV NAUSEA/VOMITING Last administered on 01/09/17 07:22; Start 01/08/17 at 19:30; Stop 01/09/17 at 19:29 ; Status DC Cyclobenzaprine HCl (Flexeril) 10 mg TID PO Last administered on 01/09/17 09: 23; Start 01/08/17 at 21:00; Stop 01/09/17 at 11:12; Status DC Ibuprofen (Motrin) 600 mg TID PO Last administered on 01/09/17 09:24; Start at 21:00; Stop 01/09/17 at 11:12; Status DC Lidocaine (Lidoderm) 1 patch DAILY TD Last administered on 01/18/17 08:49; Start 01/08/17 at 19:30 Ondansetron HCl (Zofran) 4 mg PRN Q6HRS PRN IV NAUSEA/VOMITING; Start 01/08/17 at 19:30; Stop 01/09/17 at 19:29; Status UNV Enoxaparin Sodium (Lovenox 40mg Syringe) 40 mg Q24H SQ Last administered on 09:24; Start 01/09/17 at 09:00; Stop 01/09/17 at 10:55; Status DC Polyethylene Glycol (miraLAX PACKET) 17 gm DAILY PO Last administered on 09:06; Start 01/09/17 at 09:30 Magnesium Hydroxide (Milk Of Magnesia) 2,400 mg PRN DAILY PRN PO CONSTIPATION Last administered on 01/15/17 08:43; Start 01/09/17 at 09:00 Heparin Sodium (Porcine) (Heparin Sq) 5,000 unit Q8HRS SQ ; Start 01/09/17 at 14 :00; Stop 01/09/17 at 14:00; Status DC Cyclobenzaprine HCl (Flexeril) 10 mg PRN Q6HRS PRN PO MUSCLE SPASMS Last administered on 01/19/17 09:07; Start 01/10/17 at 09:00 Methylprednisolone (Medrol) 8 mg BID PO Last administered on 01/09/17 21:06; Start 01/09/17 at 11:30; Stop 01/09/17 at 21:01; Status DC Methylprednisolone (Medrol) 4 mg BIDPCLD PO Last administered on 01/09/17 18: 30; Start 01/09/17 at 12:30; Stop 01/09/17 at 17:31; Status DC Methylprednisolone (Medrol) 4 mg TIDPC PO Last administered on 01/10/17 18:27 ; Start 01/10/17 at 08:30; Stop 01/10/17 at 17:31; Status DC Methylprednisolone (Medrol) 8 mg QHS PO Last administered on 01/10/17 20:46; Start 01/10/17 at 21:00; Stop 01/10/17 at 21:01; Status DC Methylprednisolone (Medrol) 4 mg QIDAFTMEAL PO Last administered on 01/11/17 22:51; Start 01/11/17 at 09:00; Stop 01/11/17 at 21:01; Status DC Methylprednisolone (Medrol) 4 mg TID PO Last administered on 01/12/17 21:28; Start 01/12/17 at 09:00; Stop 01/12/17 at 21:01; Status DC Methylprednisolone (Medrol) 4 mg BID PO Last administered on 01/13/17 21:16; Start 01/13/17 at 09:00; Stop 01/13/17 at 21:01; Status DC Methylprednisolone (Medrol) 4 mg DAILY PO Last administered on 01/14/17 08:45 ; Start 01/14/17 at 09:00; Stop 01/14/17 at 09:01; Status DC Pantoprazole Sodium (Protonix) 40 mg DAILYAC PO Last administered on 06:21; Start 01/09/17 at 11:30 Acetaminophen/ Hydrocodone Bitart (Lortab 10/325) 1 tab PRN Q6HRS PRN PO PAIN Last administered on 01/10/17 06:47; Start 01/09/17 at 11:15; Stop 01/10/17 at 12:09; Status DC Bisacodyl (Dulcolax Supp) 10 mg PRN DAILY PRN [place] CONSTIPATION; Start 01/09/17 at 11:30 Bisacodyl (Dulcolax Tab) 10 mg DAILY PO Last administered on 01/19/17 09:06; Start 01/09/17 at 12:00 Magnesium Citrate (Citroma) 296 ml PRN 1X PRN PO CONSTIPATION Last administered on 01/09/17 15:41; Start 01/09/17 at 11:30 Apixaban (Eliquis) 5 mg BID PO Last administered on 01/11/17 09:00; Start at 14:30; Stop 01/11/17 at 10:38; Status DC Diltiazem HCl (Cardizem 24hr Cd) 120 mg DAILY PO Last administered on 08:59; Start 01/09/17 at 14:30; Stop 01/11/17 at 10:43; Status DC Info (Anti-Coagulation Monitoring By Pharmacy) 1 each PRN DAILY PRN MC SEE COMMENTS Last administered on 01/18/17 10:15; Start 01/09/17 at 14:00 Simvastatin (Zocor) 40 mg QHS PO Last administered on 01/10/17 20:46; Start at 21:00; Stop 01/11/17 at 10:45; Status DC Losartan Potassium (Cozaar) 100 mg DAILY PO Last administered on 01/11/17 09: 00; Start 01/10/17 at 09:00; Stop 01/11/17 at 10:43; Status DC Sertraline HCl (Zoloft) 100 mg DAILY PO Last administered on 01/19/17 09:05; Start 01/10/17 at 09:00 Hydrochlorothiazide (Hydrodiuril) 25 mg DAILY PO Last administered on 08:02; Start 01/10/17 at 09:00; Stop 01/17/17 at 09:41; Status DC Sertraline HCl (Zoloft) 100 mg 1X ONCE PO Last administered on 01/09/17 21:07 ; Start 01/09/17 at 21:00; Stop 01/09/17 at 21:01; Status DC Acetaminophen/ Hydrocodone Bitart (Lortab 10/325) 1 tab PRN Q4HRS PRN PO PAIN Last administered on 01/16/17 08:33; Start 01/10/17 at 12:15; Stop 01/16/17 at 09:56; Status DC Aspirin (Ecotrin) 325 mg 1X ONCE PO Last administered on 01/11/17 11:34; Start 01/11/17 at 10:45; Stop 01/11/17 at 10:46; Status DC Diltiazem HCl (Cardizem 24hr Cd) 240 mg DAILY PO Last administered on 09:04; Start 01/12/17 at 09:00 Losartan Potassium (Cozaar) 50 mg DAILY PO Last administered on 01/19/17 09: 05; Start 01/12/17 at 09:00 Atorvastatin Calcium (Lipitor) 20 mg QHS PO Last administered on 01/18/17 20: 24; Start 01/11/17 at 21:00 Morphine Sulfate 2 mg PRN Q4HRS PRN IV PAIN SEVERE; Start 01/11/17 at 20:15; Stop 01/17/17 at 09:01; Status DC Ondansetron HCl (Zofran) 4 mg PRN Q6HRS PRN IV NAUSEA/VOMITING; Start 01/13/17 at 07:00; Stop 01/14/17 at 06:59; Status DC Fentanyl Citrate (Fentanyl 2ml Vial) 25 mcg PRN Q5MIN PRN IV MILD PAIN; Start 01/13/17 at 07:00; Stop 01/14/17 at 06:59; Status DC Fentanyl Citrate (Fentanyl 2ml Vial) 50 mcg PRN Q5MIN PRN IV MODERATE PAIN Last administered on 01/13/17 11:48; Start 01/13/17 at 07:00; Stop 01/14/17 at 06:59; Status DC Morphine Sulfate 1 mg PRN Q10MIN PRN IV SEVERE PAIN; Start 01/13/17 at 07:00; Stop 01/14/17 at 06:59; Status DC Ringer's Solution 1,000 ml @ 30 mls/hr Q24H IV Last administered on 01/13/17 10:05; Start 01/13/17 at 07:00; Stop 01/13/17 at 18:59; Status DC Lidocaine HCl (Xylocaine-Mpf 1% Vial) 2 ml PRN 1X PRN ID IV START Last administered on 01/13/17 10:08; Start 01/13/17 at 07:00; Stop 01/14/17 at 06:59 ; Status DC Hydromorphone HCl (Dilaudid) 0.5 mg PRN Q10MIN PRN IV SEV PAIN, Second choice; Start 01/13/17 at 07:00; Stop 01/14/17 at 06:59; Status DC Prochlorperazine Edisylate (Compazine) 5 mg PACU PRN PRN IV NAUSEA, MRX1; Start 01/13/17 at 07:00; Stop 01/14/17 at 06:59; Status DC Lidocaine/Sodium Bicarbonate (Buffered Lidocaine 1%) 20 ml STK-MED ONCE IJ ; Start 01/12/17 at 10:24; Stop 01/12/17 at 10:25; Status DC Iohexol (Omnipaque 300 Mg/ml) 50 ml STK-MED ONCE .ROUTE ; Start 01/12/17 at 10: 26; Stop 01/12/17 at 10:27; Status DC Midazolam HCl (Versed) 5 mg STK-MED ONCE .ROUTE ; Start 01/12/17 at 10:44; Stop 01/12/17 at 10:45; Status DC Fentanyl Citrate (Fentanyl 5ml Vial) 250 mcg STK-MED ONCE .ROUTE ; Start at 10:44; Stop 01/12/17 at 10:45; Status DC Cefazolin Sodium/ Dextrose 50 ml @ As Directed STK-MED ONCE IV ; Start 01/12/17 at 10:45; Stop 01/12/17 at 10:46; Status DC Lidocaine/Sodium Bicarbonate (Buffered Lidocaine 1%) 20 ml 1X ONCE IJ Last administered on 01/12/17 11:40; Start 01/12/17 at 11:15; Stop 01/12/17 at 11:20 ; Status DC Midazolam HCl (Versed) 5 mg 1X ONCE IV Last administered on 01/12/17 11:41; Start 01/12/17 at 11:15; Stop 01/12/17 at 11:20; Status DC Fentanyl Citrate (Fentanyl 5ml Vial) 250 mcg 1X ONCE IV Last administered on 01/12/17 11:45; Start 01/12/17 at 11:15; Stop 01/12/17 at 11:20; Status DC Iohexol (Omnipaque 300 Mg/ml) 50 ml 1X ONCE IART Last administered on 11:45; Start 01/12/17 at 11:15; Stop 01/12/17 at 11:20; Status DC Cefazolin Sodium/ Dextrose 50 ml @ 100 mls/hr 1X ONCE IV Last administered on 01/12/17 11:04; Start 01/12/17 at 11:15; Stop 01/12/17 at 11:44; Status DC Apixaban (Eliquis) 5 mg BID PO Last administered on 01/19/17 09:05; Start at 21:00 Lidocaine HCl (Xylocaine 2% Topical 30gm Tube) 1 qamar 1X ONCE TP Last administered on 01/13/17 10:24; Start 01/13/17 at 10:15; Stop 01/13/17 at 10:20 ; Status DC Benzocaine (Hurricaine One) 2 spray 1X ONCE MM Last administered on 01/13/17 10:24; Start 01/13/17 at 10:15; Stop 01/13/17 at 10:20; Status DC Lidocaine HCl (Viscous Lidocaine) 15 ml 1X ONCE SWSW Last administered on 01/13 10:25; Start 01/13/17 at 10:15; Stop 01/13/17 at 10:20; Status DC Propofol 20 ml @ As Directed STK-MED ONCE IV ; Start 01/13/17 at 11:10; Stop at 11:11; Status DC Amiodarone HCl (Cordarone) 200 mg BID PO Last administered on 01/19/17 09:05 ; Start 01/13/17 at 21:00 Tramadol HCl (Ultram) 50 mg 1X ONCE PO Last administered on 01/14/17 14:09; Start 01/14/17 at 13:30; Stop 01/14/17 at 13:31; Status DC Tramadol HCl (Ultram) 50 mg PRN Q6HRS PRN PO PAIN; Start 01/14/17 at 13:30 Oxycodone/ Acetaminophen (Percocet 7.5/ 325) 1 tab PRN Q4HRS PRN PO MODERATE TO SEVERE PAIN Last administered on 01/17/17 08:05; Start 01/16/17 at 10:00; Stop 01/17/17 at 09:39; Status DC Acetaminophen (Tylenol) 650 mg PRN Q6HRS PRN PO FEVER; Start 01/16/17 at 13:45 Ondansetron HCl (Zofran) 4 mg PRN Q6HRS PRN IV NAUSEA/VOMITING; Start 01/16/17 at 13:45 Morphine Sulfate 2 mg PRN Q2HR PRN IV PAIN; Start 01/16/17 at 13:45 Tramadol HCl (Ultram) 50 mg PRN Q6HRS PRN PO PAIN; Start 01/16/17 at 13:45; Stop 01/17/17 at 09:39; Status DC Hydralazine HCl (Apresoline) 10 mg PRN Q4HRS PRN IVP ELEVATED BP, SEE COMMENTS ; Start 01/16/17 at 13:45 Docusate Sodium (Colace) 100 mg PRN DAILY PRN PO CONSTIPATION; Start 01/16/17 at 13:45 Oxycodone/ Acetaminophen (Percocet 5/325) 1 tab PRN Q4HRS PRN PO PAIN Last administered on 01/19/17 11:15; Start 01/17/17 at 09:45 Potassium Chloride (Klor-Con) 40 meq 1X ONCE PO Last administered on 10:20; Start 01/17/17 at 09:45; Stop 01/17/17 at 09:46; Status DC Oxycodone HCl (OxyCONTIN) 10 mg Q12HR PO Last administered on 01/19/17 09:07 ; Start 01/18/17 at 11:30 Methylprednisolone Acetate (DEPO-Medrol 40MG VIAL) 40 mg 1X ONCE IM Last administered on 01/18/17 15:15; Start 01/18/17 at 15:15; Stop 01/18/17 at 15:16 ; Status DC Bupivacaine HCl (Sensorcaine-Mpf 0.25%) 10 ml 1X ONCE IJ Last administered on 01/18/17 15:15; Start 01/18/17 at 15:15; Stop 01/18/17 at 15:16; Status DC Active Scripts Active Oxycontin (Oxycodone HCl) 10 Mg Tab.er.12h 10 Mg PO Q12HR Oxycodone-Acetaminophen 5-325 (Oxycodone Hcl/Acetaminophen) 1 Each Tablet 1 Tab PO PRN Q4HRS PRN Cozaar (Losartan Potassium) 50 Mg Tablet 50 Mg PO DAILY 30 Days Diltiazem 24Hr Cd (Diltiazem HCl) 240 Mg Cap.er.24h 240 Mg PO DAILY 30 Days Atorvastatin Calcium 20 Mg Tablet 20 Mg PO QHS 30 Days Eliquis (Apixaban) 5 Mg Tablet 5 Mg PO BID 30 Days Amiodarone Hcl 200 Mg Tablet 200 Mg PO BID 30 Days Reported Colace (Docusate Sodium) 100 Mg Capsule 100 Mg PO BID PRN Cyclobenzaprine Hcl 10 Mg Tablet 1 Tab PO TID Simvastatin 40 Mg Tablet 1 Tab PO QHS Zoloft (Sertraline Hcl) 100 Mg Tablet 1 Tab PO DAILY Vitals/I & O Vital Sign - Last 24 Hours 01/18/17 01/18/17 01/18/17 01/18/17 15:52 19:59 20:00 20:25 Temp 97.8 97.8 Pulse 90 90 Resp 22 B/P (MAP) 140/64 (89) 140/64 Pulse Ox 91 O2 Delivery Nasal Cannula Room Air Room Air O2 Flow Rate 2.0 01/18/17 01/18/17 01/19/17 01/19/17 20:25 22:51 00:25 03:55 Temp 97.7 97.8 97.7 97.8 Pulse 80 77 Resp 20 22 20 22 B/P (MAP) 103/70 (81) 110/69 (83) Pulse Ox 97 97 96 97 O2 Delivery Nasal Cannula Nasal Cannula Nasal Cannula O2 Flow Rate 2.0 2.0 2.0 2.0 01/19/17 01/19/17 01/19/17 01/19/17 06:26 07:19 08:10 09:04 Temp 97.8 97.8 Pulse 82 82 Resp 20 20 B/P (MAP) 143/83 (103) 143/83 Pulse Ox 97 96 O2 Delivery Nasal Cannula Nasal Cannula Nasal Cannula O2 Flow Rate 2.0 2.0 2.0 01/19/17 01/19/17 01/19/17 01/19/17 09:05 09:05 09:07 10:09 Temp 97.5 97.5 Pulse 82 82 85 Resp 18 19 B/P (MAP) 143/83 143/83 122/81 (95) Pulse Ox 97 O2 Delivery Nasal Cannula Nasal Cannula O2 Flow Rate 2.0 2.0 01/19/17 01/19/17 01/19/17 01/19/17 11:15 12:15 13:01 14:22 Temp 97.9 97.9 Pulse 95 Resp 20 B/P (MAP) 149/78 (101) Pulse Ox 97 97 O2 Delivery Room Air Nasal Cannula Room Air Room Air O2 Flow Rate 2.0 2.0 Intake and Output 01/19/17 01/19/17 01/20/17 15:00 23:00 07:00 Intake Total 480 ml Balance 480 ml [email or web address] LOYA MD Jan 19, 2017 14:33
[2017-01-19 19:40] VITALS: BP 137/68
[2017-01-19] MEDS: ATORVASTATIN CALCIUM 20 MG TABLET PO SCH (20:34)
[2017-01-19 23:35] VITALS: BP 131/65
[2017-01-20 03:35] VITALS: BP 118/76
[2017-01-20] MEDS: CYCLOBENZAPRINE 10 MG TABLET. PO PRN ×2 (06:30→13:17)
[2017-01-20] MEDS: oxyCODONE/APAP 5/325 1 TAB TABLET PO PRN ×2 (06:30→13:18)
[2017-01-20] MEDS: PANTOPRAZOLE 40 MG TABLET.DR. PO SCH (06:30)
[2017-01-20 07:45] VITALS: BP 148/84
--- NOTE | 2017-01-20 08:41 | PDOC ---
PROGRESS NOTES Subjective Subjective She feels 95% better with her low back pain. Objective Objective Vital Signs Date Time Temp Pulse Resp B/P (MAP) Pulse Ox O2 Delivery O2 Flow Rate FiO2 01/20/17 06:30 20 93 Nasal Cannula 2.0 01/20/17 03:35 98.0 86 118/76 (90) 98.0 Physical Exam Physical Exam She is alert and does not seem to be in any distress and walking in her room with roller walker. Plan Plan of Care Agree with plans for transfer to SNF for a short stay. Comment Review of Relevant I have reviewed the following items peter (where applicable) has been applied. Medications Current Medications Hydromorphone HCl (Dilaudid) 1 mg 1X ONCE IV Last administered on 01/08/17 18 :56; Start 01/08/17 at 18:15; Stop 01/08/17 at 18:16; Status DC Ondansetron HCl (Zofran) 4 mg 1X ONCE IV Last administered on 01/08/17 18:55 ; Start 01/08/17 at 18:15; Stop 01/08/17 at 18:16; Status DC Sodium Chloride 1,000 ml @ 1,000 mls/hr 1X ONCE IV Last administered on 18:52; Start 01/08/17 at 18:15; Stop 01/08/17 at 19:14; Status DC Diltiazem HCl 125 mg/Dextrose 125 ml @ 0 mls/hr CONT PRN IV SEE I/O RECORD Last administered on 01/09/17 06:14; Start 01/08/17 at 18:15; Stop 01/11/17 at 10:43; Status DC Diltiazem HCl (Cardizem) 10 mg 1X ONCE IVP Last administered on 01/08/17 18: 53; Start 01/08/17 at 18:15; Stop 01/08/17 at 18:16; Status DC Ondansetron HCl (Zofran) 4 mg PRN Q8HRS PRN IV NAUSEA/VOMITING; Start 01/08/17 at 19:15; Stop 01/08/17 at 19:25; Status DC Fentanyl Citrate (Fentanyl 2ml Vial) 50 mcg PRN Q2HR PRN IV PAIN Last administered on 01/09/17 04:22; Start 01/08/17 at 19:15; Stop 01/09/17 at 19:14 ; Status DC Acetaminophen (Tylenol) 650 mg PRN Q4HRS PRN PO FEVER; Start 01/08/17 at 19:15 ; Stop 01/09/17 at 19:14; Status DC Nitroglycerin (Nitrostat) 0.4 mg PRN Q5MIN PRN SL CHEST PAIN; Start 01/08/17 at 19:15; Stop 01/09/17 at 19:14; Status DC Ondansetron HCl (Zofran) 4 mg PRN Q6HRS PRN IV NAUSEA/VOMITING Last administered on 01/09/17 07:22; Start 01/08/17 at 19:30; Stop 01/09/17 at 19:29 ; Status DC Cyclobenzaprine HCl (Flexeril) 10 mg TID PO Last administered on 01/09/17 09: 23; Start 01/08/17 at 21:00; Stop 01/09/17 at 11:12; Status DC Ibuprofen (Motrin) 600 mg TID PO Last administered on 01/09/17 09:24; Start at 21:00; Stop 01/09/17 at 11:12; Status DC Lidocaine (Lidoderm) 1 patch DAILY TD Last administered on 01/18/17 08:49; Start 01/08/17 at 19:30 Ondansetron HCl (Zofran) 4 mg PRN Q6HRS PRN IV NAUSEA/VOMITING; Start 01/08/17 at 19:30; Stop 01/09/17 at 19:29; Status UNV Enoxaparin Sodium (Lovenox 40mg Syringe) 40 mg Q24H SQ Last administered on 09:24; Start 01/09/17 at 09:00; Stop 01/09/17 at 10:55; Status DC Polyethylene Glycol (miraLAX PACKET) 17 gm DAILY PO Last administered on 09:06; Start 01/09/17 at 09:30 Magnesium Hydroxide (Milk Of Magnesia) 2,400 mg PRN DAILY PRN PO CONSTIPATION Last administered on 01/15/17 08:43; Start 01/09/17 at 09:00 Heparin Sodium (Porcine) (Heparin Sq) 5,000 unit Q8HRS SQ ; Start 01/09/17 at 14 :00; Stop 01/09/17 at 14:00; Status DC Cyclobenzaprine HCl (Flexeril) 10 mg PRN Q6HRS PRN PO MUSCLE SPASMS Last administered on 01/20/17 06:30; Start 01/10/17 at 09:00 Methylprednisolone (Medrol) 8 mg BID PO Last administered on 01/09/17 21:06; Start 01/09/17 at 11:30; Stop 01/09/17 at 21:01; Status DC Methylprednisolone (Medrol) 4 mg BIDPCLD PO Last administered on 01/09/17 18: 30; Start 01/09/17 at 12:30; Stop 01/09/17 at 17:31; Status DC Methylprednisolone (Medrol) 4 mg TIDPC PO Last administered on 01/10/17 18:27 ; Start 01/10/17 at 08:30; Stop 01/10/17 at 17:31; Status DC Methylprednisolone (Medrol) 8 mg QHS PO Last administered on 01/10/17 20:46; Start 01/10/17 at 21:00; Stop 01/10/17 at 21:01; Status DC Methylprednisolone (Medrol) 4 mg QIDAFTMEAL PO Last administered on 01/11/17 22:51; Start 01/11/17 at 09:00; Stop 01/11/17 at 21:01; Status DC Methylprednisolone (Medrol) 4 mg TID PO Last administered on 01/12/17 21:28; Start 01/12/17 at 09:00; Stop 01/12/17 at 21:01; Status DC Methylprednisolone (Medrol) 4 mg BID PO Last administered on 01/13/17 21:16; Start 01/13/17 at 09:00; Stop 01/13/17 at 21:01; Status DC Methylprednisolone (Medrol) 4 mg DAILY PO Last administered on 01/14/17 08:45 ; Start 01/14/17 at 09:00; Stop 01/14/17 at 09:01; Status DC Pantoprazole Sodium (Protonix) 40 mg DAILYAC PO Last administered on 06:30; Start 01/09/17 at 11:30 Acetaminophen/ Hydrocodone Bitart (Lortab 10/325) 1 tab PRN Q6HRS PRN PO PAIN Last administered on 01/10/17 06:47; Start 01/09/17 at 11:15; Stop 01/10/17 at 12:09; Status DC Bisacodyl (Dulcolax Supp) 10 mg PRN DAILY PRN NC CONSTIPATION; Start 01/09/17 at 11:30 Bisacodyl (Dulcolax Tab) 10 mg DAILY PO Last administered on 01/19/17 09:06; Start 01/09/17 at 12:00 Magnesium Citrate (Citroma) 296 ml PRN 1X PRN PO CONSTIPATION Last administered on 01/09/17 15:41; Start 01/09/17 at 11:30 Apixaban (Eliquis) 5 mg BID PO Last administered on 01/11/17 09:00; Start at 14:30; Stop 01/11/17 at 10:38; Status DC Diltiazem HCl (Cardizem 24hr Cd) 120 mg DAILY PO Last administered on 08:59; Start 01/09/17 at 14:30; Stop 01/11/17 at 10:43; Status DC Info (Anti-Coagulation Monitoring By Pharmacy) 1 each PRN DAILY PRN MC SEE COMMENTS Last administered on 01/18/17 10:15; Start 01/09/17 at 14:00 Simvastatin (Zocor) 40 mg QHS PO Last administered on 01/10/17 20:46; Start at 21:00; Stop 01/11/17 at 10:45; Status DC Losartan Potassium (Cozaar) 100 mg DAILY PO Last administered on 01/11/17 09: 00; Start 01/10/17 at 09:00; Stop 01/11/17 at 10:43; Status DC Sertraline HCl (Zoloft) 100 mg DAILY PO Last administered on 01/19/17 09:05; Start 01/10/17 at 09:00 Hydrochlorothiazide (Hydrodiuril) 25 mg DAILY PO Last administered on 08:02; Start 01/10/17 at 09:00; Stop 01/17/17 at 09:41; Status DC Sertraline HCl (Zoloft) 100 mg 1X ONCE PO Last administered on 01/09/17 21:07 ; Start 01/09/17 at 21:00; Stop 01/09/17 at 21:01; Status DC Acetaminophen/ Hydrocodone Bitart (Lortab 10/325) 1 tab PRN Q4HRS PRN PO PAIN Last administered on 01/16/17 08:33; Start 01/10/17 at 12:15; Stop 01/16/17 at 09:56; Status DC Aspirin (Ecotrin) 325 mg 1X ONCE PO Last administered on 01/11/17 11:34; Start 01/11/17 at 10:45; Stop 01/11/17 at 10:46; Status DC Diltiazem HCl (Cardizem 24hr Cd) 240 mg DAILY PO Last administered on 09:04; Start 01/12/17 at 09:00 Losartan Potassium (Cozaar) 50 mg DAILY PO Last administered on 01/19/17 09: 05; Start 01/12/17 at 09:00 Atorvastatin Calcium (Lipitor) 20 mg QHS PO Last administered on 01/19/17 20: 34; Start 01/11/17 at 21:00 Morphine Sulfate 2 mg PRN Q4HRS PRN IV PAIN SEVERE; Start 01/11/17 at 20:15; Stop 01/17/17 at 09:01; Status DC Ondansetron HCl (Zofran) 4 mg PRN Q6HRS PRN IV NAUSEA/VOMITING; Start 01/13/17 at 07:00; Stop 01/14/17 at 06:59; Status DC Fentanyl Citrate (Fentanyl 2ml Vial) 25 mcg PRN Q5MIN PRN IV MILD PAIN; Start 01/13/17 at 07:00; Stop 01/14/17 at 06:59; Status DC Fentanyl Citrate (Fentanyl 2ml Vial) 50 mcg PRN Q5MIN PRN IV MODERATE PAIN Last administered on 01/13/17 11:48; Start 01/13/17 at 07:00; Stop 01/14/17 at 06:59; Status DC Morphine Sulfate 1 mg PRN Q10MIN PRN IV SEVERE PAIN; Start 01/13/17 at 07:00; Stop 01/14/17 at 06:59; Status DC Ringer's Solution 1,000 ml @ 30 mls/hr Q24H IV Last administered on 01/13/17 10:05; Start 01/13/17 at 07:00; Stop 01/13/17 at 18:59; Status DC Lidocaine HCl (Xylocaine-Mpf 1% Vial) 2 ml PRN 1X PRN ID IV START Last administered on 01/13/17 10:08; Start 01/13/17 at 07:00; Stop 01/14/17 at 06:59 ; Status DC Hydromorphone HCl (Dilaudid) 0.5 mg PRN Q10MIN PRN IV SEV PAIN, Second choice; Start 01/13/17 at 07:00; Stop 01/14/17 at 06:59; Status DC Prochlorperazine Edisylate (Compazine) 5 mg PACU PRN PRN IV NAUSEA, MRX1; Start 01/13/17 at 07:00; Stop 01/14/17 at 06:59; Status DC Lidocaine/Sodium Bicarbonate (Buffered Lidocaine 1%) 20 ml STK-MED ONCE IJ ; Start 01/12/17 at 10:24; Stop 01/12/17 at 10:25; Status DC Iohexol (Omnipaque 300 Mg/ml) 50 ml STK-MED ONCE .ROUTE ; Start 01/12/17 at 10: 26; Stop 01/12/17 at 10:27; Status DC Midazolam HCl (Versed) 5 mg STK-MED ONCE .ROUTE ; Start 01/12/17 at 10:44; Stop 01/12/17 at 10:45; Status DC Fentanyl Citrate (Fentanyl 5ml Vial) 250 mcg STK-MED ONCE .ROUTE ; Start at 10:44; Stop 01/12/17 at 10:45; Status DC Cefazolin Sodium/ Dextrose 50 ml @ As Directed STK-MED ONCE IV ; Start 01/12/17 at 10:45; Stop 01/12/17 at 10:46; Status DC Lidocaine/Sodium Bicarbonate (Buffered Lidocaine 1%) 20 ml 1X ONCE IJ Last administered on 01/12/17 11:40; Start 01/12/17 at 11:15; Stop 01/12/17 at 11:20 ; Status DC Midazolam HCl (Versed) 5 mg 1X ONCE IV Last administered on 01/12/17 11:41; Start 01/12/17 at 11:15; Stop 01/12/17 at 11:20; Status DC Fentanyl Citrate (Fentanyl 5ml Vial) 250 mcg 1X ONCE IV Last administered on 01/12/17 11:45; Start 01/12/17 at 11:15; Stop 01/12/17 at 11:20; Status DC Iohexol (Omnipaque 300 Mg/ml) 50 ml 1X ONCE IART Last administered on 11:45; Start 01/12/17 at 11:15; Stop 01/12/17 at 11:20; Status DC Cefazolin Sodium/ Dextrose 50 ml @ 100 mls/hr 1X ONCE IV Last administered on 01/12/17 11:04; Start 01/12/17 at 11:15; Stop 01/12/17 at 11:44; Status DC Apixaban (Eliquis) 5 mg BID PO Last administered on 01/19/17 20:35; Start at 21:00 Lidocaine HCl (Xylocaine 2% Topical 30gm Tube) 1 qamar 1X ONCE TP Last administered on 01/13/17 10:24; Start 01/13/17 at 10:15; Stop 01/13/17 at 10:20 ; Status DC Benzocaine (Hurricaine One) 2 spray 1X ONCE MM Last administered on 01/13/17 10:24; Start 01/13/17 at 10:15; Stop 01/13/17 at 10:20; Status DC Lidocaine HCl (Viscous Lidocaine) 15 ml 1X ONCE SWSW Last administered on 01/13 10:25; Start 01/13/17 at 10:15; Stop 01/13/17 at 10:20; Status DC Propofol 20 ml @ As Directed STK-MED ONCE IV ; Start 01/13/17 at 11:10; Stop at 11:11; Status DC Amiodarone HCl (Cordarone) 200 mg BID PO Last administered on 01/19/17 20:35 ; Start 01/13/17 at 21:00 Tramadol HCl (Ultram) 50 mg 1X ONCE PO Last administered on 01/14/17 14:09; Start 01/14/17 at 13:30; Stop 01/14/17 at 13:31; Status DC Tramadol HCl (Ultram) 50 mg PRN Q6HRS PRN PO PAIN; Start 01/14/17 at 13:30 Oxycodone/ Acetaminophen (Percocet 7.5/ 325) 1 tab PRN Q4HRS PRN PO MODERATE TO SEVERE PAIN Last administered on 01/17/17 08:05; Start 01/16/17 at 10:00; Stop 01/17/17 at 09:39; Status DC Acetaminophen (Tylenol) 650 mg PRN Q6HRS PRN PO FEVER; Start 01/16/17 at 13:45 Ondansetron HCl (Zofran) 4 mg PRN Q6HRS PRN IV NAUSEA/VOMITING; Start 01/16/17 at 13:45 Morphine Sulfate 2 mg PRN Q2HR PRN IV PAIN; Start 01/16/17 at 13:45 Tramadol HCl (Ultram) 50 mg PRN Q6HRS PRN PO PAIN; Start 01/16/17 at 13:45; Stop 01/17/17 at 09:39; Status DC Hydralazine HCl (Apresoline) 10 mg PRN Q4HRS PRN IVP ELEVATED BP, SEE COMMENTS ; Start 01/16/17 at 13:45 Docusate Sodium (Colace) 100 mg PRN DAILY PRN PO CONSTIPATION; Start 01/16/17 at 13:45 Oxycodone/ Acetaminophen (Percocet 5/325) 1 tab PRN Q4HRS PRN PO PAIN Last administered on 01/20/17 06:30; Start 01/17/17 at 09:45 Potassium Chloride (Klor-Con) 40 meq 1X ONCE PO Last administered on 10:20; Start 01/17/17 at 09:45; Stop 01/17/17 at 09:46; Status DC Oxycodone HCl (OxyCONTIN) 10 mg Q12HR PO Last administered on 01/19/17 20:35 ; Start 01/18/17 at 11:30 Methylprednisolone Acetate (DEPO-Medrol 40MG VIAL) 40 mg 1X ONCE IM Last administered on 01/18/17 15:15; Start 01/18/17 at 15:15; Stop 01/18/17 at 15:16 ; Status DC Bupivacaine HCl (Sensorcaine-Mpf 0.25%) 10 ml 1X ONCE IJ Last administered on 01/18/17 15:15; Start 01/18/17 at 15:15; Stop 01/18/17 at 15:16; Status DC Active Scripts Active Oxycontin (Oxycodone HCl) 10 Mg Tab.er.12h 10 Mg PO Q12HR Oxycodone-Acetaminophen 5-325 (Oxycodone Hcl/Acetaminophen) 1 Each Tablet 1 Tab PO PRN Q4HRS PRN Cozaar (Losartan Potassium) 50 Mg Tablet 50 Mg PO DAILY 30 Days Diltiazem 24Hr Cd (Diltiazem HCl) 240 Mg Cap.er.24h 240 Mg PO DAILY 30 Days Atorvastatin Calcium 20 Mg Tablet 20 Mg PO QHS 30 Days Eliquis (Apixaban) 5 Mg Tablet 5 Mg PO BID 30 Days Amiodarone Hcl 200 Mg Tablet 200 Mg PO BID 30 Days Reported Colace (Docusate Sodium) 100 Mg Capsule 100 Mg PO BID PRN Cyclobenzaprine Hcl 10 Mg Tablet 1 Tab PO TID Simvastatin 40 Mg Tablet 1 Tab PO QHS Zoloft (Sertraline Hcl) 100 Mg Tablet 1 Tab PO DAILY Vitals/I & O Vital Sign - Last 24 Hours 01/19/17 01/19/17 01/19/17 01/19/17 09:04 09:05 09:05 09:07 Pulse 82 82 82 Resp 18 B/P (MAP) 143/83 143/83 143/83 O2 Delivery Nasal Cannula O2 Flow Rate 2.0 01/19/17 01/19/17 01/19/17 01/19/17 10:09 11:15 14:22 16:20 Temp 97.5 97.9 97.5 97.9 Pulse 85 95 Resp 19 20 18 B/P (MAP) 122/81 (95) 149/78 (101) Pulse Ox 97 97 97 O2 Delivery Nasal Cannula Room Air Room Air Nasal Cannula O2 Flow Rate 2.0 2.0 2.0 01/19/17 01/19/17 01/19/17 01/19/17 19:40 20:00 20:35 20:35 Temp 98.0 98.0 Pulse 92 95 Resp 20 20 B/P (MAP) 137/68 (91) 149/78 Pulse Ox 92 97 O2 Delivery Nasal Cannula Nasal Cannula Nasal Cannula O2 Flow Rate 2.0 2.0 2.0 01/19/17 01/19/17 01/19/17 01/20/17 22:51 23:35 23:51 00:35 Temp 98.2 98.2 Pulse 86 Resp 20 18 20 20 B/P (MAP) 131/65 (87) Pulse Ox 97 93 97 97 O2 Delivery Nasal Cannula Room Air Nasal Cannula Nasal Cannula O2 Flow Rate 2.0 2.0 2.0 01/20/17 01/20/17 03:35 06:30 Temp 98.0 98.0 Pulse 86 Resp 18 20 B/P (MAP) 118/76 (90) Pulse Ox 93 93 O2 Delivery Room Air Nasal Cannula O2 Flow Rate 2.0 LOYDA ELLER MD Jan 20, 2017 08:41
[2017-01-20] MEDS: LIDOCAINE (700MG/PATCH) PATCH. TD SCH (09:00)
[2017-01-20] MEDS: POLYETHYLENE GLYCOL 3350 17 GM PACKET. PO SCH (09:05)
[2017-01-20] MEDS: LOSARTAN POTASSIUM 50 MG TABLET. PO SCH (09:05)
[2017-01-20] MEDS: oxyCODONE ER 10 MG TAB.ER.12H PO SCH (09:06)
[2017-01-20] MEDS: AMIODARONE HCL 200 MG TABLET. PO SCH (09:06)
[2017-01-20] MEDS: BISACODYL 5 MG TABLET.DR. PO SCH (09:07)
[2017-01-20] MEDS: SERTRALINE 50 MG TABLET. PO SCH (09:07)
[2017-01-20] MEDS: APIXABAN 5 MG TABLET. PO SCH (09:07)
[2017-01-20 11:51] VITALS: BP 124/72
--- NOTE | 2017-01-20 14:06 | PDOC3 ---
Discharge Summary [facility] Date of Admission: Jan 08, 2017 Discharge Date: Jan 20, 2017 Admitting Diagnosis 1. New atrial fib/flutter RVR s/p MCKAYLA no thrombus s/p cardioversion but failed , planned for repeat OP cardioversion 4 weeks if not conversion 2. Obesity BMI 36 3. Recent fall with back injury 4. Acute back pain no resolve with PO pain meds 5. HTN, dyslipidemia - chronic stable 6. Ex smoker - quit 30 yrs ago 7. Disc Bulge 2, L2, compression fx L1, recent - s/p kyphoplasty 01/12/17 for L1 compressive fx hypokalemia Problems: CONSULTS dr. Davis card Procedures MCKAYLA cardioversion Brief Hospital Course Ms. Goldstein is a 66 old F, came to ER from home for palpitation, was found new onset Afib/a flutter with RVR, s/p cardioversion but failed, planned for repeat OP cardioversion 4 weeks if not conversion. She also had recent fall with back pain, MRI showed Disc Bulge 2, L2, compression fx L1, recent - s/p kyphoplasty 01/12/17 for L1 compressive fx. pt stayed in the hosp for a long time since the back pain has been severe, not improved post kypho. Pt then got steroid injection by dr. Davis, and pain is better. dc to SNF with oxycontin bid, oxycodone prn. dc time 35min General: Alert, Oriented X3, Cooperative, No acute distress Heart: Regular rate, Normal S1, Normal S2 Lungs: Clear Abdomen: Normal bowel sounds, Soft, No tenderness, No hepatosplenomegaly, No masses Extremities: No clubbing, No cyanosis, No edema, Normal pulses, No tenderness/ swelling Skin: No rashes, No breakdown, No significant lesion Patient History: Patient reports no known family medical history. Problems: Disposition SNF CONDITION AT DISCHARGE: Improved Diet CARDiac Scheduled Amiodarone Hcl (Amiodarone Hcl), 200 MG PO BID Apixaban (Eliquis), 5 MG PO BID Atorvastatin Calcium (Atorvastatin Calcium), 20 MG PO QHS Cyclobenzaprine Hcl (Cyclobenzaprine Hcl), 1 TAB PO TID, (Reported) Diltiazem HCl (Diltiazem 24Hr Cd), 240 MG PO DAILY Losartan Potassium (Cozaar), 50 MG PO DAILY Oxycodone Hcl (Oxycontin), 10 MG PO Q12HR Sertraline Hcl (Zoloft), 1 TAB PO DAILY, (Reported) Simvastatin (Simvastatin), 1 TAB PO QHS, (Reported) Scheduled PRN Docusate Sodium (Colace), 100 MG PO BID PRN for CONSTIPATION, (Reported) Oxycodone Hcl/Acetaminophen (Oxycodone-Acetaminophen 5-325), 1 TAB PO PRN Q4HRS PRN for PAIN Discontinued Medications Hydrocodone Bit/Acetaminophen (Hydrocodone-Apap 5-325 ), 1 TAB PO PRN Q6HRS PRN for PAIN, (Reported) Ibuprofen (Ibuprofen), 600 MG PO PRN Q6HRS PRN for INFLAMMATION, (Reported) Losartan/Hydrochlorothiazide (Losartan-Hctz 100-25 Mg Tab), 1 TAB PO DAILY, ( Reported) Follow Up card in 2 weeks WOJCIECH LOYA MD Jan 20, 2017 14:06
== END 2017-01-20 15:40 | DRG 981 ==
LOC: ER 17:03 → 2 NORTH 19:04
PROVIDERS: ADMIT Internal Medicine; ATTEND Internal Medicine
PROC: 0QS03ZZ Reposition Lumbar Vertebra, Percutaneous Approach (ICD-10-PCS; principal; 2017-01-12)
PROC: 0QU03JZ Supplement Lumbar Vertebra with Synthetic Substitute, Percutaneous Approach (ICD-10-PCS; 2017-01-12)
PROC: 5A2204Z Restoration of Cardiac Rhythm, Single (ICD-10-PCS; 2017-01-13)
PROC: B24BZZ4 Ultrasonography of Heart with Aorta, Transesophageal (ICD-10-PCS; 2017-01-13)
PROC: 3E0U33Z Introduction of Anti-inflammatory into Joints, Percutaneous Approach (ICD-10-PCS; 2017-01-18)
DX: I48.91 Unspecified atrial fibrillation (principal); J96.00 Acute respiratory failure, unspecified whether with hypoxia or hypercapnia; Z68.41 Body mass index [BMI] 40.0-44.9, adult; E66.01 Morbid (severe) obesity due to excess calories; M48.56XA Collapsed vertebra, not elsewhere classified, lumbar region, initial encounter for fracture; I48.92 Unspecified atrial flutter; M51.26 Other intervertebral disc displacement, lumbar region; E11.9 Type 2 diabetes mellitus without complications; E78.00 Pure hypercholesterolemia, unspecified; E78.5 Hyperlipidemia, unspecified; G47.33 Obstructive sleep apnea (adult) (pediatric); I10 Essential (primary) hypertension; K59.00 Constipation, unspecified; Z82.49 Family history of ischemic heart disease and other diseases of the circulatory system; Z87.891 Personal history of nicotine dependence; Z88.5 Allergy status to narcotic agent; Z90.710 Acquired absence of both cervix and uterus; E87.6 Hypokalemia; F32.9 Major depressive disorder, single episode, unspecified; F41.9 Anxiety disorder, unspecified; M54.16 Radiculopathy, lumbar region
CPT/HCPCS: 22514; 36415; 71010; 72148; 76376; 80048; 80053; 83735; 83880; 84443; 84484; 85025; 85610; 92960; 93005; 93306; 93312; 93325; 94620; 96361; 96374; 96375; 99152; 99153; C1725; C1892; J0690; J1030; J1170; J1650; J2250; J2405; J2704; J3010; J3490; J7030; J7120; J7509; Q9967; 97035; 97116; 97140; 97530; 97535; 99285-25

== ENCOUNTER → 2020-09-12 | Outpatient (CLI) | payer MEDICARE ==
[~2020-09-12] MED LIST: AMIO200T6 PO; APIX5TAB PO; ATOR20TA58 PO; BUPR150T8 PO; CYCL10TA2 PO; DILT240C33 PO; DOCU-109 PO; HYDR-2761 PO; HYDR12.575 PO; IBUP-1007 PO; LOSA-73 PO; LOSA1TAB22 PO; OXYB5TAB10 PO; OXYC10TA46 PO; OXYC1TAB7 PO; SERT100T PO; SIMV40TA18 PO
== END ==
LOC: LAB 11:14
PROVIDERS: ATTEND Internal Medicine Cardiovascular Disease
DX: Z01.812 Encounter for preprocedural laboratory examination (principal); Z20.822 Contact with and (suspected) exposure to COVID-19
CPT/HCPCS: U0003; U0005

== ENCOUNTER 2020-09-19 08:24 | Outpatient (CLI) | payer MEDICARE ==
[2020-09-19] VITALS (10 sets, daily range): BP systolic 99–142; BP diastolic 72–88
[~2020-09-19] VITALS: Ht 157.5 cm; Wt 106.8 kg
[~2020-09-19 08:24] MED LIST changes: -BUPR150T8 PO; -HYDR12.575 PO; -OXYB5TAB10 PO
[2020-09-19 08:56] LABS: HEMATOCRIT 44.6 % (36.0-47.0); HEMOGLOBIN 15.3 g/dL (12.0-15.5); RED BLOOD COUNT 4.51 x10^6/uL (3.50-5.40); RED CELL DISTRIBUTION WIDTH 14.9 % (11.5-14.5); WHITE BLOOD COUNT 5.6 x10^3/uL (4.0-11.0)
[2020-09-19 09:05] LABS: CALCIUM 8.8 mg/dL (8.5-10.1); GFR 54.5; POTASSIUM 4.3 mmol/L (3.5-5.1)
[2020-09-19 09:11] LABS: PROTHROMBIN TIME PATIENT 12.4 SEC (11.7-14.0)
[2020-09-19] MEDS ORDERED: OXYB5TAB10 PO (09:18)
[2020-09-19] MEDS ORDERED: BUPR150T8 PO (09:18)
[2020-09-19] MEDS ORDERED: HYDR12.575 PO (09:18)
[2020-09-19] MEDS ORDERED: IODIXANOL 320 MG/ML 100 ML VIAL. ONE ×2 (09:52)
[2020-09-19] MEDS ORDERED: LIDOCAINE 1% PF 2 ML VIAL. ONE (09:52)
[2020-09-19] MEDS ORDERED: MIDAZOLAM HCL/PF 2 MG/2 ML VIAL. ONE (09:55)
[2020-09-19] MEDS ORDERED: HEPARIN for IV BOLUS 10,000 UNIT/10 ML VIAL. ONE (09:55)
[2020-09-19] MEDS ORDERED: VERAPAMIL 5 MG/2 ML VIAL. ONE (09:55)
[2020-09-19] MEDS ORDERED: fentaNYL PF VIAL 100 MCG/2 ML VIAL ONE (09:55)
[2020-09-19] MEDS ORDERED: NITROGLYCERIN 200 MCG/2 ML SYRINGE FOR CATH/VASC LAB. ONE ×2 (09:56→10:35)
[2020-09-19] MEDS ORDERED: MIDAZOLAM HCL/PF 2 MG/2 ML VIAL. IV ONE (10:00)
[2020-09-19] MEDS ORDERED: HEPARIN for IV BOLUS 10,000 UNIT/10 ML VIAL. IART ONE (10:00)
[2020-09-19] MEDS ORDERED: LIDOCAINE 1% PF 2 ML VIAL. INJ ONE (10:00)
[2020-09-19] MEDS ORDERED: fentaNYL PF VIAL 100 MCG/2 ML VIAL IV ONE (10:00)
[2020-09-19] MEDS ORDERED: IODIXANOL 320 MG/ML 100 ML VIAL. IART ONE (10:00)
[2020-09-19] MEDS ORDERED: NITROGLYCERIN 200 MCG/2 ML SYRINGE FOR CATH/VASC LAB. IART ONE (10:00)
[2020-09-19] MEDS ORDERED: VERAPAMIL 5 MG/2 ML VIAL. IART ONE (10:00)
[2020-09-19] MEDS ORDERED: CONTRAST GIVEN. MC PRN (10:15)
--- NOTE | 2020-09-19 11:06 | CARD ---
MR#: [id number] Date of Study: 09/19/2020 Ordering Physician: SERENITY RICO, Referring Physician: SERENITY RICO, Tech: RT Augusto(R) APPROVED REPORT Technologist: RT Augusto(R) Nurse: Denisha Chacko RN Procedure(s) performed: FLUORO TIME 1.9 MIN. DOSE [id number] CONTRAST 46ML VISI. MODERATE SEDATION 22 MIN LHC, Coronary angiography CS Clinical Frailty Scale [facility] Clinical Frailty Scale: Mildly Frail Heart Failure Heart Failure: Yes If Yes, Newly Diagnosed: No If Yes, HF Type: Diastolic If Yes, NYHA Class: Class II PROCEDURE NARRATIVE Clinical information: 70-year-old woman comes to the catheterization laboratory for an abnormal stress test in the setting of exertional dyspnea. Procedure details: After proper informed consent the right wrist was prepped and draped in usual sterile fashion. Under 1% lidocaine local anesthesia a 6 Samoan sheath was placed in the right radial artery via the Seldin keegan technique. Next diagnostic angiography was performed with a 6 Samoan TIG catheter. Left ventric ular end-diastolic pressure was obtained with a 6 Samoan TIG catheter and a pullback was performed. At case completion all catheters were removed over wire and hemostasis was achieved with a Kwelia rad ial band. Findings: Aorta: 120/70 LVEDP 16 mmHg No pullback gradient across aortic valve Coronary angiography: Left main is a large-caliber vessel with normal angiographic appearance LAD is a moderate to large caliber vessel with normal angiographic appearance Left circumflex is a moderate to large caliber vessel with normal angiographic appearance RCA is a moderate to large caliber dominant vessel with normal angiographic appearance *Overall flow in the coronary arteries is suggestive of microvascular dysfunction No acute complications. The patient tolerated the procedure well. Conclusion 1. Mildly elevated left-sided filling pressures consistent with chronic diastolic HF 2. No significant epicardial coronary artery disease 3. Overall coronary flow suggestive of microvascular dysfunction Recommendations Aggressive Medical Therapy Weight Loss Reduction Program Signed by : Serenity Rico, Electronically Approved : 09/19/2020 11:06:19
--- NOTE | 2020-09-19 11:16 | PDOC ---
MODERATE SEDATION ASSESSMENT RISKS/ALTERNATIVES Risks/Alternatives Risks and alternatives of this type of sedation and procedure discussed with: RISK/ALTERNATIVES: Patient H & P ON CHART H & P H & P on chart and reviewed for co-morbid conditions and appropriate labs. H&P ON CHART: Yes STATUS PREG STATUS ASSESSED: N/A MEDS/ALLERGIES REVIEWED Meds/Allergies Reviewed Medications and Allergies including time and route of recently administered narcotics and sedatives. MEDS/ALLERGIES REVIEWED: Yes ASA RATING ASA RATING: II AIRWAY ASSESSMENT Airway Assessment Airway patency, oral function limitations, presence of caps, crowns, dentures, partials, and ability to extend neck assessed. AIRWAY ASSESSMENT: Yes MALLAMPATI SCORE MALLAMPATI SCORE: II PRE-SEDATION ASSESSMENT PRE-SEDATION ASSESSMENT: Yes (late entry) SERENITY RICO MD Sep 19, 2020 11:16
--- NOTE | 2020-09-19 13:33 | NUR ---
Pt ambulated and tolerate PO. Discharge instructions reviewed with patient. Pt home with family
== END 2020-09-19 13:35 | disposition home or self-care (01) ==
LOC: CCL 08:24
PROVIDERS: ATTEND Internal Medicine Cardiovascular Disease
DX: R94.39 Abnormal result of other cardiovascular function study (principal); R06.09 Other forms of dyspnea; I48.91 Unspecified atrial fibrillation; I11.0 Hypertensive heart disease with heart failure; I50.32 Chronic diastolic (congestive) heart failure; J45.909 Unspecified asthma, uncomplicated; F32.9 Major depressive disorder, single episode, unspecified; Z90.710 Acquired absence of both cervix and uterus; Z98.890 Other specified postprocedural states; Z79.899 Other long term (current) drug therapy; Z85.828 Personal history of other malignant neoplasm of skin; Z87.891 Personal history of nicotine dependence; Z72.89 Other problems related to lifestyle; Z88.5 Allergy status to narcotic agent
CPT/HCPCS: 36415; 80048; 85027; 85610; 93458; 99152; C1769; C1894; J1644; J2250; J3010; J3490; Q9967

== ENCOUNTER → 2020-12-12 | Outpatient (CLI) | payer MEDICARE ==
[2020-09-19 13:37] VITALS: BP 122/84
[~2020-12-12] MED LIST changes: +BUPR150T8 PO; +HYDR12.575 PO; +OXYB5TAB10 PO
--- NOTE | 2020-12-12 11:48 | KCIC ---
EXAM: Right great toe, 2 views. HISTORY: Fall. Pain. COMPARISON: None. FINDINGS: 2 views of the right great toe are obtained. There is a mildly displaced fracture of the mi d to distal aspect of the right first proximal phalanx. There is surrounding soft tissue swelling. Th ere is no radiodense foreign body. IMPRESSION: Mildly displaced fracture of the first proximal phalanx. Electronically signed by: Talisha Juárez MD (12/12/2020 11:45 AM) [id number]
--- NOTE | 2020-12-12 12:31 | KCIC ---
EXAM: DUAL ENERGY X-RAY ABSORPTIOMETRY (DEXA). HISTORY: Postmenopausal screening. FINDINGS: The lowest measured T-score is -1.4 in the left hip, based on a bone mineral density of 0.7 66 g/cm^2. Refer to the worksheets for full detail. No comparison examinations are available. IMPRESSION: 1. Low bone mass. Bone mineral density yields a T-score between -1.0 and -2.5. Fracture risk is incre ased. 2. FRAX report: Not calculated. METHODOLOGY: Dual energy x-ray absorptiometry was performed to measure bone mineral density. The foll owing analysis is based on the 2019 Official Positions of the International Society for Clinical Dens itometry: Measurements of the hips and the average of L1-L4 are preferred. When the spine and/or hip cannot be feasibly measured or interpreted, or in the setting of hyperparathyroidism, distal radial bone minera l density may be measured. The lumbar spine T-score is based on the average bone mineral density of L1-L4. In the setting of art ifact or anatomic abnormality, some lumbar levels may be excluded, and the remaining levels used for calculation. A single lumbar level is not used for diagnosis, and if only a single level is available for assessment, another anatomic site will be used to assign a diagnosis. The hip T-score is based on the bone mineral density measurement of the femoral neck or total proxima l femur of either side, whichever is lowest. Bilateral mean values are not used for diagnosis. The forearm T-score is derived from 33% of the distal radius of the nondominant forearm. Electronically signed by: Talisha Juárez MD (12/12/2020 12:29 PM) [id number]
--- NOTE | 2020-12-13 16:45 | KCIC ---
3d digital tomography Bilateral History: Routine screening Comparison: None available. Findings: Breast Tissue Density C : The breast tissue is heterogeneously dense. Scattered fibroglandular eleme nts may obscure underlying pathology. There is a focal asymmetry in the right outer lower quadrant, 4:00 position about 5 cm from the nippl e. This measures about 0.9 cm in maximum dimension. No other evidence for breast mass is seen. There are scattered benign calcifications. There are no suspicious calcifications or areas of architectural distortion. Impression: Focal asymmetry in the 4:00 position left breast, about 5 cm from the nipple. Further evaluation with diagnostic left mammogram, including 2-D and 3-D rolled CC views and mediolat eral views is recommended. If this persists, targeted left breast ultrasound should be performed. Assessment: BI-RADS category 0. Incomplete. Additional imaging is recommended. Recommendation: Diagnostic 3-D left mammogram. If needed, targeted left breast ultrasound. Your mammogram demonstrates that you have dense breast tissue, which could hide abnormalities, and if you have other risk factors for breast cancer that have been identified, you might benefit from supp lemental screening tests that may be suggested by your ordering physician. Dense breast tissue, in a nd of itself, is a relatively common condition. This information is not provided to cause undue conc christiane, but rather to raise your awareness and to promote discussion with your physician regarding the p resence of other risk factors, in addition to dense breast tissue. A report of your mammography resul ts will be sent to you and your physician. You should contact your physician if you have any questio ns or concerns regarding this report. The patient will receive a letter with the results in the mail. Patient information is entered into [employer] reminder system with a target due date for the next mammogram. The patient will receive a reminde r. Electronically signed by: Delmis Bermeo MD (12/13/2020 4:43 PM) [id number]
== END ==
LOC: KCIC MAMMO 10:40
PROVIDERS: ATTEND Family Medicine
DX: Z12.31 Encounter for screening mammogram for malignant neoplasm of breast (principal); M85.89 Other specified disorders of bone density and structure, multiple sites; Z78.0 Asymptomatic menopausal state; S92.411A Displaced fracture of proximal phalanx of right great toe, initial encounter for closed fracture; W19.XXXA Unspecified fall, initial encounter; Y93.89 Activity, other specified; Y92.89 Other specified places as the place of occurrence of the external cause; Y99.8 Other external cause status
CPT/HCPCS: 73620; 77063; 77067; 77080